=== PATIENT | female | born 1990 | race Caucasian/White ===

== ENCOUNTER 2020-10-30 13:41 | Emergency (ER) | payer OTHER, SELFPAY ==
[2020-10-30 13:57] VITALS: BP 130/84; PULSE 97; RESP 16; TEMP 36.8; O2SAT 100
--- NOTE | 2020-10-30 15:03 | ED.EAR ---
HPI - Ear Problem General Chief complaint: Ear Stated complaint: fb in ear Time Seen by Provider: 10/30/20 15:17 Source: patient Mode of arrival: ambulatory Limitations: no limitations History of Present Illness HPI Narrative: Karina Beasley is a 30 yo feale with a PMH of depression who comes with 4 days of pain in right ear from getting a Q-tip stuck in ear and also has tooth pain and swelling on the left unsure if it is her rear molar are upper left rear tooth pain is a / Related Data Home Medications Medication Instructions Recorded Confirmed bupropion HCl [Wellbutrin SR] 150 mg PO DAILY 10/30/20 10/30/20 fluoxetine [Prozac] 20 mg PO DAILY 10/30/20 10/30/20 Allergies Allergy/AdvReac Type Severity Reaction Status Date / Time Penicillins Allergy Unknown Swelling Verified 10/30/20 14:17 Sulfa (Sulfonamide AdvReac Unknown Nausea and Verified 10/30/20 14:17 Antibiotics) Vomiting preservatives in apple Allergy Severe Swelling Uncoded 02/06/17 12:01 juice/ throat to swell Review of Systems Review of Systems: Narrative: CONSTITUTIONAL: Denies fever, chills, sweats. EYES: Denies visual changes, redness, discharge. ENT: Denies rhinorrhea, congestion, sore throat, right otalgia. Dental pain CARDIOVASCULAR: Denies chest pain, palpitations, edema. RESPIRATORY: Denies dyspnea, wheezing, cough GASTROINTESTINAL: Denies abdominal pain, nausea, vomiting, diarrhea. GENITOURINARY: Denies dysuria, hematuria, abnormal discharge SKIN: Denies rash or itching. NEUROLOGIC: Denies numbness, or focal weakness. PSYCHIATRIC: Denies anxiety or depression. [facility] Past Medical History Medical History Depression Family History Family History Mother Family history of malignant neoplasm of cervix Social History Social History Smoking status: Never smoker Second hand tobacco smoke exposure: Yes Alcohol intake: current Comments At time of signature, I agree with nursing past medical, surgical, social and family history. There is no relevant family history pertinent to the presenting complaint. Exam Narrative: Exam Narrative: GENERAL: This is a well-nourished, well-developed patient, in mild distress. HEAD: normocephalic, atraumatic. EYES: Sclera clear/white. Vision is grossly intact. EARS: External ears normal, auditory canals clear on the left, diffuse white material from Q-tip on ri TMs normal without perforation. Hearing grossly intact. NOSE: External nose normal without nasal discharge, nares without redness, no rhinorrhea. THROAT: Mucous membranes moist, posterior pharynx pink, swelling on right cheek with fractured molar on left lower tooth 18, swelling and cheek is next to left upper teeth NECK: Neck supple, non-tender CARDIOVASCULAR: Regular rate and rhythm without murmurs, gallops, or rubs. RESPIRATORY: Clear to auscultation. Breath sounds equal bilaterally. No wheezes, rales, or rhonchi. GASTROINTESTINAL: Abdomen soft, non-tender, SKIN: warm, intact with no suspicious lesions or rash, good texture and turgor. NEURO: awake, alert, and oriented to person, place and time. There were no obvious focal neurologic abnormalities. Steady gait EXTREMITIES: Normal range of motion. BACK: Nontender without deformity Course Course Emergency Course: Patient here with Q-tip in right ear and tooth pain on left lower jaw with swelling For last year, started on eardrops Started on clindamycin 300 for 10 days 3 times daily for tooth and ear Tylenol 3 for pain Vital Signs Vital signs: Vital Signs Temperature 98.3 F 10/30/20 13:57 Pulse Rate 97 10/30/20 13:57 Respiratory Rate 16 10/30/20 13:57 Blood Pressure 130/84 10/30/20 13:57 Pulse Oximetry 100 10/30/20 13:57 Temperature 98.3 F 10/30/20 13:57 Pulse Rate 97 10/30/20 13:57 Respiratory Rate 16 10/30/20 13:57 Blood Pressure 130/8
== END 2020-10-30 15:44 | disposition home or self-care (01) ==
PROVIDERS: Emergency Provider Nurse Practitioner
DX: T16.1XXA Foreign body in right ear, initial encounter (principal); S02.5XXA Fracture of tooth (traumatic), initial encounter for closed fracture; X58.XXXA Exposure to other specified factors, initial encounter; F32.9 Major depressive disorder, single episode, unspecified
CPT/HCPCS: 99213; G0463

== ENCOUNTER 2023-02-28 19:38 | Inpatient (IN) | payer OTHER, SELFPAY ==
--- NOTE | ~2023-02-28 | MR_ITS ---
EXAMINATION: MR abdomen wo/w con DATE: 03/04/2023 11:35 INDICATION: Ascites. Liver failure. Evaluation of liver and gallbladder lesions. TECHNIQUE: Magnetic resonance imaging (MRI) of the abdomen was performed without and with 14 mL Multi blaze intravenous contrast. Sequences included coronal T2-weighted SS-FSE, coronal and axial FS 2D-F IESTA, axial STIR FSE, axial T2-weighted SS-FSE, axial T2-weighted FS SS-FSE, axial diffusion-weighte d SE, axial dual-echo T1-weighted FSPGR, and axial and coronal T1-weighted LAVA. Postcontrast axial T 1-weighted LAVA images were obtained in a time course. Postcontrast coronal T1-weighted LAVA images w ere obtained. COMPARISON: None. FINDINGS: Arch size is normal. No pericardial or pleural effusion. Moderate-sized sliding-type hiatal hernia. T here is a large amount of ascites throughout the abdomen and pelvis which also extends into the hiata l hernia. Hepatosplenomegaly with the right hepatic lobe measuring up to 26 cm craniocaudal length an d with spleen measuring 13.3 cm in craniocaudal length. Subtle surface nodularity and heterogeneous s ignal to the liver consistent with cirrhosis. There is a tiny T2 hyperintense nonenhancing cyst in th e right hepatic lobe. 3.7 x 2.4 cm region of focal hepatic steatosis along the gallbladder fossa whic h demonstrates increased signal on the fat LAVA Flex images and the in phase images with signal dropo ut on the opposed phase images as well as decreased signal relative to the surrounding renal parenchy ma water LAVA Flex post contrast images. 1.8 cm subtly T2 hyperintense and arterially enhancing lesio n in segment 2 of the liver with no evident capsule or contrast washout on the 5 and 10 minute delaye d images most consistent with a flash filling hemangioma. No intrahepatic biliary ductal dilation. De compressed gallbladder with edematous wall thickening likely related to liver disease. No intralumina l filling defects to suggest cholelithiasis. Pancreas, bilateral adrenal glands and kidneys are zenon l. No bowel obstruction. Small fat and fluid containing umbilical hernia. Extensive mesenteric and claire dy wall edema. No pathologically enlarged abdominal or upper pelvic lymphadenopathy. Bones are unrema rkable with normal marrow signal throughout. IMPRESSION: 1. Cirrhosis mesenteric and body wall edema and large amount of ascites. 2. 3.7 x 2.4 cm region of focal hepatic steatosis along the gallbladder fossa and 1.8 cm LI-RADS 3 ar terially enhancing lesion in segment 2 of liver which remains hyperintense to liver on delayed postco ntrast imaging is likely representing a flash filling hemangioma or focal nodular hyperplasia. Would recommend follow-up imaging in 3-6 months. 3. Mild splenomegaly consistent with secondary portal venous hypertension. Reviewed, dictated and finalized at location A. IMPRESSION: 1. Cirrhosis mesenteric and body wall edema and large amount of ascites. 2. 3.7 x 2.4 cm region of focal hepatic steatosis along the gallbladder fossa a nd 1.8 cm LI-RADS 3 arterially enhancing lesion in segment 2 of liver which rem ains hyperintense to liver on delayed postcontrast imaging is likely representi ng a flash filling hemangioma or focal nodular hyperplasia. Would recommend fol low-up imaging in 3-6 months. 3. Mild splenomegaly consistent with secondary portal venous hypertension.
--- NOTE | ~2023-02-28 | US_ITS ---
EXAMINATION: US paracentesis abd w/image DATE: 03/02/2023 13:55 INDICATION: Ascites. TECHNIQUE: The procedure and its risks and benefits were discussed with the patient. Potential risks discussed included bleeding and infection. The skin was prepped and draped in sterile fashion. 1% lid ocaine was used for local anesthesia. Under ultrasound guidance, a 5 Fr catheter with trochar was adv anced into the ascites in the right lower quadrant. Fluid was aspirated into vacuum bottles. The cath eter was removed, and a dressing was applied. There were no immediate complications. FINDINGS: Ultrasound images demonstrate ascites and the catheter within the fluid. IMPRESSION: 1. Successful ultrasound-guided paracentesis yielding 2600 mL of clear yellow fluid. Reviewed, dictated and finalized at location A. IMPRESSION: 1. Successful ultrasound-guided paracentesis yielding 2600 mL of clear yellow f luid.
--- NOTE | ~2023-02-28 | US_ITS ---
EXAMINATION: US abdomen limited DATE: 03/07/2023 14:27 INDICATION: Ascites TECHNIQUE: Multiple grayscale and Doppler ultrasound images of the abdomen were obtained as a pit clerk f or a planned paracentesis. Findings were discussed with the patient who was given the option to eithe r proceed with the planned paracentesis or defer at this time. Given the relatively small amount of a scites the patient elected to defer the planned paracentesis. COMPARISON: None FINDINGS: Small amount of ascites along the liver in the right upper quadrant along the caudal margin of the li marlen in the right lower quadrant. Minimal ascites in the left abdomen. IMPRESSION: 1. Small amount of right-sided predominant ascites, significantly less than at the time of the most r ecent paracentesis which yielded 2450 mL fluid. Given the small amount of fluid, the patient elected to defer the planned paracentesis at this time. Reviewed, dictated and finalized at location A. IMPRESSION: 1. Small amount of right-sided predominant ascites, significantly less than at the time of the most recent paracentesis which yielded 2450 mL fluid. Given the small amount of fluid, the patient elected to defer the planned paracentesis a t this time.
--- NOTE | ~2023-02-28 | CT_ITS ---
EXAMINATION: CT abdomen pelvis w con INDICATION: Ascites, liver failure, abdominal pain TECHNIQUE: Computed tomographic images of the abdomen and pelvis were obtained after the administrati on of 100 cc of Omnipaque 350 intravenous contrast. The dose-length product (DLP) was 494.75 mGy-cm. Automated exposure control and iterative reconstruction technique were employed. COMPARISON: None available FINDINGS: There is a moderate-sized hiatal hernia containing a portion of the stomach and ascites. Th e heart size is normal. The liver is enlarged and demonstrates heterogeneous enhancement. There is no dularity of the liver surface. There is a 1.4 cm enhancing lesion in liver segment II. There is a 3.7 x 2.3 cm hypoenhancing area of the liver adjacent to the gallbladder fossa. The spleen, pancreas, an d adrenal glands are normal. There is mild wall thickening of the gallbladder, likely related to paperhanger lisa liver disease. Upper abdominal and periesophageal varices are noted. The kidneys are unremarkable . No pathologically enlarged abdominal or pelvic lymph nodes are identified. No free intraperitoneal gas or evidence of bowel obstruction. There is a moderate volume of ascites. The appendix is normal. Mild wall thickening of the ascending and transverse colon may reflect portal colopathy. There is a s mall umbilical hernia containing ascites and fat. IMPRESSION: 1. Cirrhosis with hepatomegaly and portal hypertension. 2. Moderate volume of ascites. 3. Enhancing lesion in the left hepatic lobe and hypoenhancing lesion near the gallbladder fossa whic h are indeterminant but suspicious on a background of cirrhosis. Follow-up MRI without and with contr ast is recommended. Reviewed, dictated and finalized at location F. IMPRESSION: 1. Cirrhosis with hepatomegaly and portal hypertension. 2. Moderate volume of ascites. 3. Enhancing lesion in the left hepatic lobe and hypoenhancing lesion near the gallbladder fossa which are indeterminant but suspicious on a background of cir rhosis. Follow-up MRI without and with contrast is recommended.
--- NOTE | ~2023-02-28 | XR_ITS ---
EXAMINATION: XR chest 2V DATE: 02/28/2023 23:29 INDICATION: Cough TECHNIQUE: Frontal and lateral views of the chest are obtained COMPARISON: None available FINDINGS: The lungs are free of acute opacities. No pleural effusion or pneumothorax. The heart size is normal. There is a moderate-sized sliding hiatal hernia. The visualized bones and soft tissues are unremarkable. IMPRESSION: 1. No acute cardiopulmonary abnormality. Reviewed, dictated and finalized at location F.
--- NOTE | ~2023-02-28 | US_ITS ---
EXAMINATION: US paracentesis abd w/image DATE: 03/05/2023 15:20 INDICATION: Ascites. TECHNIQUE: The procedure and its risks and benefits were discussed with the patient. Potential risks discussed included bleeding and infection. The skin was prepped and draped in sterile fashion. 1% lid ocaine was used for local anesthesia. Under ultrasound guidance, a 5 Fr catheter with trochar was adv anced into the ascites in the right lower quadrant. Fluid was aspirated into vacuum bottles. The cath eter was removed, and a dressing was applied. There were no immediate complications. FINDINGS: Ultrasound images demonstrate ascites and the catheter within the fluid. Also noted is a cirrhotic li marlen with nodular surface. IMPRESSION: 1. Successful ultrasound-guided paracentesis yielding 2450 mL of light crystal-colored fluid. 2. Cirrhosis. Reviewed, dictated and finalized at location A. IMPRESSION: 1. Successful ultrasound-guided paracentesis yielding 2450 mL of light crystal-c olored fluid. 2. Cirrhosis.
[2023-02-28 19:41] VITALS: BP 130/78; PULSE 124; RESP 18; TEMP 37.2; O2SAT 100
--- NOTE | 2023-02-28 23:02 | ECG_ITS ---
Measurements Intervals [place] Rate: 107 P: 47 MT: 159 QRS: -15 QRSD: 97 T: 47 QT: 381 QTc: 509 Interpretive Statements SINUS TACHYCARDIA DELAYED PRECORDIAL R/S TRANSITION BASELINE ARTIFACT- AVR, AVL ABNORMAL ECG NO PREVIOUS ECG AVAILABLE FOR COMPARISON Electronically Signed On 03-01-2023 8:12:25 CDT by Earnest Vitale D.O.
--- NOTE | 2023-02-28 23:05 | ED.ABDPAIN ---
HPI - Abdominal Pain General Chief Complaint: Abdominal Pain <Yolanda Chu PA-C - Last Filed: 03/01/23 04:42> Stated Complaint: abdominal pain <Yolanda Chu PA-C - Last Filed: 03/01/23 04:42> Time Seen by Provider: 02/28/23 22:12 <Yolanda Chu PA-C - Last Filed: 03/01/23 04:42> History of Present Illness HPI narrative: 33-year-old female with a history of what sounds like cirrhosis from alcohol abuse reports for evaluation for abdominal pain and distention, nausea, vomiting, diarrhea and bloating x2 weeks. Reports jaundice for the past few days. She states she was diagnosed in July 2022 at [facility] with liver failure. At that time she was started on spironolactone and Lasix for her liver and heart . When asked about her cardiac history, she states that she has a hole in her heart and her lungs collapsed when she was born. She does not see a limited radiology technician. She states that the past couple days she has had dark and tarry stools but denies hematochezia. She states when she is retching she sees streaks of blood in her vomit but has not vomited a large amount of blood. She denies coffee-ground emesis. She reports intermittent subjective fevers since the onset of symptoms. States the past couple of days she has noticed a small amount of swelling in her lower extremities. Patient states she used to drink 1/5 of day for 2 years, however stopped drinking after she was diagnosed with cirrhosis. She believes she has a hide measuring machine operator at [place], however has not seen them since September and is unsure of the name. She also states she was out of her furosemide and Lasix for 2 weeks, however got the prescriptions again and has been taking for the past 2 weeks. Patient states she has had a cough and congestion for the past month. She denies dysuria, hematuria, IV drug use, history of hepatitis. Abdominal surgeries include a tubal ligation 3 years ago. LMP 3 months ago which she states can be normal for her. She denies chest pain or shortness of breath. She has never required a paracentesis. <Yolanda Chu PA-C - Last Filed: 03/01/23 04:42> Related Data Allergies/Adverse Reactions: Allergies Allergy/AdvReac Type Severity Reaction Status Date / Time apple Allergy Anaphylaxis Verified 03/01/23 00:13 Penicillins Allergy Anaphylaxis Verified 03/01/23 00:12 <Yolanda Cuh PA-C - Last Filed: 03/01/23 04:42> Review of Systems Review of Systems: CONSTITUTIONAL: See HPI EYES: Denies visual changes, redness, or discharge. ENT: See HPI CARDIOVASCULAR: Denies chest pain, palpitations, or edema. RESPIRATORY: See HPI GASTROINTESTINAL: See HPI GENITOURINARY: Denies dysuria or hematuria. SKIN: Denies rash or itching. MUSCULOSKELETAL: Denies back pain, joint pain, or myalgia. NEUROLOGIC: Denies headache, numbness, dizziness, or weakness. PSYCHIATRIC: Denies anxiety or depression. <Yolanda Chu PA-C - Last Filed: 03/01/23 04:42> Exam Narrative: GENERAL: Ill-appearing, in no acute distress. HEAD: Normocephalic EYES: PERRLA. Scleral icterus ENT: Nares clear. Mucous membranes moist. Oropharynx without tonsillar hypertrophy exudate or other lesions. NECK: Supple. CHEST: No respiratory distress. Clear to auscultation, no adventitious breath sounds. HEART: Regular rate and rhythm. Systolic murmur present. Normal peripheral pulses. ABDOMEN: Distended round abdomen. Positive fluid wave. Hepatomegaly. Tenderness in the right upper quadrant and epigastrium with guarding. No rigidity. Rebound tenderness present. Rectal exam without melena or hematochezia. Hemoccult negative EXTREMITIES: Normal range of motion. No edema SKIN: Jaundice NEURO: No focal deficits. Alert and oriented x3. PSYCH: Normal mood and affect. <Yolanda Chu PA-C - Last Filed: 03/01/23 04:42> Course Course Emergency Course: 04:00 - This patient was signed out to me by ADDY Chu, pending CT abdo
[2023-02-28 23:34] LABS: Basophils Absolute Auto 0.1 K/mm3 (0.0-0.1); Basophils Percent Auto 0.7 % (0.2-1.2); Eosinophils Absolute Auto 0.1 K/mm3 (0-0.3); Eosinophils Percent Auto 0.6 % (0-4.4); Hematocrit 24.1 % (37.0-47.0); Hemoglobin 7.6 g/dL (12.0-15.0); Immature Granulocyte Absolute 0.15 K/mm3 (0.00-0.031); Immature Granulocyte Percent A 0.8 % (0-0.5); Lymphocytes Absolute Auto 2.09 K/mm3 (0.9-3.2); Lymphocytes Percent Auto 11.4 % (18.3-44.2); Mean Corpuscular HGB Conc 31.5 g/dl (32-36); Mean Corpuscular Hemoglobin 31.7 pg (26-34); Mean Corpuscular Volume 100.4 fl (80-100); Mean Platelet Volume 9.9 fl (7.4-10.4); Monocytes Absolute Auto 1.3 K/mm3 (0.1-0.6); Monocytes Percent Auto 6.9 % (2.6-8.5); Neutrophils Absolute Auto 14.6 K/mm3 (1.3-6.7); Neutrophils Percent Auto 79.6 % (45.5-73.1); Platelet Count Result 289 k/mm3 (150-375); Red Cell Distribution Width 18.6 % (11.5-14.5); White Blood Count 18.4 K/mm3 (4.5-10.0)
[2023-02-28 23:53] LABS: Alanine Aminotransferase 19 U/L (6-35); Alkaline Phosphatase 350 U/L (38-126); Aspartate Amino Transferase 100 U/L (14-36); Bilirubin,Total 8.2 mg/dL (0.2-1.3); Lactic Acid Reflex 1.9 mmol/L (0.7-2.0); Lipase 20 U/L (23-300); Magnesium 1.3 mg/dL (1.6-2.3); Phosphorus 2.1 mg/dL (2.5-4.5)
[2023-03-01] VITALS (62 sets, daily range): BP systolic 91–124; BP diastolic 55–82; PULSE 100–115; RESP 10–29; TEMP 37.1–37.2; O2SAT 92–100; BMI 28.4
[2023-03-01 00:06] LABS: Anion Gap 9 mmol/L (8-16); Blood Urea Nitrogen 3 mg/dL (7-17); Calcium 7.2 mg/dL (8.4-10.2); Carbon Dioxide 30 mmol/L (22-30); Chloride 92 mmol/L (98-107); Estimated CRCL calculation 115 ml/min; Estimated Glomerular Filt Rate > 60; Glucose 99 mg/dL (65-110); Potassium 2.4 mmol/L (3.4-5.0); Sodium 131 mmol/L (137-145)
[2023-03-01 00:13] LABS: Influenza A QL RT-PCR Negative (Negative); Influenza B QL RT-PCR Negative (Negative); SARS-CoV-2 RNA PCR Negative (Negative)
[2023-03-01] MEDS: ONDANSETRON INJ 4 MG/2 ML VIAL IV PUSH ×3 (00:14→16:05)
[2023-03-01 00:16] LABS: Appearance Urine Cloudy (Clear); Bacteria Urine None Seen /hpf; Bilirubin Urine 3+ (Negative); Blood Urine Negative (Negative); Color Urine Orange (Yellow); Glucose Urine UA Trace mg/dL (Negative); Ketones Urine Trace mg/dL (Negative); Leukocyte Esterase Ur 2+ LEU/UL (Negative); Nitrate Urine Positive (Negative); Non Pathogenic Casts 0-2; Protein Urine 2+ mg/dL (Negative); Squamous Epithelial Cell Urine Many /hpf (Few); WBC Urine 0-5 /hpf
[2023-03-01 00:17] LABS: Need Manual Microscopic Reviewed
[2023-03-01 00:20] LABS: Add Urine Microscopic? YES
[2023-03-01 00:37] LABS: Ammonia 43 umol/L (9-30)
[2023-03-01 00:38] LABS: INR 1.6; Prothrombin Time 19.5 Seconds (11.1-14.7)
[2023-03-01] MEDS: POTASSIUM CHLORIDE 20 MEQ PACKET (FOR LIQUID) 40 MEQ PO (00:42)
[2023-03-01] MEDS: MAGNESIUM SULF 1 GM/D5W 100 ML 1 GM/100 ML BAG IVPB (00:44)
[2023-03-01] MEDS: SODIUM CHLORIDE 0.9% IV 1,000 ML 999 ML IV CONT (01:51)
[2023-03-01] MEDS: POTASSIUM CHLORIDE INJ 40 MEQ in SODIUM CHLORIDE 0.9% IV 500 ML 130 MEQ IVPB (02:56)
--- NOTE | 2023-03-01 07:23 | PC.NURSE ---
Report to ROSANNE Oreilly
--- NOTE | 2023-03-01 08:46 | ADMGEN ---
This patient, Karina Beasley, was admitted to [facility] Surg Room 312-01. Patient/family oriented to hospital policies and general routines including ID bracelet, bed and alarms, visiting hours, pain management, procedures, bathroom and other care routines, personal items, smoking policy, room service/diet, and visiting hours. Information on how to activate the Rapid Response Team has been discussed. Patient/Family are encouraged to report perceived risks to care and to ask questions if they do not understand what they are told or what they should do.
[2023-03-01] MEDS: FUROSEMIDE 20 MG TABLET PO (10:15)
[2023-03-01] MEDS: FLUoxetine HCL 20 MG CAPSULE PO (10:15)
[2023-03-01] MEDS: PANTOPRAZOLE 40 MG TABLET PO (10:15)
[2023-03-01] MEDS: MORPHINE SULFATE (*CRX) 2 MG/ML INJ IV PUSH ×3 (10:16→20:28)
[2023-03-01] MEDS: NICOTINE (*PBKC) 14 MG PATCH 1 PATCH TRANSDERM (10:16)
[2023-03-01] MEDS: SPIRONOLACTONE 50 MG TABLET PO (10:16)
[2023-03-01 10:57] LABS: Albumin Level 3.4 g/dL (3.5-5.1)
--- NOTE | 2023-03-01 11:27 | PC.NURSE ---
ultrasound unable to do paracentesis today. They need the patient npo after 6 am tomorrow and they will do the procedure in the afternoon. Ultrasound states that they will obtain the consent for the procedure and that they will do it tomorrow
--- NOTE | 2023-03-01 15:06 | PM.IMHP ---
H&P: HPI History of Present Illness Date/Time: 03/01/23 15:06 Chief Complaint: abdominal pain Narrative: Patient is a 33-year-old female with past medical history of cirrhosis secondary alcohol abuse, GERD, anxiety who presents to ED with complaints of abdominal pain. Patient states she was diagnosed with alcohol cirrhosis July 2022. Her last drink was 1 week ago. She has never had paracentesis before. She does have some family history of cirrhosis with her mother who at age 47 from brain aneurysm. She has never had SBP before. She denies fever, chills, nausea vomiting. patient was abdominal pain diarrhea. The ED: She was found to have leukocytosis 18.4 K, profound hypokalemia 2.4, mag 1.3, AST 100, ammonia 43. S concern for UTI as well SBP in patient has been started on Rocephin. With decompensated cirrhosis patient admitted for further management. Review of Systems Review of Systems: Constitutional: No Fever, No Chills, No Night Sweats, No Fatigue, No Malaise ENT/Mouth: No Hearing Changes, No Ear Pain, No Nasal Congestion, No Sinus Pain, No Hoarseness, No sore throat, No Rhinorrhea, No Swallowing Difficulty Eyes: No Eye Pain, No Redness, No Vision Changes Cardiovascular: No Chest Pain, No Palpitations, No Dyspnea on Exertion, No Orthopnea, No Claudication, No Edema Respiratory: No Cough, No Sputum, No Wheezing, No Shortness of Breath Gastrointestinal: endorses abdominal pain, diarrhea Genitourinary: No Dysuria, No Urinary Frequency, No Hematuria, No Urinary Incontinence, No Urgency Musculoskeletal: No Arthralgias, No Myalgias, No Joint Swelling, No Joint Stiffness, No Back Pain Skin: No Skin Lesions, No Pruritis, No Hair Changes Neuro: No Weakness, No Numbness, No Paresthesias, No Loss of Consciousness, No Syncope, No Dizziness, No Headache Psych: No Anxiety/Panic, No Depression, No Insomnia Heme: No Bruising, No Bleeding Lymph: No Adenopathy Endocrine: No Polyuria, No Polydipsia, No Temperature Intolerance PMFSH Past Medical History Medical History (Updated 03/01/23 @ 15:13 by Bert Lemon DO) Alcoholic cirrhosis of liver with ascites Depression Family History Family History (Updated 03/01/23 @ 15:10 by Bert Lemon DO) Mother Cirrhosis Brain aneurysm Social History Social History (Updated 03/01/23 @ 15:11 by Bert Lemon DO) Social History: last drink alcohol 12/2022. smokes 5cig/day Smoking status: Current every day smoker Tobacco type: cigarettes Alcohol intake: former Substance use: current Substance use type: marijuana Last use: 02/28/23 Lack of Transportation: No Lack of Food: Never True Current Housing: I Have Housing Concerned About Future Housing: No Difficulty Paying Gas/Electric Bills: No Difficulty Paying for Meds: No Currently Unemployed: No Education: High School Diploma/GED Difficulty w/ Childcare or Family Care: No Spiritual care concerns: No Meds Home Medications and Allergies Home Medications Medication Instructions Recorded Confirmed Type fluoxetine 20 mg capsule 20 mg PO DAILY 03/01/23 03/01/23 History furosemide 20 mg tablet 20 mg PO DAILY 03/01/23 03/01/23 History omeprazole 20 mg capsule,delayed 20 mg PO DAILY 03/01/23 03/01/23 History release spironolactone 50 mg tablet 50 mg PO DAILY 03/01/23 03/01/23 History Allergies Allergy/AdvReac Type Severity Reaction Status Date / Time apple Allergy Anaphylaxis Verified 03/01/23 00:13 Penicillins Allergy Anaphylaxis Verified 03/01/23 00:12 Sulfa (Sulfonamide AdvReac Nausea and Verified 03/01/23 09:06 Antibiotics) Vomiting Vital Signs Vital Signs - 24 hr 02/28/23 19:41 03/01/23 00:11 03/01/23 00:12 Temperature 37.2 C Pulse Rate 124 H 113 H Respiratory Rate 18 10 L Blood Pressure 130/78 109/66 Pulse Oximetry 100 95 95 Oxygen Delivery Room Air 03/01/23 00:15 03/01/23 00:16 03/01/23 00:43 Temperature Pu
[2023-03-01] MEDS: POTASSIUM CHLORIDE 20 MEQ ER TABLET 40 MEQ PO (16:05)
[2023-03-01] MEDS: MAGNESIUM SULF 4 GM/WATER100ML 4 GM/100 ML BAG IVPB (16:05)
[2023-03-01] MEDS: prednisoLONE ORAL SOLN 30 MG/10 ML SOLUTION 40 MG PO (16:42)
[2023-03-02 06:00] VITALS: BP 109/60; PULSE 112; RESP 14; TEMP 36.7; O2SAT 97
[2023-03-02 06:57] LABS: Basophils Absolute Auto 0.1 K/mm3 (0.0-0.1); Basophils Percent Auto 0.4 % (0.2-1.2); Eosinophils Percent Auto 0.2 % (0-4.4); Hematocrit 26.4 % (37.0-47.0); Immature Granulocyte Absolute 0.17 K/mm3 (0.00-0.031); Lymphocytes Absolute Auto 1.26 K/mm3 (0.9-3.2); Lymphocytes Percent Auto 7.3 % (18.3-44.2); Mean Corpuscular HGB Conc 30.3 g/dl (32-36); Mean Corpuscular Hemoglobin 31.3 pg (26-34); Mean Corpuscular Volume 103.1 fl (80-100); Mean Platelet Volume 10.2 fl (7.4-10.4); Monocytes Absolute Auto 0.9 K/mm3 (0.1-0.6); Monocytes Percent Auto 5.3 % (2.6-8.5); Neutrophils Absolute Auto 14.9 K/mm3 (1.3-6.7); Neutrophils Percent Auto 85.8 % (45.5-73.1); Platelet Count Result 299 k/mm3 (150-375); Red Blood Count 2.56 M/mm3 (4.2-5.4); Red Cell Distribution Width 18.4 % (11.5-14.5); White Blood Count 17.3 K/mm3 (4.5-10.0)
[2023-03-02 07:10] LABS: INR 1.6; Prothrombin Time 20.2 Seconds (11.1-14.7)
[2023-03-02 07:15] LABS: Alanine Aminotransferase 19 U/L (6-35); Albumin Level 3.2 g/dL (3.5-5.1); Alkaline Phosphatase 444 U/L (38-126); Anion Gap 6 mmol/L (8-16); Aspartate Amino Transferase 62 U/L (14-36); Bilirubin Direct 1.7 mg/dL (0-0.3); Bilirubin,Total 6.7 mg/dL (0.2-1.3); Blood Urea Nitrogen 2 mg/dL (7-17); Calcium 7.8 mg/dL (8.4-10.2); Carbon Dioxide 29 mmol/L (22-30); Chloride 100 mmol/L (98-107); Estimated CRCL calculation 146 ml/min; Estimated Glomerular Filt Rate > 60; Glucose 128 mg/dL (65-110); Magnesium 2.2 mg/dL (1.6-2.3); Potassium 3.9 mmol/L (3.4-5.0); Sodium 135 mmol/L (137-145)
[2023-03-02 07:45] LABS: Hepatitis B Surface Antigen Negative (Negative)
[2023-03-02 07:50] LABS: HAV RESULT Negative (Negative); Hepatitis B Core IgM Result Negative (Negative)
[2023-03-02 08:00] VITALS: BP 120/87; PULSE 96; RESP 18; TEMP 35.9; O2SAT 98
[2023-03-02 08:02] LABS: Hepatitis C Virus Antibody Negative (Negative)
[2023-03-02] MEDS: POTASSIUM CHLORIDE 20 MEQ ER TABLET 40 MEQ PO (08:21)
[2023-03-02] MEDS: FLUoxetine HCL 20 MG CAPSULE PO (08:21)
[2023-03-02] MEDS: FUROSEMIDE 20 MG TABLET PO (08:21)
[2023-03-02] MEDS: SPIRONOLACTONE 50 MG TABLET PO (08:21)
[2023-03-02] MEDS: PANTOPRAZOLE 40 MG TABLET PO (08:22)
[2023-03-02] MEDS: THIAMINE HCL 100 MG TABLET PO (08:22)
[2023-03-02] MEDS: MULTIVITAMINS THERAPEUTIC TAB (*BKC) 1 TABLET PO (08:22)
[2023-03-02] MEDS: FOLIC ACID 1 MG TABLET PO (08:22)
[2023-03-02] MEDS: MORPHINE SULFATE (*CRX) 2 MG/ML INJ IV PUSH ×3 (08:22→20:43)
[2023-03-02] MEDS: NICOTINE (*PBKC) 14 MG PATCH 1 PATCH TRANSDERM (08:22)
[2023-03-02] MEDS: prednisoLONE ORAL SOLN 30 MG/10 ML SOLUTION 40 MG PO (08:23)
[2023-03-02 10:03] VITALS: O2SAT 94
--- NOTE | 2023-03-02 10:35 | PM.IMPN ---
Progress Note: A&P Assessment and Plan (1) SBP (spontaneous bacterial peritonitis): Code(s): K65.2 - Spontaneous bacterial peritonitis Status: Acute (2) Alcoholic cirrhosis of liver with ascites: Code(s): K70.31 - Alcoholic cirrhosis of liver with ascites Status: Acute (3) Sepsis: Qualifiers: Sepsis acute organ dysfunction status: unspecified Sepsis type: sepsis due to unspecified organism Qualified Code(s): A41.9 - Sepsis, unspecified organism Code(s): A41.9 - Sepsis, unspecified organism Status: Acute Plan # decompensated alcohol cirrhosis # likely SBP # alcohol hepatitis -patient has alcohol cirrhosis diagnosed July 2022, history of alcohol abuse with most recent drink 1 week prior to hospitalization -patient has ascites with no history of paracentesis -diagnostic paracentesis today, labs ordered, will follow cultures -antibiotics: Continue Rocephin -monitor fever curve -trend labs in a.m. for MELD -abdominal CT scan concerning for cirrhosis with portal hypertension -mildly elevated ammonia at 43, no altered mental status, patient has diarrhea hold off lactulose -has been managing with Lasix and Aldactone -antibiotics Zofran -pain control:? Tylenol norco morphine -Bennett discriminant function: 42.7 which is >32, continue glucocorticoids prednisolone 40mg daily 03/01- -MELD score 19: 6% 3 month mortality # electrolyte disturbances -potassium 3.9, repleted -sodium 135 consistent with alcohol cirrhosis -magnesium 2.2, repleted # left hepatic lobe enhancing lesion -patient will need follow-up with liver MRI with and without contrast -plan for paracentesis today, MRI can be ordered after ascitic fluid removed -with concern for possible SBP will have to hold off on biopsy, will need to schedule for outpatient # chronic conditions -GERD:? Omeprazole -depression: Fluoxetine -alcohol use disorder: Last drink a week ago, no signs of withdrawal. giving vitamins thiamine, folic acid, multivitamin Diet:??NPO for paracentesis, regular diet afterwards DVT prophylaxis:??SCDs, holding chemoprophylaxis for procedure Code status: Full code Disposition:?home >2 days Subjective Date/time seen: 03/02/23 10:35 Interval history: Patient seen and examined. She feels better today. Plan for paracentesis today, diagnostic labs were ordered and for culture. Meld score 19. Continue antibiotics for possible SBP. She denies fever, chills, nausea vomiting diarrhea. She still has significantly distended abdomen which is tender. Review of Systems Review of Systems: 10 point ROS complete, negative other than what is specified in HPI. Exam Narrative: - GENERAL:? Thin jaundice woman in no acute distress, cirrhotic appearing - EYES: EOMI. icteric. - HENT: Moist mucous membranes. - LUNGS: Clear to auscultation bilaterally, no wheezing, rhonchi, or rales. - CARDIOVASCULAR: Regular rate and rhythm. No murmur. - ABDOMEN: Soft, distended, tender on palpation, +fluid wave - EXTREMITIES: No edema. Peripheral pulses 2+. Non-tender. - NEUROLOGIC: No focal neurological deficits. CN II-XII grossly intact. - PSYCHIATRIC: Awake, Alert and oriented x 3. Appropriate mood and affect. - SKIN: jaundice Objective Data Vital Signs Vital Signs: Vital Signs - 24 hr 03/01/23 14:00 03/01/23 22:00 03/01/23 20:00 Temperature 37.2 C 37.1 C Pulse Rate 112 H 115 H 115 H Respiratory Rate 16 14 14 Blood Pressure 118/82 124/81 Pulse Oximetry 100 96 96 Oxygen Delivery Room Air 03/02/23 06:00 03/02/23 08:00 03/02/23 10:03 Temperature 36.7 C Pulse Rate 112 H Respiratory Rate 14 Blood Pressure 109/60 Pulse Oximetry 97 94 Oxygen Delivery Room Air Room Air Intake/Output Intake/Output: Intake & Output 02/27/23 02/28/23 03/01/23 03/02/23 23:59 23:59 23:59 23:59 Intake Total 2150 500 Balance 2150 500 Meds/Results Medications: Active Medications Generic Name Do
[2023-03-02 14:39] LABS: Appearance Peritoneal Fluid Hazy (Clear); Source Peritoneal Fluid Peritoneal Fluid
[2023-03-02 14:40] LABS: Color Peritoneal Fluid Yellow (Colorless); Lymphocytes Peritoneal Fluid 9 %; Neutrophils Peritoneal Fluid 6 % (0-25); Nucleated Cells Peritoneal Flu 115 /uL (0-500); RBC Peritoneal Fluid < 2000 /uL (0-100000)
[2023-03-02 14:41] LABS: Macrophages Peritoneal Fluid 65 %; Monocytes Peritoneal Fluid 20 %
[2023-03-02 16:00] VITALS: BP 120/87; PULSE 96; RESP 18; TEMP 35.9; O2SAT 98
[2023-03-02 20:00] VITALS: PULSE 110; RESP 18; O2SAT 97
[2023-03-02 21:09] VITALS: BP 112/74; PULSE 110; RESP 18; TEMP 36.3; O2SAT 97
[2023-03-03 05:21] VITALS: BP 113/70; PULSE 109; RESP 16; TEMP 36.5; O2SAT 96
[2023-03-03 06:55] LABS: Basophils Absolute Auto 0.1 K/mm3 (0.0-0.1); Basophils Percent Auto 0.4 % (0.2-1.2); Eosinophils Absolute Auto 0.1 K/mm3 (0-0.3); Eosinophils Percent Auto 0.5 % (0-4.4); Hematocrit 30.8 % (37.0-47.0); Immature Granulocyte Percent A 1.8 % (0-0.5); Lymphocytes Absolute Auto 2.55 K/mm3 (0.9-3.2); Lymphocytes Percent Auto 11.3 % (18.3-44.2); Mean Corpuscular HGB Conc 29.2 g/dl (32-36); Mean Corpuscular Hemoglobin 31.8 pg (26-34); Mean Corpuscular Volume 108.8 fl (80-100); Mean Platelet Volume 10.3 fl (7.4-10.4); Monocytes Absolute Auto 1.1 K/mm3 (0.1-0.6); Monocytes Percent Auto 4.8 % (2.6-8.5); Neutrophils Absolute Auto 18.4 K/mm3 (1.3-6.7); Neutrophils Percent Auto 81.2 % (45.5-73.1); Nucleated Red Blood Cells Perc 0.1 % (0.0-0.2); Platelet Count Result 354 k/mm3 (150-375); Red Blood Count 2.83 M/mm3 (4.2-5.4); Red Cell Distribution Width 18.7 % (11.5-14.5); White Blood Count 22.6 K/mm3 (4.5-10.0)
[2023-03-03 06:58] LABS: Alanine Aminotransferase 20 U/L (6-35); Albumin Level 3.3 g/dL (3.5-5.1); Alkaline Phosphatase 444 U/L (38-126); Anion Gap 8 mmol/L (8-16); Aspartate Amino Transferase 97 U/L (14-36); Bilirubin,Total 6.6 mg/dL (0.2-1.3); Blood Urea Nitrogen 5 mg/dL (7-17); Calcium 8.4 mg/dL (8.4-10.2); Carbon Dioxide 27 mmol/L (22-30); Chloride 102 mmol/L (98-107); Estimated CRCL calculation 120 ml/min; Estimated Glomerular Filt Rate > 60; Glucose 109 mg/dL (65-110); Magnesium 1.9 mg/dL (1.6-2.3); Potassium 3.9 mmol/L (3.4-5.0); Sodium 137 mmol/L (137-145)
[2023-03-03 07:01] LABS: INR 1.4; Prothrombin Time 17.3 Seconds (11.1-14.7)
[2023-03-03 07:30] LABS: Anisocytosis 1+ (NORMAL); Platelet Estimate Adequate (Adequate)
[2023-03-03 07:31] LABS: Hypochromasia 1+ (NORMAL); Schistocytes None Seen (NORMAL)
[2023-03-03] MEDS: FUROSEMIDE 20 MG TABLET PO (09:14)
[2023-03-03] MEDS: prednisoLONE ORAL SOLN 30 MG/10 ML SOLUTION 40 MG PO (09:14)
[2023-03-03] MEDS: MULTIVITAMINS THERAPEUTIC TAB (*BKC) 1 TABLET PO (09:14)
[2023-03-03] MEDS: THIAMINE HCL 100 MG TABLET PO (09:14)
[2023-03-03] MEDS: FLUoxetine HCL 20 MG CAPSULE PO (09:14)
[2023-03-03] MEDS: PANTOPRAZOLE 40 MG TABLET PO (09:14)
[2023-03-03] MEDS: SPIRONOLACTONE 50 MG TABLET PO (09:14)
[2023-03-03] MEDS: FOLIC ACID 1 MG TABLET PO (09:14)
[2023-03-03] MEDS: NICOTINE (*PBKC) 14 MG PATCH 1 PATCH TRANSDERM (09:20)
[2023-03-03] MEDS: MORPHINE SULFATE (*CRX) 2 MG/ML INJ IV PUSH ×2 (09:20→22:01)
[2023-03-03 14:28] VITALS: BP 110/62; PULSE 106; RESP 16; TEMP 36.6; O2SAT 95
[2023-03-03 20:00] VITALS: PULSE 88; RESP 13; O2SAT 97
--- NOTE | 2023-03-03 21:48 | PM.IMPN ---
Progress Note: A&P Assessment and Plan (1) SBP (spontaneous bacterial peritonitis): Code(s): K65.2 - Spontaneous bacterial peritonitis Status: Acute (2) Alcoholic cirrhosis of liver with ascites: Code(s): K70.31 - Alcoholic cirrhosis of liver with ascites Status: Acute (3) UTI (urinary tract infection): Qualifiers: Hematuria presence: with hematuria Urinary tract infection type: acute cystitis Qualified Code(s): N30.01 - Acute cystitis with hematuria Code(s): N39.0 - Urinary tract infection, site not specified Status: Acute (4) Sepsis: Qualifiers: Sepsis acute organ dysfunction status: unspecified Sepsis type: sepsis due to unspecified organism Qualified Code(s): A41.9 - Sepsis, unspecified organism Code(s): A41.9 - Sepsis, unspecified organism Status: Acute (5) Hypokalemia: Code(s): E87.6 - Hypokalemia Status: Acute Plan Plan # decompensated alcohol cirrhosis # likely SBP # alcohol hepatitis -patient has alcohol cirrhosis diagnosed July 2022, history of alcohol abuse with most recent drink 1 week prior to hospitalization -patient has ascites with no history of paracentesis -diagnostic?paracentesis done, labs pending, gram stain negative -antibiotics: Continue Rocephin -monitor fever curve -trend labs in a.m. for MELD -abdominal CT scan concerning for cirrhosis with portal hypertension -mildly elevated ammonia at 43, no altered mental status, patient has diarrhea hold off lactulose -has been managing with Lasix and Aldactone -antibiotics Zofran -pain control:? Tylenol norco morphine -Bennett discriminant function: 42.7 which is >32, continue glucocorticoids prednisolone 40mg daily 03/01- -MELD score 19: 6% 3 month mortality - will likely need another paracentesis with albumin until more is drained - ct prednisolone 40mg/day for alcoholic hepatitis # electrolyte disturbances -potassium 3.9, repleted -sodium 135 consistent with alcohol cirrhosis -magnesium 2.2, repleted # left hepatic lobe enhancing lesion - had paracentesis - mri w/wo con for liver lesions # chronic conditions -GERD:? Omeprazole -depression: Fluoxetine -alcohol use disorder: Last drink a week ago, no signs of withdrawal. giving vitamins thiamine, folic acid, multivitamin Diet:??regular diet, low sodium preferably DVT prophylaxis:??SCDs, holding chemoprophylaxis for procedure Code status: Full code Disposition:?home >2 days Subjective Date/time seen: 03/03/23 21:48 Interval history: still has abd pain and abd distention after paracentesis Exam Narrative: - GENERAL:? Thin jaundice woman in no acute distress, cirrhotic appearing - EYES: EOMI. icteric. - HENT: Moist mucous membranes. - LUNGS: Clear to auscultation bilaterally, no wheezing, rhonchi, or rales. - CARDIOVASCULAR: Regular rate and rhythm. No murmur. - ABDOMEN: Soft, distended, tender on palpation, +fluid wave - EXTREMITIES: No edema. Peripheral pulses 2+. Non-tender. - NEUROLOGIC: No focal neurological deficits. CN II-XII grossly intact. - PSYCHIATRIC: Awake, Alert and oriented x 3. Appropriate mood and affect. - SKIN: jaundice Objective Data Vital Signs Vital Signs: Vital Signs - 24 hr 03/03/23 05:21 03/03/23 08:00 03/03/23 14:28 Temperature 97.7 F 98 F Pulse Rate 109 H 106 H Respiratory Rate 16 16 Blood Pressure 113/70 110/62 Pulse Oximetry 96 95 Oxygen Delivery Room Air Intake/Output Intake/Output: Intake & Output 02/28/23 03/01/23 03/02/23 03/03/23 23:59 23:59 23:59 23:59 Intake Total 2200 1580 2520 Output Total 2600 Balance 2200 -1020 2520 Meds/Results Medications: Active Medications Generic Name Dose Route Start Last Admin Trade Name Freq PRN Reason Stop Dose Admin Acetaminophen 650 mg 03/01/23 09:46 Acetaminophen 325 Mg Tablet PO Q4H PRN Mild Pain (1-3) or Fever Hydrocodone Bitart/Acetaminophen 1 tab 03/01
[2023-03-03 22:21] VITALS: BP 103/64; PULSE 88; RESP 13; TEMP 36.6; O2SAT 97
[2023-03-04 05:19] VITALS: BP 121/75; PULSE 92; RESP 12; TEMP 37.3; O2SAT 98
[2023-03-04] MEDS: MORPHINE SULFATE (*CRX) 2 MG/ML INJ IV PUSH ×3 (08:43→20:13)
[2023-03-04] MEDS: NICOTINE (*PBKC) 14 MG PATCH 1 PATCH TRANSDERM (08:46)
[2023-03-04] MEDS: prednisoLONE ORAL SOLN 30 MG/10 ML SOLUTION 40 MG PO (08:47)
[2023-03-04] MEDS: SPIRONOLACTONE 50 MG TABLET PO ×2 (08:50→16:31)
[2023-03-04] MEDS: FUROSEMIDE 20 MG TABLET PO ×2 (08:50→16:30)
[2023-03-04] MEDS: PANTOPRAZOLE 40 MG TABLET PO (08:50)
[2023-03-04] MEDS: THIAMINE HCL 100 MG TABLET PO (08:50)
[2023-03-04] MEDS: FOLIC ACID 1 MG TABLET PO (08:50)
[2023-03-04] MEDS: MULTIVITAMINS THERAPEUTIC TAB (*BKC) 1 TABLET PO (08:51)
[2023-03-04] MEDS: FLUoxetine HCL 20 MG CAPSULE PO (08:51)
[2023-03-04 14:00] VITALS: BP 99/59; PULSE 84; RESP 16; TEMP 37.1; O2SAT 92
--- NOTE | 2023-03-04 14:58 | PM.IMPN ---
Progress Note: A&P Assessment and Plan (1) Hypokalemia: Code(s): E87.6 - Hypokalemia Status: Acute (2) Sepsis: Qualifiers: Sepsis acute organ dysfunction status: unspecified Sepsis type: sepsis due to unspecified organism Qualified Code(s): A41.9 - Sepsis, unspecified organism Code(s): A41.9 - Sepsis, unspecified organism Status: Acute (3) UTI (urinary tract infection): Qualifiers: Hematuria presence: with hematuria Urinary tract infection type: acute cystitis Qualified Code(s): N30.01 - Acute cystitis with hematuria Code(s): N39.0 - Urinary tract infection, site not specified Status: Acute (4) Alcoholic cirrhosis of liver with ascites: Code(s): K70.31 - Alcoholic cirrhosis of liver with ascites Status: Acute (5) SBP (spontaneous bacterial peritonitis): Code(s): K65.2 - Spontaneous bacterial peritonitis Status: Acute Plan # decompensated alcohol cirrhosis # likely SBP -patient has alcohol cirrhosis diagnosed July 2022, history of alcohol abuse with most recent drink 1 week prior to hospitalization -patient has ascites with no history of paracentesis -diagnostic?paracentesis done, labs pending, gram stain negative - only 2.6L taken out. pt needs another therapeutic tap. albumin 25g/3L of fluid taken out needs to be done. 2nd gram stain/cx needed as well. ct rocephin until 2nd gram stain. - 2nd therapeutic tap scheduled for tomorrow. pre-procedural morphine 2mg added. give as much sedation as needed for fluid removal. -abdominal CT scan concerning for cirrhosis with portal hypertension -mildly elevated ammonia at 43, no altered mental status, patient has diarrhea hold off lactulose -has been managing with Lasix and Aldactone- need to increase to 100 mg aldactone, 40 mg lasix -antibiotics Zofran -pain control:? Tylenol norco morphine -Bennett discriminant function: 42.7 which is >32, continue glucocorticoids prednisolone 40mg daily 03/01- -MELD score 19: 6% 3 month mortality # alcohol hepatitis - ct prednisolone 40mg/day for alcoholic hepatitis -trend labs in a.m. for MELD - unclear if prednisolone is working. bilirubin is stable. recommend switching to pentoxyfilline and stopping steroid if wbc does not decrease # electrolyte disturbances - repleted - f/u repeat labs # left hepatic lobe enhancing lesion - had paracentesis - mri w/wo con for liver lesions - pending mri result # chronic conditions -GERD:? Omeprazole -depression: Fluoxetine -alcohol use disorder: Last drink a week ago, no signs of withdrawal. giving vitamins thiamine, folic acid, multivitamin - wants to start antabuse after dc. we do not have it here. Diet:??regular diet, low sodium preferably DVT prophylaxis:??SCDs, holding chemoprophylaxis for procedure Code status: Full code Disposition:?home >2 days Time Spent With Patient Time: 45 min. Subjective Date/time seen: 03/04/23 14:58 Interval history: no real changes. still has abd pain. notes minimal decrease in abd swelling. 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 requesting melatonin tonight. discussed preprocedural morphine and postprocedural albumin. discussed increased aldactone/lasix to 100mg/40mg. Review of Systems Review of Systems: see subj. NOS. Exam Narrative: - GENERAL:? Thin jaundice woman in no acute distress, cirrhotic appearing - EYES: EOMI. icteric. - HENT: Moist mucous membranes. - LUNGS: Clear to auscultation bilaterally, no wheezing, rhonchi, or rales. - CARDIOVASCULAR: Regular rate and rhythm. No murmur. - ABDOMEN: Soft, distended, tender on palpation, +fluid wave - EXTREMITIES: No edema. Peripheral pulses 2+. Non-tender. - NEUROLOGIC: No focal neurological deficits. CN II-XII grossly intact. - PSYCHIATRIC: Awake, Alert and oriented x 3. Appropriate mood and affect. - SKIN: jaundice Objective Data Vital Signs Vital Signs: Vital Signs - 24
[2023-03-04] MEDS: cefTRIAXone 2 GM/NS 100 ML 2 GM/100 ML BAG IVPB (16:30)
[2023-03-04] MEDS: MELATONIN 5 MG TABLET 10 MG PO (20:13)
[2023-03-04 21:26] VITALS: BP 98/55; PULSE 77; RESP 18; TEMP 36.6; O2SAT 94
[2023-03-05] MEDS: MORPHINE SULFATE (*CRX) 2 MG/ML INJ IV PUSH ×4 (01:30→13:54)
[2023-03-05 06:00] VITALS: BP 101/61; PULSE 86; RESP 16; TEMP 36.3; O2SAT 95
[2023-03-05 06:14] LABS: Basophils Absolute Auto 0.1 K/mm3 (0.0-0.1); Basophils Percent Auto 0.3 % (0.2-1.2); Eosinophils Absolute Auto 0.1 K/mm3 (0-0.3); Eosinophils Percent Auto 0.3 % (0-4.4); Hematocrit 31.1 % (37.0-47.0); Hemoglobin 8.9 g/dL (12.0-15.0); Immature Granulocyte Absolute 0.64 K/mm3 (0.00-0.031); Immature Granulocyte Percent A 2.3 % (0-0.5); Lymphocytes Absolute Auto 2.96 K/mm3 (0.9-3.2); Lymphocytes Percent Auto 10.8 % (18.3-44.2); Mean Corpuscular HGB Conc 28.6 g/dl (32-36); Mean Corpuscular Hemoglobin 30.9 pg (26-34); Mean Platelet Volume 10.3 fl (7.4-10.4); Monocytes Absolute Auto 1.2 K/mm3 (0.1-0.6); Monocytes Percent Auto 4.3 % (2.6-8.5); Neutrophils Absolute Auto 22.5 K/mm3 (1.3-6.7); Platelet Count Result 379 k/mm3 (150-375); Red Blood Count 2.88 M/mm3 (4.2-5.4); Red Cell Distribution Width 19.3 % (11.5-14.5); White Blood Count 27.5 K/mm3 (4.5-10.0)
[2023-03-05 06:32] LABS: Alanine Aminotransferase 26 U/L (6-35); Albumin Level 3.3 g/dL (3.5-5.1); Alkaline Phosphatase 320 U/L (38-126); Anion Gap 8 mmol/L (8-16); Aspartate Amino Transferase 117 U/L (14-36); Bilirubin,Total 6.2 mg/dL (0.2-1.3); Blood Urea Nitrogen 10 mg/dL (7-17); Calcium 8.6 mg/dL (8.4-10.2); Carbon Dioxide 29 mmol/L (22-30); Chloride 100 mmol/L (98-107); Estimated CRCL calculation 100 ml/min; Estimated Glomerular Filt Rate > 60; Glucose 79 mg/dL (65-110); Potassium 4.3 mmol/L (3.4-5.0); Sodium 137 mmol/L (137-145)
[2023-03-05 06:36] LABS: Hypochromasia 1+ (NORMAL); Poikilocytosis 1+ (NORMAL)
[2023-03-05 06:37] LABS: Anisocytosis 1+ (NORMAL); Schistocytes Rare (NORMAL)
[2023-03-05] MEDS: cefTRIAXone 2 GM/NS 100 ML 2 GM/100 ML BAG IVPB (09:07)
[2023-03-05] MEDS: NICOTINE (*PBKC) 14 MG PATCH 1 PATCH TRANSDERM (09:07)
[2023-03-05] MEDS: MULTIVITAMINS THERAPEUTIC TAB (*BKC) 1 TABLET PO (09:08)
[2023-03-05] MEDS: FOLIC ACID 1 MG TABLET PO (09:08)
[2023-03-05] MEDS: FLUoxetine HCL 20 MG CAPSULE PO (09:08)
[2023-03-05] MEDS: SPIRONOLACTONE 50 MG TABLET 100 MG PO (09:08)
[2023-03-05] MEDS: THIAMINE HCL 100 MG TABLET PO (09:08)
[2023-03-05] MEDS: PANTOPRAZOLE 40 MG TABLET PO (09:08)
[2023-03-05] MEDS: FUROSEMIDE 40 MG TABLET PO (09:08)
[2023-03-05] MEDS: prednisoLONE ORAL SOLN 30 MG/10 ML SOLUTION 40 MG PO (09:09)
[2023-03-05 10:56] LABS: Toxigenic C. Diff POSITIVE (NEGATIVE)
--- NOTE | 2023-03-05 11:48 | PM.IMPN ---
Progress Note: A&P Assessment and Plan (1) Hypokalemia: Code(s): E87.6 - Hypokalemia Status: Acute (2) Sepsis: Qualifiers: Sepsis acute organ dysfunction status: unspecified Sepsis type: sepsis due to unspecified organism Qualified Code(s): A41.9 - Sepsis, unspecified organism Code(s): A41.9 - Sepsis, unspecified organism Status: Acute (3) UTI (urinary tract infection): Qualifiers: Hematuria presence: with hematuria Urinary tract infection type: acute cystitis Qualified Code(s): N30.01 - Acute cystitis with hematuria Code(s): N39.0 - Urinary tract infection, site not specified Status: Acute (4) Alcoholic cirrhosis of liver with ascites: Code(s): K70.31 - Alcoholic cirrhosis of liver with ascites Status: Acute (5) SBP (spontaneous bacterial peritonitis): Code(s): K65.2 - Spontaneous bacterial peritonitis Status: Acute Plan # decompensated alcohol cirrhosis # likely SBP -patient has alcohol cirrhosis diagnosed July 2022, history of alcohol abuse with most recent drink 1 week prior to hospitalization -patient has ascites with no history of paracentesis -diagnostic?paracentesis done, labs pending, gram stain negative - only 2.6L taken out. pt needs another therapeutic tap. albumin 25g/3L of fluid taken out needs to be done. 2nd gram stain/cx needed as well. ct rocephin until 2nd gram stain. - 2nd therapeutic tap scheduled for tomorrow. pre-procedural morphine 2mg added. give as much sedation as needed for fluid removal. -abdominal CT scan concerning for cirrhosis with portal hypertension -mildly elevated ammonia at 43, no altered mental status, patient has diarrhea hold off lactulose -has been managing with Lasix and Aldactone- need to increase to 100 mg aldactone, 40 mg lasix -antibiotics Zofran -pain control:? Tylenol norco morphine -Bennett discriminant function: 42.7 which is >32, continue glucocorticoids prednisolone 40mg daily 03/01- -MELD score 19: 6% 3 month mortality # alcohol hepatitis - ct prednisolone 40mg/day for alcoholic hepatitis -trend labs in a.m. for MELD - unclear if prednisolone is working. bilirubin is stable. recommend switching to pentoxyfilline and stopping steroid if wbc does not decrease # electrolyte disturbances - repleted - f/u repeat labs # left hepatic lobe enhancing lesion - had paracentesis - mri w/wo con for liver lesions - pending mri result # chronic conditions -GERD:? Omeprazole -depression: Fluoxetine -alcohol use disorder: Last drink a week ago, no signs of withdrawal. giving vitamins thiamine, folic acid, multivitamin - wants to start antabuse after dc. we do not have it here. Diet:??regular diet, low sodium preferably DVT prophylaxis:??SCDs, holding chemoprophylaxis for procedure Code status: Full code Disposition:?home >2 days Subjective Date/time seen: 03/05/23 11:48 Interval history: no complaints Exam Narrative: - GENERAL:? Thin jaundice woman in no acute distress, cirrhotic appearing - EYES: EOMI. icteric. - HENT: Moist mucous membranes. - LUNGS: Clear to auscultation bilaterally, no wheezing, rhonchi, or rales. - CARDIOVASCULAR: Regular rate and rhythm. No murmur. - ABDOMEN: Soft, distended, tender on palpation, +fluid wave - EXTREMITIES: No edema. Peripheral pulses 2+. Non-tender. - NEUROLOGIC: No focal neurological deficits. CN II-XII grossly intact. - PSYCHIATRIC: Awake, Alert and oriented x 3. Appropriate mood and affect. - SKIN: jaundice Objective Data Vital Signs Vital Signs: Vital Signs - 24 hr 03/04/23 14:00 03/04/23 21:26 03/04/23 20:00 Temperature 98.8 F 97.8 F Pulse Rate 84 77 Respiratory Rate 16 18 Blood Pressure 99/59 L 98/55 L Pulse Oximetry 92 94 Oxygen Delivery Room Air 03/05/23 06:00 03/05/23 09:00 Temperature 97.4 F L Pulse Rate 86 Respiratory Rate 16 Blood Pressure 101/61 Pulse Oximetry 95 Oxygen Delivery Suzanna
[2023-03-05] MEDS: HYDROcodone/acetaminophen (*CRX) 5-325 MG TABLET 1 TAB PO (17:21)
[2023-03-05] MEDS: ALBUMIN HUMAN 25% 12.5 GM/50ML 100 ML IVPB (17:22)
[2023-03-05] MEDS: VANCOMYCIN ORAL 125 MG/2.5 ML SYRUP PO (17:22)
--- NOTE | 2023-03-05 19:36 | PC.NURSE ---
Allie Contreras LPN provided care for this patient on 03/05/23. I have reviewed her assessments and agree with her charting.
[2023-03-05] MEDS: MELATONIN 5 MG TABLET 10 MG PO (20:21)
[2023-03-05 20:38] LABS: LDH Peritoneal Fluid 53 U/L (<63); Total Protein Peritoneal Fluid <3.0 g/dL
[2023-03-05 21:13] VITALS: BP 102/61; PULSE 85; RESP 18; TEMP 36.5; O2SAT 94
[2023-03-06] MEDS: VANCOMYCIN ORAL 125 MG/2.5 ML SYRUP PO ×4 (00:06→17:29)
[2023-03-06] MEDS: MORPHINE SULFATE (*CRX) 2 MG/ML INJ IV PUSH (00:10)
--- NOTE | 2023-03-06 00:16 | PC.NURSE ---
syringes of PO vanc found outside of refrigerator for unknown amount of time. called pharmacy who confirmed vancomycin is stable for 24 hours without refrigeration, and it is okay to give dose as scheduled since this medication was sent by pharmacy earlier in the same day (03/05/23)
[2023-03-06 05:14] VITALS: BP 101/65; PULSE 96; RESP 15; TEMP 36.6; O2SAT 94
[2023-03-06] MEDS: HYDROcodone/acetaminophen (*CRX) 5-325 MG TABLET 1 TAB PO ×3 (05:21→21:34)
[2023-03-06 06:30] LABS: Basophils Absolute Auto 0.1 K/mm3 (0.0-0.1); Basophils Percent Auto 0.3 % (0.2-1.2); Eosinophils Absolute Auto 0.1 K/mm3 (0-0.3); Eosinophils Percent Auto 0.5 % (0-4.4); Hematocrit 28.2 % (37.0-47.0); Hemoglobin 8.4 g/dL (12.0-15.0); Immature Granulocyte Absolute 0.34 K/mm3 (0.00-0.031); Immature Granulocyte Percent A 1.6 % (0-0.5); Lymphocytes Percent Auto 9.2 % (18.3-44.2); Mean Corpuscular HGB Conc 29.8 g/dl (32-36); Mean Corpuscular Hemoglobin 31.5 pg (26-34); Mean Corpuscular Volume 105.6 fl (80-100); Mean Platelet Volume 10.1 fl (7.4-10.4); Monocytes Absolute Auto 0.8 K/mm3 (0.1-0.6); Monocytes Percent Auto 3.7 % (2.6-8.5); Neutrophils Absolute Auto 18.4 K/mm3 (1.3-6.7); Neutrophils Percent Auto 84.7 % (45.5-73.1); Platelet Count Result 350 k/mm3 (150-375); Red Blood Count 2.67 M/mm3 (4.2-5.4); Red Cell Distribution Width 19.1 % (11.5-14.5); White Blood Count 21.7 K/mm3 (4.5-10.0)
[2023-03-06 06:41] LABS: Alanine Aminotransferase 27 U/L (6-35); Albumin Level 3.3 g/dL (3.5-5.1); Alkaline Phosphatase 285 U/L (38-126); Anion Gap 10 mmol/L (8-16); Aspartate Amino Transferase 96 U/L (14-36); Bilirubin,Total 5.6 mg/dL (0.2-1.3); Blood Urea Nitrogen 11 mg/dL (7-17); Calcium 8.7 mg/dL (8.4-10.2); Carbon Dioxide 29 mmol/L (22-30); Chloride 99 mmol/L (98-107); Estimated CRCL calculation 98 ml/min; Estimated Glomerular Filt Rate > 60; Glucose 129 mg/dL (65-110); Potassium 3.9 mmol/L (3.4-5.0); Sodium 138 mmol/L (137-145)
[2023-03-06 07:31] LABS: Anisocytosis 1+ (NORMAL); Hypochromasia 1+ (NORMAL); Microcytosis 1+ (NORMAL); Platelet Estimate Adequate (Adequate)
[2023-03-06 07:32] LABS: Schistocytes None Seen (NORMAL)
[2023-03-06] MEDS: prednisoLONE ORAL SOLN 30 MG/10 ML SOLUTION 40 MG PO (09:28)
[2023-03-06] MEDS: FUROSEMIDE 40 MG TABLET PO (09:29)
[2023-03-06] MEDS: FLUoxetine HCL 20 MG CAPSULE PO (09:29)
[2023-03-06] MEDS: SPIRONOLACTONE 50 MG TABLET 100 MG PO (09:29)
[2023-03-06] MEDS: THIAMINE HCL 100 MG TABLET PO (09:29)
[2023-03-06] MEDS: MULTIVITAMINS THERAPEUTIC TAB (*BKC) 1 TABLET PO (09:30)
[2023-03-06] MEDS: FOLIC ACID 1 MG TABLET PO (09:30)
[2023-03-06] MEDS: cefTRIAXone 2 GM/NS 100 ML 2 GM/100 ML BAG IVPB (09:30)
[2023-03-06] MEDS: PANTOPRAZOLE 40 MG TABLET PO (09:30)
[2023-03-06 09:39] LABS: Albumin Peritoneal Fluid 0.6 g/dL
[2023-03-06] MEDS: NICOTINE (*PBKC) 14 MG PATCH 1 PATCH TRANSDERM (10:14)
--- NOTE | 2023-03-06 10:45 | PM.IMPN ---
Progress Note: A&P Assessment and Plan (1) Hypokalemia: Code(s): E87.6 - Hypokalemia Status: Acute (2) Sepsis: Qualifiers: Sepsis acute organ dysfunction status: unspecified Sepsis type: sepsis due to unspecified organism Qualified Code(s): A41.9 - Sepsis, unspecified organism Code(s): A41.9 - Sepsis, unspecified organism Status: Acute (3) UTI (urinary tract infection): Qualifiers: Hematuria presence: with hematuria Urinary tract infection type: acute cystitis Qualified Code(s): N30.01 - Acute cystitis with hematuria Code(s): N39.0 - Urinary tract infection, site not specified Status: Acute (4) Alcoholic cirrhosis of liver with ascites: Code(s): K70.31 - Alcoholic cirrhosis of liver with ascites Status: Acute (5) SBP (spontaneous bacterial peritonitis): Code(s): K65.2 - Spontaneous bacterial peritonitis Status: Acute Plan # decompensated alcohol cirrhosis # likely SBP -patient has alcohol cirrhosis diagnosed July 2022, history of alcohol abuse with most recent drink 1 week prior to hospitalization -patient has ascites with no history of paracentesis -diagnostic?paracentesis done, labs pending, gram stain negative - only 2.6L taken out. pt needs another therapeutic tap. albumin 25g/3L of fluid taken out needs to be done. 2nd gram stain/cx needed as well. ct rocephin until 2nd gram stain. - 2nd therapeutic tap scheduled for tomorrow. pre-procedural morphine 2mg added. give as much sedation as needed for fluid removal. -abdominal CT scan concerning for cirrhosis with portal hypertension -mildly elevated ammonia at 43, no altered mental status, patient has diarrhea hold off lactulose -has been managing with Lasix and Aldactone- need to increase to 100 mg aldactone, 40 mg lasix -antibiotics Zofran -pain control:? Tylenol norco morphine -Bennett discriminant function: 42.7 which is >32, continue glucocorticoids prednisolone 40mg daily 03/01- -MELD score 19: 6% 3 month mortality # alcohol hepatitis - ct prednisolone 40mg/day for alcoholic hepatitis -trend labs in a.m. for MELD - unclear if prednisolone is working. bilirubin is stable. recommend switching to pentoxyfilline and stopping steroid if wbc does not decrease, wbc now improving # electrolyte disturbances - repleted - f/u repeat labs # left hepatic lobe enhancing lesion - had paracentesis - mri w/wo con for liver lesions - pending mri result # chronic conditions -GERD:? Omeprazole -depression: Fluoxetine -alcohol use disorder: Last drink a week ago, no signs of withdrawal. giving vitamins thiamine, folic acid, multivitamin - wants to start antabuse after dc. we do not have it here. C diff - oral vanc Diet:??regular diet, low sodium preferably DVT prophylaxis:??SCDs, holding chemoprophylaxis for procedure Code status: Full code Disposition:?home >2 days Subjective Date/time seen: 03/06/23 10:45 Interval history: no complaints Exam Narrative: - GENERAL:? Thin jaundice woman in no acute distress, cirrhotic appearing - EYES: EOMI. icteric. - HENT: Moist mucous membranes. - LUNGS: Clear to auscultation bilaterally, no wheezing, rhonchi, or rales. - CARDIOVASCULAR: Regular rate and rhythm. No murmur. - ABDOMEN: Soft, distended, tender on palpation, +fluid wave - EXTREMITIES: No edema. Peripheral pulses 2+. Non-tender. - NEUROLOGIC: No focal neurological deficits. CN II-XII grossly intact. - PSYCHIATRIC: Awake, Alert and oriented x 3. Appropriate mood and affect. - SKIN: jaundice Objective Data Vital Signs Vital Signs: Vital Signs - 24 hr 03/05/23 21:13 03/05/23 20:00 03/06/23 05:14 Temperature 97.7 F 97.8 F Pulse Rate 85 96 Respiratory Rate 18 15 Blood Pressure 102/61 101/65 Pulse Oximetry 94 94 Oxygen Delivery Room Air Intake/Output Intake/Output: Intake & Output 03/03/23 03/04/23 03/05/23 03/06/23 23:59 23:59 23:59 23:59 Int
[2023-03-06 13:54] VITALS: BP 92/59; PULSE 84; RESP 18; TEMP 36.1; O2SAT 98
[2023-03-06] MEDS: MELATONIN 5 MG TABLET 10 MG PO (20:49)
[2023-03-06 22:00] VITALS: BP 114/76; PULSE 92; RESP 14; TEMP 36.3; O2SAT 100
[2023-03-07] MEDS: VANCOMYCIN ORAL 125 MG/2.5 ML SYRUP PO ×4 (00:46→17:18)
[2023-03-07] MEDS: HYDROcodone/acetaminophen (*CRX) 5-325 MG TABLET 1 TAB PO ×3 (04:56→21:53)
[2023-03-07 06:00] VITALS: BP 122/77; PULSE 92; RESP 14; TEMP 36.2; O2SAT 100
[2023-03-07 06:43] LABS: Basophils Absolute Auto 0.1 K/mm3 (0.0-0.1); Basophils Percent Auto 0.3 % (0.2-1.2); Eosinophils Absolute Auto 0.1 K/mm3 (0-0.3); Eosinophils Percent Auto 0.7 % (0-4.4); Hematocrit 25.3 % (37.0-47.0); Hemoglobin 7.5 g/dL (12.0-15.0); Immature Granulocyte Absolute 0.26 K/mm3 (0.00-0.031); Immature Granulocyte Percent A 1.3 % (0-0.5); Lymphocytes Absolute Auto 1.82 K/mm3 (0.9-3.2); Lymphocytes Percent Auto 9.4 % (18.3-44.2); Mean Corpuscular HGB Conc 29.6 g/dl (32-36); Mean Corpuscular Hemoglobin 32.1 pg (26-34); Mean Corpuscular Volume 108.1 fl (80-100); Mean Platelet Volume 10.4 fl (7.4-10.4); Monocytes Absolute Auto 1.1 K/mm3 (0.1-0.6); Monocytes Percent Auto 5.5 % (2.6-8.5); Neutrophils Percent Auto 82.8 % (45.5-73.1); Platelet Count Result 330 k/mm3 (150-375); Red Blood Count 2.34 M/mm3 (4.2-5.4); White Blood Count 19.3 K/mm3 (4.5-10.0)
[2023-03-07 06:57] LABS: Alanine Aminotransferase 28 U/L (6-35); Albumin Level 2.9 g/dL (3.5-5.1); Alkaline Phosphatase 296 U/L (38-126); Anion Gap 7 mmol/L (8-16); Aspartate Amino Transferase 101 U/L (14-36); Bilirubin,Total 4.6 mg/dL (0.2-1.3); Blood Urea Nitrogen 13 mg/dL (7-17); Calcium 8.4 mg/dL (8.4-10.2); Carbon Dioxide 29 mmol/L (22-30); Chloride 101 mmol/L (98-107); Estimated CRCL calculation 100 ml/min; Estimated Glomerular Filt Rate > 60; Glucose 117 mg/dL (65-110); Potassium 3.6 mmol/L (3.4-5.0); Sodium 137 mmol/L (137-145)
[2023-03-07 07:13] LABS: Anisocytosis 2+ (NORMAL); Hypochromasia 2+ (NORMAL)
[2023-03-07 07:14] LABS: Platelet Estimate Adequate (Adequate); Schistocytes None Seen (NORMAL)
[2023-03-07] MEDS: MULTIVITAMINS THERAPEUTIC TAB (*BKC) 1 TABLET PO (10:04)
[2023-03-07] MEDS: FLUoxetine HCL 20 MG CAPSULE PO (10:04)
[2023-03-07] MEDS: FUROSEMIDE 40 MG TABLET PO (10:04)
[2023-03-07] MEDS: SPIRONOLACTONE 50 MG TABLET 100 MG PO (10:04)
[2023-03-07] MEDS: THIAMINE HCL 100 MG TABLET PO (10:05)
[2023-03-07] MEDS: PANTOPRAZOLE 40 MG TABLET PO (10:05)
[2023-03-07] MEDS: FOLIC ACID 1 MG TABLET PO (10:05)
[2023-03-07] MEDS: prednisoLONE ORAL SOLN 30 MG/10 ML SOLUTION 40 MG PO (10:05)
[2023-03-07] MEDS: cefTRIAXone 2 GM/NS 100 ML 2 GM/100 ML BAG IVPB (10:07)
[2023-03-07] MEDS: NICOTINE (*PBKC) 14 MG PATCH 1 PATCH TRANSDERM (10:22)
--- NOTE | 2023-03-07 11:29 | PM.IMPN ---
Progress Note: A&P Assessment and Plan (1) Hypokalemia: Code(s): E87.6 - Hypokalemia Status: Acute (2) Sepsis: Qualifiers: Sepsis acute organ dysfunction status: unspecified Sepsis type: sepsis due to unspecified organism Qualified Code(s): A41.9 - Sepsis, unspecified organism Code(s): A41.9 - Sepsis, unspecified organism Status: Acute (3) UTI (urinary tract infection): Qualifiers: Hematuria presence: with hematuria Urinary tract infection type: acute cystitis Qualified Code(s): N30.01 - Acute cystitis with hematuria Code(s): N39.0 - Urinary tract infection, site not specified Status: Acute (4) Alcoholic cirrhosis of liver with ascites: Code(s): K70.31 - Alcoholic cirrhosis of liver with ascites Status: Acute (5) SBP (spontaneous bacterial peritonitis): Code(s): K65.2 - Spontaneous bacterial peritonitis Status: Acute Plan # decompensated alcohol cirrhosis # likely SBP -patient has alcohol cirrhosis diagnosed July 2022, history of alcohol abuse with most recent drink 1 week prior to hospitalization -patient has ascites with no history of paracentesis -diagnostic?paracentesis done, labs pending, gram stain negative - only 2.6L taken out. pt needs another therapeutic tap. albumin 25g/3L of fluid taken out needs to be done. 2nd gram stain/cx needed as well. ct rocephin until 2nd gram stain. - 2nd therapeutic tap scheduled for tomorrow. pre-procedural morphine 2mg added. give as much sedation as needed for fluid removal. -abdominal CT scan concerning for cirrhosis with portal hypertension -mildly elevated ammonia at 43, no altered mental status, patient has diarrhea hold off lactulose -has been managing with Lasix and Aldactone- need to increase to 100 mg aldactone, 40 mg lasix -antibiotics Zofran -pain control:? Tylenol norco morphine -Bennett discriminant function: 42.7 which is >32, continue glucocorticoids prednisolone 40mg daily 03/01- -MELD score 19: 6% 3 month mortality # alcohol hepatitis - ct prednisolone 40mg/day for alcoholic hepatitis -trend labs in a.m. for MELD - unclear if prednisolone is working. bilirubin is stable. recommend switching to pentoxyfilline and stopping steroid if wbc does not decrease, wbc now improving # electrolyte disturbances - repleted - f/u repeat labs # left hepatic lobe enhancing lesion - had paracentesis - mri w/wo con for liver lesions - pending mri result # chronic conditions -GERD:? Omeprazole -depression: Fluoxetine -alcohol use disorder: Last drink a week ago, no signs of withdrawal. giving vitamins thiamine, folic acid, multivitamin - wants to start antabuse after dc. we do not have it here. C diff - oral vanc Diet:??regular diet, low sodium preferably DVT prophylaxis:??SCDs, holding chemoprophylaxis for procedure Code status: Full code Disposition:?home >2 days Subjective Date/time seen: 03/07/23 11:29 Interval history: no new complaints Exam Narrative: - GENERAL:? Thin jaundice woman in no acute distress, cirrhotic appearing - EYES: EOMI. icteric. - HENT: Moist mucous membranes. - LUNGS: Clear to auscultation bilaterally, no wheezing, rhonchi, or rales. - CARDIOVASCULAR: Regular rate and rhythm. No murmur. - ABDOMEN: Soft, distended, tender on palpation, +fluid wave - EXTREMITIES: No edema. Peripheral pulses 2+. Non-tender. - NEUROLOGIC: No focal neurological deficits. CN II-XII grossly intact. - PSYCHIATRIC: Awake, Alert and oriented x 3. Appropriate mood and affect. - SKIN: jaundice Objective Data Vital Signs Vital Signs: Vital Signs - 24 hr 03/06/23 13:54 03/06/23 19:50 03/06/23 22:00 Temperature 97.0 F L 97.3 F L Pulse Rate 84 92 Respiratory Rate 18 14 Blood Pressure 92/59 L 114/76 Pulse Oximetry 98 100 Oxygen Delivery Room Air 03/07/23 06:00 Temperature 97.1 F L Pulse Rate 92 Respiratory Rate 14 Blood Pressure 122/77 Pulse Oxime
[2023-03-07 14:00] VITALS: BP 118/61; PULSE 88; RESP 16; TEMP 36; O2SAT 99
[2023-03-07] MEDS: MORPHINE SULFATE (*CRX) 2 MG/ML INJ IV PUSH (14:08)
[2023-03-07 19:55] VITALS: O2SAT 100
[2023-03-07 21:32] VITALS: BP 122/73; PULSE 85; RESP 13; TEMP 36.4; O2SAT 100
[2023-03-07] MEDS: MELATONIN 5 MG TABLET 10 MG PO (21:53)
[2023-03-08 00:17] VITALS: O2SAT 99
[2023-03-08] MEDS: VANCOMYCIN ORAL 125 MG/2.5 ML SYRUP PO ×3 (00:25→13:55)
[2023-03-08 05:36] VITALS: BP 107/54; PULSE 89; RESP 14; TEMP 36.2; O2SAT 99
[2023-03-08 07:24] LABS: Basophils Absolute Auto 0.1 K/mm3 (0.0-0.1); Basophils Percent Auto 0.4 % (0.2-1.2); Eosinophils Absolute Auto 0.2 K/mm3 (0-0.3); Eosinophils Percent Auto 0.8 % (0-4.4); Hematocrit 26.2 % (37.0-47.0); Hemoglobin 7.9 g/dL (12.0-15.0); Immature Granulocyte Percent A 1.5 % (0-0.5); Lymphocytes Absolute Auto 2.26 K/mm3 (0.9-3.2); Lymphocytes Percent Auto 11.4 % (18.3-44.2); Mean Corpuscular HGB Conc 30.2 g/dl (32-36); Mean Corpuscular Hemoglobin 31.9 pg (26-34); Mean Corpuscular Volume 105.6 fl (80-100); Mean Platelet Volume 10.5 fl (7.4-10.4); Monocytes Percent Auto 4.9 % (2.6-8.5); Neutrophils Absolute Auto 16.2 K/mm3 (1.3-6.7); Platelet Count Result 341 k/mm3 (150-375); Red Blood Count 2.48 M/mm3 (4.2-5.4); Red Cell Distribution Width 18.6 % (11.5-14.5); White Blood Count 19.9 K/mm3 (4.5-10.0)
[2023-03-08 07:41] LABS: Alanine Aminotransferase 34 U/L (6-35); Albumin Level 2.9 g/dL (3.5-5.1); Alkaline Phosphatase 252 U/L (38-126); Anion Gap 5 mmol/L (8-16); Aspartate Amino Transferase 118 U/L (14-36); Bilirubin,Total 4.5 mg/dL (0.2-1.3); Blood Urea Nitrogen 14 mg/dL (7-17); Calcium 8.4 mg/dL (8.4-10.2); Carbon Dioxide 31 mmol/L (22-30); Chloride 99 mmol/L (98-107); Estimated CRCL calculation 117 ml/min; Estimated Glomerular Filt Rate > 60; Glucose 80 mg/dL (65-110); Potassium 4.3 mmol/L (3.4-5.0); Sodium 135 mmol/L (137-145)
[2023-03-08 07:57] LABS: Platelet Estimate Adequate (Adequate)
[2023-03-08 07:58] LABS: Anisocytosis 1+ (NORMAL); Hypochromasia 2+ (NORMAL); Microcytosis 1+ (NORMAL); Schistocytes Rare (NORMAL)
[2023-03-08] MEDS: prednisoLONE ORAL SOLN 30 MG/10 ML SOLUTION 40 MG PO (08:22)
[2023-03-08] MEDS: SPIRONOLACTONE 50 MG TABLET 100 MG PO (08:23)
[2023-03-08] MEDS: HYDROcodone/acetaminophen (*CRX) 5-325 MG TABLET 1 TAB PO ×2 (08:23→13:55)
[2023-03-08] MEDS: THIAMINE HCL 100 MG TABLET PO (08:23)
[2023-03-08] MEDS: FLUoxetine HCL 20 MG CAPSULE PO (08:23)
[2023-03-08] MEDS: FOLIC ACID 1 MG TABLET PO (08:23)
[2023-03-08] MEDS: MULTIVITAMINS THERAPEUTIC TAB (*BKC) 1 TABLET PO (08:23)
[2023-03-08] MEDS: PANTOPRAZOLE 40 MG TABLET PO (08:23)
[2023-03-08] MEDS: FUROSEMIDE 40 MG TABLET PO (08:23)
[2023-03-08] MEDS: NICOTINE (*PBKC) 14 MG PATCH 1 PATCH TRANSDERM (08:25)
--- NOTE | 2023-03-08 12:08 | PM.DS ---
DS: Admitting Diagnosis Discharge Date March 08, 2023 Admitting Diagnosis UTI, acute liver injury, alcohol abuse DS: Discharge Diagnosis Discharge Diagnosis (1) Hypokalemia: Code(s): E87.6 - Hypokalemia Status: Acute (2) Sepsis: Qualifiers: Sepsis acute organ dysfunction status: unspecified Sepsis type: sepsis due to unspecified organism Qualified Code(s): A41.9 - Sepsis, unspecified organism Code(s): A41.9 - Sepsis, unspecified organism Status: Acute (3) UTI (urinary tract infection): Qualifiers: Hematuria presence: with hematuria Urinary tract infection type: acute cystitis Qualified Code(s): N30.01 - Acute cystitis with hematuria Code(s): N39.0 - Urinary tract infection, site not specified Status: Acute (4) Alcoholic cirrhosis of liver with ascites: Code(s): K70.31 - Alcoholic cirrhosis of liver with ascites Status: Acute (5) SBP (spontaneous bacterial peritonitis): Code(s): K65.2 - Spontaneous bacterial peritonitis Status: Acute Plan # decompensated alcohol cirrhosis # likely SBP -patient has alcohol cirrhosis diagnosed July 2022, history of alcohol abuse with most recent drink 1 week prior to hospitalization -patient has ascites with no history of paracentesis -diagnostic?paracentesis done, labs pending, gram stain negative - only 2.6L taken out. pt needs another therapeutic tap. albumin 25g/3L of fluid taken out needs to be done. 2nd gram stain/cx needed as well. ct rocephin until 2nd gram stain. - 2nd therapeutic tap scheduled for tomorrow. pre-procedural morphine 2mg added. give as much sedation as needed for fluid removal. -abdominal CT scan concerning for cirrhosis with portal hypertension -mildly elevated ammonia at 43, no altered mental status, patient has diarrhea hold off lactulose -has been managing with Lasix and Aldactone- need to increase to 100 mg aldactone, 40 mg lasix -antibiotics Zofran -pain control:? Tylenol norco morphine -Bennett discriminant function: 42.7 which is >32, continue glucocorticoids prednisolone 40mg daily 03/01- -MELD score 19: 6% 3 month mortality # alcohol hepatitis - ct prednisolone 40mg/day for alcoholic hepatitis -trend labs in a.m. for MELD - unclear if prednisolone is working. bilirubin is stable. recommend switching to pentoxyfilline and stopping steroid if wbc does not decrease, wbc now improving # electrolyte disturbances - repleted - f/u repeat labs # left hepatic lobe enhancing lesion - had paracentesis - mri w/wo con for liver lesions - pending mri result # chronic conditions -GERD:? Omeprazole -depression: Fluoxetine -alcohol use disorder: Last drink a week ago, no signs of withdrawal. giving vitamins thiamine, folic acid, multivitamin - wants to start antabuse after dc. we do not have it here. C diff - oral vanc Diet:??regular diet, low sodium preferably DVT prophylaxis:??SCDs, holding chemoprophylaxis for procedure Code status: Full code Disposition:?home >2 days DS: Summary Hospital Course Hospital Course: Patient was admitted with acute liver history secondary to alcohol abuse. She was also found have a history of cirrhosis. She had ascites on admission had paracentesis which did heal questionable SBP. Patient was treated with antibiotics. She was also treated with antibiotics for UTI. Antibiotics were discontinued has she completed course. However she was also noted to have C diff infection and will be discharged on oral vancomycin. Diarrhea has resolved, tolerating diet. Liver functions are improving. She will need to follow up primary care physician on discharge. Time Spent with Patient Time attestation: Total time spent providing and/or coordinating discharge services: Exam Narrative: - GENERAL:? Thin jaundice woman in no acute distress, cirrhotic appearing - EYES: EOMI. icteric. - HENT: Moist mucous membranes. - LUNGS: Clear to auscultat
== END 2023-03-08 14:30 | disposition home or self-care (01) | DRG 248 ==
LOC: ANHED 03-01 07:30 → ANH3MEDSUR 03-01 08:26
PROVIDERS: Internal Medicine; Physician Assistant; Admitting Provider Student in an Organized Health Care Education/Training Program; Emergency Provider Preventive Medicine Aerospace Medicine; PCP Internal Medicine Gastroenterology; Visit Provider Chiropractor
DX: K65.2 Spontaneous bacterial peritonitis (principal); K70.40 Alcoholic hepatic failure without coma; A04.72 Enterocolitis due to Clostridium difficile, not specified as recurrent; K70.31 Alcoholic cirrhosis of liver with ascites; K70.11 Alcoholic hepatitis with ascites; N39.0 Urinary tract infection, site not specified; E87.6 Hypokalemia; K21.9 Gastro-esophageal reflux disease without esophagitis; F41.9 Anxiety disorder, unspecified; F32.A Depression, unspecified; F17.210 Nicotine dependence, cigarettes, uncomplicated; Z20.822 Contact with and (suspected) exposure to COVID-19
CPT/HCPCS: 36415; 49083; 71046; 74177; 74183; 76705; 80048; 80053; 80074; 80076; 81001; 81025; 82040; 82042; 82140; 83605; 83615; 83690; 83735; 84100; 84157; 85025; 85610; 85730; 87040; 87070; 87075; 87205; 87493; 87636; 89051; 93005; 96361; 96365; 96366; 96367; 96375; 96376; 99285; A9270; A9577; C1729; G0378; G0379; J0696; J2270; J2405; J3475; J3480; J7030; J7040; P9047; Q9967

== ENCOUNTER 2023-04-23 08:50 | Inpatient (IN) | payer OTHER, SELFPAY ==
[2023-04-23] VITALS (18 sets, daily range): BP systolic 90–137; BP diastolic 49–84; PULSE 98–133; RESP 12–23; TEMP 36.2–37.7; O2SAT 86–100; BMI 25.8
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
--- NOTE | ~2023-04-23 | US_ITS ---
EXAMINATION: US paracentesis abd w/image DATE: 04/25/2023 13:57 INDICATION: Ascites. TECHNIQUE: The procedure and its risks and benefits were discussed with the patient. Potential risks discussed included bleeding and infection. The skin was prepped and draped in sterile fashion. 1% lid ocaine was used for local anesthesia. Under ultrasound guidance, a 5 Fr catheter with trochar was adv anced into the ascites in the right lower quadrant. Fluid was aspirated into vacuum bottles. The cath eter was removed, and a dressing was applied. There were no immediate complications. FINDINGS: Ultrasound images demonstrate ascites and the catheter within the fluid. IMPRESSION: 1. Successful ultrasound-guided paracentesis yielding 4000 mL of yellow fluid. Reviewed, dictated and finalized at location A. DER OPERATOR
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
--- NOTE | ~2023-04-23 | US_ITS ---
EXAMINATION: US renal BI DATE: 04/29/2023 16:22 INDICATION: Anuria. TECHNIQUE: Multiple ultrasound grayscale images of the kidneys were obtained. COMPARISON: CT abdomen and pelvis 03/01/2023 FINDINGS: The right kidney measures 12.2 x 3.9 x 4.8 cm. The left kidney measures 9.7 x 5.0 x 5.7 cm. The kidne ys demonstrate normal parenchymal echogenicity. There is no hydronephrosis. The bladder is decompress ed by a Hensley catheter. There is a moderate volume of ascites. IMPRESSION: 1. Normal kidneys. No hydronephrosis. 2. Moderate volume of ascites. Reviewed, dictated and finalized at location A. LE BUFFER
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
--- NOTE | ~2023-04-23 | XR_ITS ---
EXAMINATION: XR chest 2V 04/23/2023 10:34 INDICATION: Chest wall pain PROCEDURE: 2 view chest COMPARISON: 02/28/2023 FINDINGS: The lungs are clear. The cardiomediastinal silhouette is within normal limits. There are no pleural effusions. There is no pneumothorax suspected. IMPRESSION: 1: NO ACUTE CARDIOPULMONARY DISEASE. Reviewed, dictated and finalized at location B. HAND PLATE MILL
--- NOTE | 2023-04-23 09:32 | ECG_ITS ---
Measurements Intervals [place] Rate: 126 P: 83 UT: 153 QRS: 20 QRSD: 92 T: 75 QT: 355 QTc: 514 Interpretive Statements SINUS TACHYCARDIA DELAYED PRECORDIAL R/S TRANSITION BORDERLINE T WAVE ABNORMALITY- HIGH LATERAL LEADS BASELINE ARTIFACT- I, III, AVL ABNORMAL ECG NO PREVIOUS ECG AVAILABLE FOR COMPARISON Electronically Signed On 04-23-2023 19:55:42 [employer] by Earnest Vitale D.O.
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
[2023-04-23 09:39] LABS: Basophils Absolute Auto 0.1 K/mm3 (0.0-0.1); Basophils Percent Auto 0.8 % (0.2-1.2); Eosinophils Absolute Auto 0.2 K/mm3 (0-0.3); Eosinophils Percent Auto 1.2 % (0-4.4); Hematocrit 26.2 % (37.0-47.0); Hemoglobin 7.8 g/dL (12.0-15.0); Immature Granulocyte Absolute 0.06 K/mm3 (0.00-0.031); Immature Granulocyte Percent A 0.4 % (0-0.5); Lymphocytes Absolute Auto 1.72 K/mm3 (0.9-3.2); Lymphocytes Percent Auto 12.7 % (18.3-44.2); Mean Corpuscular HGB Conc 29.8 g/dl (32-36); Mean Corpuscular Hemoglobin 28.3 pg (26-34); Mean Corpuscular Volume 94.9 fl (80-100); Mean Platelet Volume 10.1 fl (7.4-10.4); Monocytes Absolute Auto 1.4 K/mm3 (0.1-0.6); Monocytes Percent Auto 9.9 % (2.6-8.5); Neutrophils Absolute Auto 10.2 K/mm3 (1.3-6.7); Platelet Count Result 246 k/mm3 (150-375); Red Blood Count 2.76 M/mm3 (4.2-5.4); Red Cell Distribution Width 19.6 % (11.5-14.5); White Blood Count 13.6 K/mm3 (4.5-10.0)
[2023-04-23 09:59] LABS: Platelet Estimate Adequate (Adequate); Poikilocytosis 2+ (NORMAL)
[2023-04-23] MEDS: SODIUM CHLORIDE 0.9% IV 1,000 ML 999 ML IV CONT ×2 (09:59→10:00)
[2023-04-23] MEDS: LORazepam INJ (*CRX) 2 MG/ML VIAL IV PUSH (09:59)
[2023-04-23 10:00] LABS: Hypochromasia 1+ (NORMAL); Schistocytes Rare (NORMAL); Tear Drop Cells 1+ (NORMAL)
[2023-04-23 10:03] LABS: Alanine Aminotransferase 29 U/L (6-35); Alkaline Phosphatase 398 U/L (38-126); Anion Gap 12 mmol/L (8-16); Aspartate Amino Transferase 153 U/L (14-36); Bilirubin,Total 6.6 mg/dL (0.2-1.3); Blood Urea Nitrogen 12 mg/dL (7-17); Calcium 9.3 mg/dL (8.4-10.2); Carbon Dioxide 37 mmol/L (22-30); Chloride 90 mmol/L (98-107); Estimated Glomerular Filt Rate > 60; Glucose 133 mg/dL (65-110); Lipase 14 U/L (23-300); Potassium 2.3 mmol/L (3.4-5.0); Sodium 139 mmol/L (137-145)
[2023-04-23 10:11] LABS: Lactic Acid Reflex 1.8 mmol/L (0.7-2.0)
[2023-04-23] MEDS: KCL 20 MEQ/SW 100 ML 100 ML 50 MEQ IVPB ×2 (10:56→22:26)
[2023-04-23] MEDS: POTASSIUM CHLORIDE 20 MEQ PACKET (FOR LIQUID) 40 MEQ PO (10:56)
[2023-04-23] MEDS: ONDANSETRON INJ 4 MG/2 ML VIAL IV PUSH (11:17)
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
[2023-04-23] MEDS: PANTOPRAZOLE SODIUM IV 40 MG VIAL 80 MG IV PUSH (14:21)
[2023-04-23 14:53] LABS: Ethanol < 10 mg/dL (<10); INR 1.5; Partial Thromboplastin Time 45.5 SECONDS (22.3-36.8); Prothrombin Time 19.1 Seconds (11.1-14.7)
[2023-04-23 14:57] LABS: Anion Gap 7 mmol/L (8-16); Blood Urea Nitrogen 9 mg/dL (7-17); Calcium 8.2 mg/dL (8.4-10.2); Carbon Dioxide 36 mmol/L (22-30); Chloride 94 mmol/L (98-107); Estimated Glomerular Filt Rate > 60; Glucose 107 mg/dL (65-110); Magnesium 1.4 mg/dL (1.6-2.3); Potassium 2.6 mmol/L (3.4-5.0); Sodium 137 mmol/L (137-145)
[2023-04-23] MEDS: SODIUM CHLORIDE 0.9% IV 1,000 ML 125 ML IV CONT (17:10)
[2023-04-23] MEDS: POTASSIUM CHLORIDE INJ 40 MEQ in SODIUM CHLORIDE 0.9% IV 500 ML 130 MEQ IVPB (17:11)
[2023-04-23] MEDS: chlordiazePOXIDE (*CRX) 25 MG CAPSULE 50 MG PO ×2 (17:19→23:12)
[2023-04-23] MEDS: CALCIUM GLUC 1,000 MG/NS 50 ML 1,000 MG/50 ML BAG 100 MG IVPB (17:49)
--- NOTE | 2023-04-23 17:52 | ADMGEN ---
This patient, Karina Beasley, was admitted to IMU Room 205-01. Patient/family oriented to hospital policies and general routines including ID bracelet, bed and alarms, visiting hours, pain management, procedures, bathroom and other care routines, personal items, smoking policy, room service/diet, and visiting hours. Information on how to activate the Rapid Response Team has been discussed. Patient/Family are encouraged to report perceived risks to care and to ask questions if they do not understand what they are told or what they should do.
[2023-04-23 18:16] LABS: Glucose Point of Care 83 mg/dl (65-105)
--- NOTE | 2023-04-23 19:55 | PC.NURSE ---
Patient stated she attempted suicide 11 years ago and sought help. Patient no longer has suicide ideations.
[2023-04-23 20:07] LABS: Mean Corpuscular HGB Conc 29.4 g/dl (32-36); Mean Corpuscular Volume 95.3 fl (80-100); Mean Platelet Volume 10.1 fl (7.4-10.4); Platelet Count Result 143 k/mm3 (150-375); Red Blood Count 2.11 M/mm3 (4.2-5.4); White Blood Count 7.9 K/mm3 (4.5-10.0)
[2023-04-23 20:09] LABS: Hematocrit 20.1 % (37.0-47.0); Hemoglobin 5.9 g/dL (12.0-15.0)
[2023-04-23 20:20] LABS: Ammonia 37 umol/L (9-30)
[2023-04-23 20:40] LABS: Alanine Aminotransferase 22 U/L (6-35); Alkaline Phosphatase 285 U/L (38-126); Anion Gap 10 mmol/L (8-16); Aspartate Amino Transferase 110 U/L (14-36); Bilirubin,Total 5.2 mg/dL (0.2-1.3); Blood Urea Nitrogen 10 mg/dL (7-17); Calcium 8.3 mg/dL (8.4-10.2); Carbon Dioxide 31 mmol/L (22-30); Chloride 95 mmol/L (98-107); Creatine Kinase 119 U/L (30-135); Estimated CRCL calculation 133 ml/min; Estimated Glomerular Filt Rate > 60; Glucose 86 mg/dL (65-110); Potassium 2.7 mmol/L (3.4-5.0); Sodium 136 mmol/L (137-145)
[2023-04-23 20:52] LABS: Iron 72 ug/dL (37-170)
[2023-04-23 21:01] LABS: Percent Iron Saturation 39 % (20-50)
[2023-04-23 21:02] LABS: Bacteria Urine None Seen /hpf; Need Manual Microscopic Reviewed; Non Pathogenic Casts 0-2; RBC Urine 0-2 /hpf (0-2); Squamous Epithelial Cell Urine None seen /hpf (Few); WBC Urine 0-5 /hpf
[2023-04-23] MEDS: MORPHINE SULFATE (*CRX) 2 MG/ML INJ IV PUSH (21:02)
[2023-04-23 21:03] LABS: Appearance Urine Clear (Clear); Color Urine Dark Amber (Yellow); pH Urine 8.5 (5.0-9.0)
[2023-04-23] MEDS: MAGNESIUM SULF 1 GM/D5W 100 ML 1 GM/100 ML BAG IVPB (21:03)
[2023-04-23 21:04] LABS: Add Urine Microscopic? YES; Bilirubin Urine 2+ (Negative); Blood Urine Negative (Negative); Glucose Urine UA Negative (Negative); Ketones Urine 1+ mg/dL (Negative); Leukocyte Esterase Ur Trace LEU/UL (Negative); Nitrate Urine Negative (Negative); Protein Urine 1+ mg/dL (Negative); Specific Grav Ur 1.082 (1.001-1.035)
[2023-04-23 22:01] LABS: Folic Acid 12.4 ng/mL (2.76->20)
[2023-04-23] MEDS: SODIUM CHLORIDE 0.9% IV 250 ML 30 ML IV CONT (22:56)
[2023-04-23 23:32] LABS: Glucose Point of Care 83 mg/dl (65-105)
[2023-04-24] VITALS (27 sets, daily range): BP systolic 99–122; BP diastolic 58–80; PULSE 94–111; RESP 16–22; TEMP 36.1–37; O2SAT 92–100
[2023-04-24] MEDS: MORPHINE SULFATE (*CRX) 2 MG/ML INJ IV PUSH ×4 (02:07→21:49)
[2023-04-24 05:33] LABS: Basophils Absolute Auto 0.1 K/mm3 (0.0-0.1); Basophils Percent Auto 0.9 % (0.2-1.2); Eosinophils Absolute Auto 0.1 K/mm3 (0-0.3); Eosinophils Percent Auto 1.5 % (0-4.4); Hematocrit 28.9 % (37.0-47.0); Hemoglobin 8.7 g/dL (12.0-15.0); Immature Granulocyte Absolute 0.04 K/mm3 (0.00-0.031); Immature Granulocyte Percent A 0.5 % (0-0.5); Lymphocytes Percent Auto 22.7 % (18.3-44.2); Mean Corpuscular HGB Conc 30.1 g/dl (32-36); Mean Corpuscular Hemoglobin 28.2 pg (26-34); Mean Corpuscular Volume 93.5 fl (80-100); Mean Platelet Volume 10.4 fl (7.4-10.4); Monocytes Absolute Auto 0.6 K/mm3 (0.1-0.6); Monocytes Percent Auto 7.2 % (2.6-8.5); Neutrophils Absolute Auto 5.9 K/mm3 (1.3-6.7); Neutrophils Percent Auto 67.2 % (45.5-73.1); Platelet Count Result 136 k/mm3 (150-375); Red Blood Count 3.09 M/mm3 (4.2-5.4); Red Cell Distribution Width 19.3 % (11.5-14.5); White Blood Count 8.8 K/mm3 (4.5-10.0)
[2023-04-24 05:43] LABS: Alanine Aminotransferase 21 U/L (6-35); Alkaline Phosphatase 294 U/L (38-126); Anion Gap 7 mmol/L (8-16); Aspartate Amino Transferase 104 U/L (14-36); Bilirubin,Total 5.8 mg/dL (0.2-1.3); Blood Urea Nitrogen 6 mg/dL (7-17); Calcium 8.1 mg/dL (8.4-10.2); Carbon Dioxide 31 mmol/L (22-30); Chloride 98 mmol/L (98-107); Estimated CRCL calculation 109 ml/min; Estimated Glomerular Filt Rate > 60; Glucose 63 mg/dL (65-110); Magnesium 1.8 mg/dL (1.6-2.3); Phosphorus 3.2 mg/dL (2.5-4.5); Potassium 3.1 mmol/L (3.4-5.0); Sodium 136 mmol/L (137-145)
[2023-04-24] MEDS: chlordiazePOXIDE (*CRX) 25 MG CAPSULE 50 MG PO ×2 (06:45→12:17)
[2023-04-24] MEDS: LACTATED RINGERS 1,000 ML 150 ML IV CONT (07:50)
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
[2023-04-24 09:00] LABS: Hematocrit 28.4 % (37.0-47.0); Hemoglobin 8.7 g/dL (12.0-15.0)
[2023-04-24] MEDS: PANTOPRAZOLE SODIUM IV 40 MG VIAL IV PUSH ×2 (09:42→21:35)
[2023-04-24] MEDS: FOLIC ACID 1 MG/0.2 ML INJ IV PUSH (09:42)
[2023-04-24] MEDS: levoFLOXacin 500 MG/D5W 100 ML 500 MG/100 ML BAG 100 MG IVPB (09:42)
[2023-04-24] MEDS: THIAMINE HCL 200 MG/2 ML VIAL 100 MG IV PUSH (09:43)
[2023-04-24 12:04] LABS: Glucose Point of Care 59 mg/dl (65-105)
[2023-04-24] MEDS: SUCRALFATE SUSP 100 MG/ML 10 ML UDC 1000 MG PO ×3 (12:17→21:35)
[2023-04-24] MEDS: ONDANSETRON INJ 4 MG/2 ML VIAL IV PUSH (12:21)
[2023-04-24 12:42] LABS: Glucose Point of Care 75 mg/dl (65-105)
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
[2023-04-24] MEDS: POTASSIUM CHLORIDE 20 MEQ ER TABLET 80 MEQ PO (17:04)
[2023-04-24] MEDS: chlordiazePOXIDE (*CRX) 25 MG CAPSULE 75 MG PO (17:05)
[2023-04-24] MEDS: DEXTROSE 5%/0.45% SOD CHL 1,000 ML 75 ML IV CONT (17:07)
[2023-04-24 17:14] LABS: Hematocrit 28.2 % (37.0-47.0); Hemoglobin 8.6 g/dL (12.0-15.0)
[2023-04-24 18:28] LABS: Glucose Point of Care 170 mg/dl (65-105)
[2023-04-25] VITALS (17 sets, daily range): BP systolic 110–121; BP diastolic 58–81; PULSE 101–125; RESP 16–20; TEMP 36.1–37.2; O2SAT 95–100; BMI 28.4
[2023-04-25] MEDS: chlordiazePOXIDE (*CRX) 25 MG CAPSULE 75 MG PO ×5 (00:06→23:37)
[2023-04-25 00:08] LABS: Glucose Point of Care 137 mg/dl (65-105)
[2023-04-25] MEDS: MORPHINE SULFATE (*CRX) 2 MG/ML INJ IV PUSH ×5 (04:23→23:37)
[2023-04-25] MEDS: DEXTROSE 5%/0.45% SOD CHL 1,000 ML 75 ML IV CONT (04:59)
[2023-04-25] MEDS: SUCRALFATE SUSP 100 MG/ML 10 ML UDC 1000 MG PO ×4 (04:59→20:29)
[2023-04-25 05:04] LABS: Basophils Absolute Auto 0.1 K/mm3 (0.0-0.1); Basophils Percent Auto 0.8 % (0.2-1.2); Eosinophils Absolute Auto 0.2 K/mm3 (0-0.3); Eosinophils Percent Auto 2.2 % (0-4.4); Hematocrit 29.8 % (37.0-47.0); Hemoglobin 8.8 g/dL (12.0-15.0); Immature Granulocyte Absolute 0.05 K/mm3 (0.00-0.031); Immature Granulocyte Percent A 0.5 % (0-0.5); Lymphocytes Absolute Auto 1.59 K/mm3 (0.9-3.2); Lymphocytes Percent Auto 16.8 % (18.3-44.2); Mean Corpuscular HGB Conc 29.5 g/dl (32-36); Mean Corpuscular Hemoglobin 27.9 pg (26-34); Mean Corpuscular Volume 94.6 fl (80-100); Mean Platelet Volume 10.4 fl (7.4-10.4); Monocytes Absolute Auto 0.7 K/mm3 (0.1-0.6); Monocytes Percent Auto 7.2 % (2.6-8.5); Neutrophils Absolute Auto 6.8 K/mm3 (1.3-6.7); Neutrophils Percent Auto 72.5 % (45.5-73.1); Platelet Count Result 136 k/mm3 (150-375); Red Blood Count 3.15 M/mm3 (4.2-5.4); Red Cell Distribution Width 19.5 % (11.5-14.5); White Blood Count 9.4 K/mm3 (4.5-10.0)
[2023-04-25 05:14] LABS: Anion Gap 8 mmol/L (8-16); Blood Urea Nitrogen 3 mg/dL (7-17); Calcium 7.9 mg/dL (8.4-10.2); Carbon Dioxide 28 mmol/L (22-30); Chloride 99 mmol/L (98-107); Estimated CRCL calculation 114 ml/min; Estimated Glomerular Filt Rate > 60; Glucose 121 mg/dL (65-110); Magnesium 1.8 mg/dL (1.6-2.3); Potassium 3.7 mmol/L (3.4-5.0); Sodium 135 mmol/L (137-145)
[2023-04-25 05:26] LABS: Anisocytosis 1+ (NORMAL); Hypochromasia 1+ (NORMAL); Platelet Estimate Adequate (Adequate); Poikilocytosis 1+ (NORMAL)
[2023-04-25 05:27] LABS: Schistocytes Rare (NORMAL); Tear Drop Cells 1+ (NORMAL)
--- NOTE | 2023-04-25 08:01 | WPDGIPROGNO ---
Progress Note: A&P Assessment and Plan (1) Erosive esophagitis: Code(s): K22.10 - Ulcer of esophagus without bleeding Status: Acute Assessment and Plan: continue with protonix bid and carafate diet as tolerated egd in 6 months to assess healing (2) Coffee ground emesis: Code(s): K92.0 - Hematemesis Status: Acute Assessment and Plan: resolved, from findings of esophagitis with ulcers (3) Acute blood loss anemia: Code(s): D62 - Acute posthemorrhagic anemia Status: Acute Assessment and Plan: stable now (4) Ascites: Code(s): R18.8 - Other ascites Status: Acute Assessment and Plan: will need paracentesis to assess if sbp in the meantime on abx given presentation with GIB and cirrhosis (5) Cirrhosis, alcoholic: Code(s): K70.30 - Alcoholic cirrhosis of liver without ascites Status: Acute Assessment and Plan: needs to stop drinking thiamine, encourage to eat Subjective Date/time seen: 04/25/23 08:01 Interval history: poor appetite, resting, no more coffee ground emesis egd showed severe esophagitis, no varices Review of Systems Review of Systems: All systems reviewed & are unremarkable except as noted in HPI and below Exam Const: General: no acute distress and uncomfortable Other: chronically ill appearing HENMT: Face/Nose/Sinus: Normal nares present Mouth: Yes dry mucous membranes Eyes: General: appearance normal, both eyes and all related structures Sclera: scleral abnormality Pupils: Equal, round and reactive pupils present EOM: EOMs intact bilaterally Other: sclera with mild jaundice. Neck: Neck: supple Resp: Effort & Inspection: normal respiratory effort Auscultation: clear to auscultation bilaterally Cardio: Rate: tachycardic Rhythm: regular rhythm Other: +murmur GI: Inspection: distended GI Palp: Yes Soft to palpation and No Guarding due to palpation present (GI) Auscultation: normal bowel sounds Other: + fluid wave, + small umbilical hernia, reducible Skin: Other: + jaundice, spider angioma in chest Neuro: Speech: normal speech Motor exam (neuro): 5/5 motor strength present throughout Other: A/Ox4 Extrem: General: normal to inspection Psych: Affect: Sad affect present and Anxious affect present Other: Good insight and judgment. Objective Data Vital Signs Vital Signs: Vital Signs - 24 hr 04/24/23 08:11 04/24/23 08:21 04/24/23 08:31 Temperature Pulse Rate 103 H 94 96 Pulse Rate [Monitor] Respiratory Rate 21 H 22 H 18 Blood Pressure 104/66 107/72 111/77 Pulse Oximetry 100 97 95 Oxygen Delivery Nasal Cannula Room Air Room Air Oxygen Flow Rate 4 04/24/23 08:30 04/24/23 11:46 04/24/23 10:00 Temperature 98.1 F Pulse Rate 109 H 103 H Pulse Rate [Monitor] Respiratory Rate 18 Blood Pressure 111/75 Pulse Oximetry 98 Oxygen Delivery Room Air Oxygen Flow Rate 04/24/23 12:00 04/24/23 14:00 04/24/23 12:00 Temperature Pulse Rate 111 H 103 H Pulse Rate [Monitor] Respiratory Rate Blood Pressure Pulse Oximetry Oxygen Delivery Room Air Oxygen Flow Rate 04/24/23 15:54 04/24/23 16:00 04/24/23 16:00 Temperature 98.5 F Pulse Rate 101 H 100 Pulse Rate [Monitor] Respiratory Rate 17 Blood Pressure 110/75 Pulse Oximetry 94 Oxygen Delivery Room Air Oxygen Flow Rate 04/24/23 18:00 04/24/23 19:49 04/24/23 20:00 Temperature 97.6 F Pulse Rate 103 H 101 H Pulse Rate [Monitor] Respiratory Rate 18 Blood Pressure 111/75 Pulse Oximetry 92 Oxygen Delivery Room Air Oxygen Flow Rate 04/24/23 20:00 04/24/23 23:07 04/25/23 00:00 Temperature 98.2 F Pulse Rate 102 H Pulse Rate [Monitor] 101 H Respiratory Rate 18 Blood Pressure 111/75 111/70 Pulse Oximetry 95 Oxygen Delivery Room Air Oxygen Flow Rate 04/24/23 20:00 04/24/23
[2023-04-25] MEDS: FOLIC ACID 1 MG/0.2 ML INJ IV PUSH (09:07)
[2023-04-25] MEDS: levoFLOXacin 500 MG/D5W 100 ML 500 MG/100 ML BAG 100 MG IVPB (09:07)
[2023-04-25] MEDS: PANTOPRAZOLE SODIUM IV 40 MG VIAL IV PUSH ×2 (09:08→20:29)
[2023-04-25] MEDS: THIAMINE HCL 200 MG/2 ML VIAL 100 MG IV PUSH (09:08)
[2023-04-25 09:46] LABS: Mean Platelet Volume 10.3 fl (7.4-10.4); Platelet Count Result 141 k/mm3 (150-375)
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
[2023-04-25 09:57] LABS: INR 1.5; Prothrombin Time 19.1 Seconds (11.1-14.7)
[2023-04-25 09:58] LABS: Partial Thromboplastin Time 44.5 SECONDS (22.3-36.8)
[2023-04-25 11:58] LABS: Glucose Point of Care 113 mg/dl (65-105)
[2023-04-25] MEDS: CALCIUM GLUC 2,000 MG/NS 100ML 2,000 MG/100 ML BAG 100 MG IVPB (14:03)
[2023-04-25] MEDS: POTASSIUM CHLORIDE 20 MEQ ER TABLET 40 MEQ PO (14:04)
[2023-04-25 15:11] LABS: Appearance Peritoneal Fluid Clear (Clear); Color Peritoneal Fluid Yellow (Colorless); Lymphocytes Peritoneal Fluid 16 %; Monocytes Peritoneal Fluid 4 %; Neutrophils Peritoneal Fluid 6 % (0-25); Source Peritoneal Fluid Peritoneal Fluid
[2023-04-25 15:12] LABS: Macrophages Peritoneal Fluid 6 %; Mesothelial Cells Peritoneal Fluid 68 %
[2023-04-25 15:15] LABS: Nucleated Cells Peritoneal Flu 48 /uL (0-500); RBC Peritoneal Fluid < 2000 /uL (0-100000)
[2023-04-25 17:42] LABS: Glucose Point of Care 80 mg/dl (65-105)
[2023-04-26] VITALS (10 sets, daily range): BP systolic 96–110; BP diastolic 50–66; PULSE 106–138; RESP 16; TEMP 36.1–37.2; O2SAT 97–99
[2023-04-26 00:18] LABS: Glucose Point of Care 98 mg/dl (65-105)
[2023-04-26] MEDS: SUCRALFATE SUSP 100 MG/ML 10 ML UDC 1000 MG PO ×4 (05:37→21:42)
[2023-04-26] MEDS: chlordiazePOXIDE (*CRX) 25 MG CAPSULE 75 MG PO ×3 (05:37→21:42)
[2023-04-26] MEDS: MORPHINE SULFATE (*CRX) 2 MG/ML INJ IV PUSH (05:38)
[2023-04-26 06:04] LABS: Glucose Point of Care 70 mg/dl (65-105)
[2023-04-26 06:53] LABS: Basophils Absolute Auto 0.1 K/mm3 (0.0-0.1); Basophils Percent Auto 0.5 % (0.2-1.2); Eosinophils Absolute Auto 0.1 K/mm3 (0-0.3); Eosinophils Percent Auto 0.9 % (0-4.4); Hemoglobin 10.6 g/dL (12.0-15.0); Immature Granulocyte Absolute 0.05 K/mm3 (0.00-0.031); Immature Granulocyte Percent A 0.5 % (0-0.5); Lymphocytes Absolute Auto 1.55 K/mm3 (0.9-3.2); Mean Corpuscular HGB Conc 27.9 g/dl (32-36); Mean Corpuscular Hemoglobin 28.9 pg (26-34); Mean Corpuscular Volume 103.5 fl (80-100); Mean Platelet Volume 10.8 fl (7.4-10.4); Monocytes Absolute Auto 0.7 K/mm3 (0.1-0.6); Monocytes Percent Auto 6.7 % (2.6-8.5); Neutrophils Absolute Auto 7.9 K/mm3 (1.3-6.7); Neutrophils Percent Auto 76.4 % (45.5-73.1); Platelet Count Result 121 k/mm3 (150-375); Red Blood Count 3.67 M/mm3 (4.2-5.4); Red Cell Distribution Width 19.9 % (11.5-14.5); White Blood Count 10.3 K/mm3 (4.5-10.0)
[2023-04-26 07:01] LABS: Anion Gap 12 mmol/L (8-16); Calcium 9.1 mg/dL (8.4-10.2); Carbon Dioxide 19 mmol/L (22-30); Chloride 105 mmol/L (98-107); Estimated CRCL calculation 97 ml/min; Estimated Glomerular Filt Rate > 60; Glucose 97 mg/dL (65-110); Magnesium 1.9 mg/dL (1.6-2.3); Potassium 4.3 mmol/L (3.4-5.0); Sodium 136 mmol/L (137-145)
[2023-04-26 07:09] LABS: Blood Urea Nitrogen < 2 mg/dL (7-17)
[2023-04-26 07:43] LABS: Anisocytosis 1+ (NORMAL); Hypochromasia 1+ (NORMAL); Schistocytes None Seen (NORMAL)
[2023-04-26] MEDS: levoFLOXacin 500 MG/D5W 100 ML 500 MG/100 ML BAG 100 MG IVPB (10:22)
[2023-04-26] MEDS: THIAMINE HCL 200 MG/2 ML VIAL 100 MG IV PUSH (10:25)
[2023-04-26] MEDS: PANTOPRAZOLE SODIUM IV 40 MG VIAL IV PUSH (10:25)
[2023-04-26] MEDS: FOLIC ACID 1 MG/0.2 ML INJ IV PUSH (10:25)
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
[2023-04-26] MEDS: ALBUMIN HUMAN 25% 25 GM/100 ML 100 ML IVPB (12:22)
[2023-04-26] MEDS: SODIUM CHLORIDE 0.9% IV 500 ML IV CONT (12:57)
[2023-04-26 13:01] LABS: Beta-Hydroxybutyrate/Acetoacetate 0.34 mmol/L (0.02-0.27)
[2023-04-26 13:11] LABS: Lactic Acid Reflex 2.6 mmol/L (0.7-2.0)
[2023-04-26] MEDS: traMADol HCL (*CRX) 50 MG TABLET 100 MG PO ×2 (13:24→21:41)
[2023-04-26 15:30] LABS: Glucose Point of Care 111 mg/dl (65-105)
[2023-04-26 15:59] LABS: Reflex Lactic Acid Yes or No Add Lactic
[2023-04-26 16:47] LABS: Lactic Acid 2.1 mmol/L (0.7-2.0)
[2023-04-26 18:21] LABS: Glucose Point of Care 111 mg/dl (65-105)
[2023-04-26] MEDS: PANTOPRAZOLE 40 MG TABLET PO (21:42)
[2023-04-26 23:52] LABS: Glucose Point of Care 106 mg/dl (65-105)
[2023-04-27] VITALS (11 sets, daily range): BP systolic 99–117; BP diastolic 52–68; PULSE 97–128; RESP 14–20; TEMP 36.4–37.3; O2SAT 94–100
[2023-04-27 05:58] LABS: Basophils Absolute Auto 0.1 K/mm3 (0.0-0.1); Basophils Percent Auto 0.7 % (0.2-1.2); Eosinophils Absolute Auto 0.2 K/mm3 (0-0.3); Eosinophils Percent Auto 1.4 % (0-4.4); Hematocrit 27.9 % (37.0-47.0); Hemoglobin 8.2 g/dL (12.0-15.0); Immature Granulocyte Absolute 0.03 K/mm3 (0.00-0.031); Immature Granulocyte Percent A 0.3 % (0-0.5); Lymphocytes Absolute Auto 1.46 K/mm3 (0.9-3.2); Lymphocytes Percent Auto 13.6 % (18.3-44.2); Mean Corpuscular HGB Conc 29.4 g/dl (32-36); Mean Corpuscular Hemoglobin 28.6 pg (26-34); Mean Corpuscular Volume 97.2 fl (80-100); Mean Platelet Volume 10.7 fl (7.4-10.4); Monocytes Percent Auto 9.3 % (2.6-8.5); Neutrophils Percent Auto 74.7 % (45.5-73.1); Platelet Count Result 138 k/mm3 (150-375); Red Blood Count 2.87 M/mm3 (4.2-5.4); Red Cell Distribution Width 20.2 % (11.5-14.5); White Blood Count 10.8 K/mm3 (4.5-10.0)
[2023-04-27 06:06] LABS: Lactic Acid Reflex 1.2 mmol/L (0.7-2.0)
[2023-04-27] MEDS: SUCRALFATE SUSP 100 MG/ML 10 ML UDC 1000 MG PO ×4 (06:10→21:28)
[2023-04-27] MEDS: chlordiazePOXIDE (*CRX) 25 MG CAPSULE 75 MG PO ×3 (06:10→21:28)
[2023-04-27 06:12] LABS: Beta-Hydroxybutyrate/Acetoacetate 0.08 mmol/L (0.02-0.27)
[2023-04-27] MEDS: traMADol HCL (*CRX) 50 MG TABLET 100 MG PO ×2 (06:12→17:17)
[2023-04-27 06:24] LABS: Anisocytosis 1+ (NORMAL); Hypochromasia 1+ (NORMAL); Ovalocytes 1+ (NORMAL); Tear Drop Cells 1+ (NORMAL)
[2023-04-27 06:26] LABS: Schistocytes Rare (NORMAL)
[2023-04-27 06:33] LABS: Alanine Aminotransferase 16 U/L (6-35); Alkaline Phosphatase 234 U/L (38-126); Anion Gap 9 mmol/L (8-16); Aspartate Amino Transferase 69 U/L (14-36); Bilirubin,Total 5.2 mg/dL (0.2-1.3); Blood Urea Nitrogen 2 mg/dL (7-17); Calcium 8.7 mg/dL (8.4-10.2); Carbon Dioxide 24 mmol/L (22-30); Chloride 103 mmol/L (98-107); Estimated CRCL calculation 93 ml/min; Estimated Glomerular Filt Rate > 60; Glucose 99 mg/dL (65-110); Magnesium 1.6 mg/dL (1.6-2.3); Sodium 136 mmol/L (137-145)
[2023-04-27 06:46] LABS: Glucose Point of Care 121 mg/dl (65-105)
[2023-04-27] MEDS: FOLIC ACID 1 MG TABLET PO (09:31)
[2023-04-27] MEDS: PANTOPRAZOLE 40 MG TABLET PO ×2 (09:31→21:28)
[2023-04-27] MEDS: THIAMINE HCL 100 MG TABLET PO (09:31)
[2023-04-27] MEDS: ACETAMINOPHEN 325 MG TABLET 650 MG PO (11:31)
[2023-04-27 11:46] LABS: Glucose Point of Care 129 mg/dl (65-105)
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
[2023-04-27] MEDS: FUROSEMIDE 20 MG TABLET PO (17:17)
[2023-04-27] MEDS: GABAPENTIN 300 MG CAPSULE PO (17:17)
[2023-04-27] MEDS: SPIRONOLACTONE 50 MG TABLET PO (17:17)
[2023-04-27 17:28] LABS: Glucose Point of Care 142 mg/dl (65-105)
[2023-04-27 23:56] LABS: Glucose Point of Care 116 mg/dl (65-105)
[2023-04-28] VITALS (39 sets, daily range): BP systolic 90–108; BP diastolic 46–74; PULSE 87–214; RESP 18–20; TEMP 36.4–37.7; O2SAT 93–100
[2023-04-28] MEDS: chlordiazePOXIDE (*CRX) 25 MG CAPSULE 75 MG PO ×2 (05:55→23:24)
[2023-04-28] MEDS: SUCRALFATE SUSP 100 MG/ML 10 ML UDC 1000 MG PO ×3 (05:55→20:32)
[2023-04-28 06:03] LABS: Basophils Absolute Auto 0.1 K/mm3 (0.0-0.1); Basophils Percent Auto 0.6 % (0.2-1.2); Eosinophils Absolute Auto 0.1 K/mm3 (0-0.3); Eosinophils Percent Auto 0.6 % (0-4.4); Hematocrit 29.1 % (37.0-47.0); Hemoglobin 8.6 g/dL (12.0-15.0); Immature Granulocyte Absolute 0.08 K/mm3 (0.00-0.031); Immature Granulocyte Percent A 0.7 % (0-0.5); Lymphocytes Absolute Auto 1.01 K/mm3 (0.9-3.2); Lymphocytes Percent Auto 8.7 % (18.3-44.2); Mean Corpuscular HGB Conc 29.6 g/dl (32-36); Mean Corpuscular Hemoglobin 28.6 pg (26-34); Mean Corpuscular Volume 96.7 fl (80-100); Mean Platelet Volume 10.6 fl (7.4-10.4); Monocytes Absolute Auto 0.8 K/mm3 (0.1-0.6); Monocytes Percent Auto 7.1 % (2.6-8.5); Neutrophils Absolute Auto 9.6 K/mm3 (1.3-6.7); Neutrophils Percent Auto 82.3 % (45.5-73.1); Platelet Count Result 156 k/mm3 (150-375); Red Blood Count 3.01 M/mm3 (4.2-5.4); Red Cell Distribution Width 20.5 % (11.5-14.5); White Blood Count 11.7 K/mm3 (4.5-10.0)
[2023-04-28 06:17] LABS: Alanine Aminotransferase 16 U/L (6-35); Albumin Level 3.2 g/dL (3.5-5.1); Alkaline Phosphatase 244 U/L (38-126); Anion Gap 8 mmol/L (8-16); Aspartate Amino Transferase 77 U/L (14-36); Bilirubin,Total 6.2 mg/dL (0.2-1.3); Blood Urea Nitrogen 5 mg/dL (7-17); Calcium 8.6 mg/dL (8.4-10.2); Carbon Dioxide 25 mmol/L (22-30); Chloride 100 mmol/L (98-107); Estimated CRCL calculation 110 ml/min; Estimated Glomerular Filt Rate > 60; Glucose 102 mg/dL (65-110); Magnesium 1.5 mg/dL (1.6-2.3); Sodium 133 mmol/L (137-145)
[2023-04-28 06:28] LABS: Glucose Point of Care 106 mg/dl (65-105)
[2023-04-28 07:03] LABS: Platelet Estimate Adequate (Adequate)
[2023-04-28 07:04] LABS: Anisocytosis 1+ (NORMAL); Hypochromasia 1+ (NORMAL); Ovalocytes 1+ (NORMAL); Poikilocytosis 1+ (NORMAL); Schistocytes None Seen (NORMAL); Tear Drop Cells 1+ (NORMAL)
--- NOTE | 2023-04-28 07:10 | ECG_ITS ---
Measurements Intervals [place] Rate: 198 P: ID: 0 QRS: -5 QRSD: 103 T: 9 QT: 229 QTc: 416 Interpretive Statements SUPRAVENTRICULAR TACHYCARDIA DELAYED PRECORDIAL R/S TRANSITION CONSIDER INFERIOR INFARCT, AGE INDETERMINATE BORDERLINE ST-T WAVE ABNORMALITY- HIGH LATERAL LEADS ABNORMAL ECG COMPARED TO ECG 04/23/2023 11:31:59 SUPRAVENTRICULAR TACHYCARDIA NOW PRESENT Electronically Signed On 04-28-2023 9:37:15 [employer] OPERATOR HELPER by Earnest Vitale D.O.
[2023-04-28] MEDS: METOPROLOL TARTRATE 25 MG TABLET PO (07:34)
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
[2023-04-28] MEDS: ADENOSINE IV SOLN 6 MG/2 ML VIAL IV PUSH (08:34)
[2023-04-28] MEDS: ADENOSINE IV SOLN 6 MG/2 ML VIAL 12 MG IV PUSH (08:37)
--- NOTE | 2023-04-28 08:45 | ECG_ITS ---
Measurements Intervals [place] Rate: 177 P: VT: 0 QRS: 4 QRSD: 117 T: 34 QT: 257 QTc: 442 Interpretive Statements SUPRAVENTRICULAR TACHYCARDIA DELAYED PRECORDIAL R/S TRANSITION MINIMAL Q WAVES- INFERIOR LEADS ABNORMAL ECG COMPARED TO ECG 04/28/2023 07:19:30 NO SIGNIFICANT CHANGES Electronically Signed On 04-28-2023 12:08:16 CORPORATE TUTOR by Earnest Vitale D.O.
[2023-04-28] MEDS: MAGNESIUM SULF 2 GM/WATER 50ML 2 GM/50 ML BAG IVPB (08:47)
[2023-04-28] MEDS: METOPROLOL TARTRATE INJ 5 MG/5 ML VIAL IV PUSH ×3 (08:48→09:06)
[2023-04-28] MEDS: SODIUM CHLORIDE 0.9% IV 250 ML 999 ML IV CONT (08:59)
[2023-04-28] MEDS: AMIODARONE 150 MG/D5W 100 ML 150 MG/100 ML BAG 600 MG IV CONT (09:21)
[2023-04-28] MEDS: AMIODARONE 360 MG/D5W 200 ML 360 MG/200 ML BAG 33.33 MG IV CONT (09:33)
--- NOTE | 2023-04-28 09:57 | PC.NURSE ---
Addendum entered by Karon Chan RN 04/28/23 10:07: 0745: Upon transfer, pt's belongings checked and secured in safe. Original Note: 0745: Pt received from [facility] after [facility] was called. 0830: This RN, horticultural specialty grower field and ICU Director at bedside. Attempted to medically cardiovert pt. See MAR for medication administration and times.
--- NOTE | 2023-04-28 11:00 | PC.NURSE ---
Dr. Franz at bedside to re-assess pt. updated on current BP and HR. New orders for another 500ml IVPB bolus, continue Amiodarone gtt.
[2023-04-28] MEDS: SODIUM CHLORIDE 0.9% IV 500 ML IV CONT ×2 (11:07→12:20)
[2023-04-28 11:56] LABS: Glucose Point of Care 107 mg/dl (65-105)
[2023-04-28] MEDS: PANTOPRAZOLE 40 MG TABLET PO ×2 (12:22→20:32)
[2023-04-28] MEDS: DEXTROSE 5%/0.45% SOD CHL 1,000 ML 75 ML IV CONT ×2 (12:53→23:27)
--- NOTE | 2023-04-28 13:58 | PCNFU ---
Nutrition Follow-Up Complete: Inadequate oral intake related to social environmental factor, loss of appetite as evidenced by report of poor intake and weight loss. Goal:Improve PO intake when diet is advanced Pt just advancing to a diet today. Continue with same goal. Pt current nutrition is Regular, Ensure compact BID. Nutrition recommendation: continue with current plan of care Last recorded weight is 63.5 kg. Bowel Motility: +BM 04/26 Labs Reviewed: Hgb:8.6, HCT:29.1, Alb:3.2, NA:133, BUN:5, Cr:0.5 Meds Noted: lasix, zofran, protonix Skin: no skin issues noted Additional Notes: Pt diet is just now being advanced, pt was unresponsive before. Diet is regular, ensure compact BID in place as well. Will monitor intake. Monitor diet advancement, itnakes, weights, labs, plan of care Follow up in 3 days
[2023-04-28] MEDS: AMIODARONE 360 MG/D5W 200 ML 360 MG/200 ML BAG 16.67 MG IV CONT (14:52)
--- NOTE | 2023-04-28 16:18 | WPDGIPROGNO ---
Progress Note: A&P Assessment and Plan (1) Erosive esophagitis: Code(s): K22.10 - Ulcer of esophagus without bleeding Status: Acute Assessment and Plan: on protonix and carafate egd in 5-6 months (2) Cirrhosis, alcoholic: Code(s): K70.30 - Alcoholic cirrhosis of liver without ascites Status: Acute Assessment and Plan: decompensated with ascites- no SBP diuretics on hold given poor oral intake and electrolyte abnormality- renal function is ok resume soon and monitor lytes will need to establish care with electric appliance installer as outpatient (will send referral) and stop drinking altogether (3) Alcoholic hepatitis: Code(s): K70.10 - Alcoholic hepatitis without ascites Status: Acute (4) Ascites: Code(s): R18.8 - Other ascites Status: Acute Assessment and Plan: no sbp 2g na diet (5) Acute blood loss anemia: Code(s): D62 - Acute posthemorrhagic anemia Status: Acute Assessment and Plan: stable (6) Alcoholism: Code(s): F10.20 - Alcohol dependence, uncomplicated Status: Acute Assessment and Plan: on withdrawal precaution thiamine, librium, etc Subjective Date/time seen: 04/28/23 16:18 Interval history: poor appetite, anxious on librium Review of Systems Review of Systems: All systems reviewed & are unremarkable except as noted in HPI and below Exam Const: General: uncomfortable Other: chronically ill appearing HENMT: Face/Nose/Sinus: Normal nares present Mouth: Yes dry mucous membranes Eyes: General: appearance normal, both eyes and all related structures Sclera: scleral abnormality Other: sclera with mild jaundice. Neck: Neck: supple Resp: Effort & Inspection: normal respiratory effort Auscultation: clear to auscultation bilaterally Cardio: Rate: tachycardic Rhythm: regular rhythm Other: +murmur GI: Inspection: distended GI Palp: Yes Soft to palpation and No Guarding due to palpation present (GI) Auscultation: normal bowel sounds Other: + fluid wave, + small umbilical hernia, reducible Skin: Other: + jaundice, spider angioma in chest Neuro: Speech: normal speech Motor exam (neuro): 5/5 motor strength present throughout Other: A/Ox4 Extrem: General: normal to inspection Psych: Affect: Anxious affect present Other: Good insight and judgment. Objective Data Vital Signs Vital Signs: Vital Signs - 24 hr 11/26/23 17:15 04/27/23 20:12 04/27/23 20:00 Temperature 98.4 F Pulse Rate 108 H 99 Pulse Rate [Monitor] 106 H Respiratory Rate 20 17 Blood Pressure 111/66 99/60 L Pulse Oximetry 100 95 Oxygen Delivery 04/27/23 20:00 04/27/23 20:00 04/28/23 04:00 Temperature Pulse Rate 114 H 100 Pulse Rate [Monitor] Respiratory Rate Blood Pressure Pulse Oximetry Oxygen Delivery Room Air 04/28/23 00:00 04/28/23 00:00 04/28/23 04:00 Temperature Pulse Rate 107 H Pulse Rate [Monitor] 104 H 116 H Respiratory Rate Blood Pressure Pulse Oximetry Oxygen Delivery 04/28/23 06:00 04/28/23 07:34 04/28/23 07:52 Temperature 99.1 F 99.9 F H Pulse Rate 110 H 199 H 205 H Pulse Rate [Monitor] Respiratory Rate 20 20 Blood Pressure 93/63 L 98/58 L Pulse Oximetry 97 98 Oxygen Delivery 04/28/23 08:48 04/28/23 08:36 04/28/23 08:38 Temperature Pulse Rate 175 H 200 H 178 H Pulse Rate [Monitor] Respiratory Rate Blood Pressure 98/55 L 98/59 L Pulse Oximetry Oxygen Delivery 04/28/23 08:40 04/28/23 08:43 04/28/23 08:49 Temperature Pulse Rate 176 H 180 H 175 H Pulse Rate [Monitor] Respiratory Rate Blood Pressure 97/59 L 91/56 L 93/60 L Pulse Oximetry Oxygen Delivery 04/28/23 08:53 04/28/23 08:56 04/28/23 08:55 Temperature Pulse Rate 172 H 169 H 165 H Pulse Rate [Monitor] Respiratory Rate Blood Pressure 93/60 L 95/54 L 95/54 L Pulse
[2023-04-28] MEDS: GABAPENTIN 300 MG CAPSULE PO (17:30)
--- NOTE | 2023-04-28 17:53 | PC.NURSE ---
174: Call placed to Dr. Franz with an update on pt. RN unable to reach MD as phone call went to voicemail, which is full. 1744: RN called covering provider, S[facility] DALY, with an update on pt. Pt was bladder scanned at 1700, which revealed >335ml in bladder. Pt voided 300ml. RN re-bladder scanned pt, with result of >278. Unsure how accurate the bladder scan is though related to ascites and previous paracentesis. Pt HR remains in 140's throughout the day. RN asked if pt felt like she has emptied her bladder, pt states I don't know what an empty bladder feels like. ADDY Campo to be up to assess pt.
[2023-04-28 18:05] LABS: Glucose Point of Care 116 mg/dl (65-105)
[2023-04-28 18:58] LABS: Barbiturate Screen Urine Negative (Negative); Benzodiazepines Screen Urine Positive (Negative)
[2023-04-28 19:01] LABS: Amphetamine Screen Urine Negative (Negative); Cannabinoid Screen Urine Positive (Negative); Cocaine Screen Urine Negative (Negative); Methadone Screen Urine Negative (Negative); Opiate Screen Urine Negative (Negative); Phencyclidine Screen Urine Negative (Negative)
[2023-04-28] MEDS: SODIUM CHLORIDE 0.9% IV 1,000 ML 999 ML IV CONT (19:34)
[2023-04-28] MEDS: ALBUMIN HUMAN 25% 12.5 GM/50ML 50 ML IVPB (20:17)
[2023-04-29] VITALS (18 sets, daily range): BP systolic 92–99; BP diastolic 46–60; PULSE 93–102; RESP 18–96; TEMP 36.6–37.1; O2SAT 94–100
[2023-04-29 00:25] LABS: Glucose Point of Care 119 mg/dl (65-105)
[2023-04-29] MEDS: AMIODARONE 360 MG/D5W 200 ML 360 MG/200 ML BAG 16.67 MG IV CONT ×2 (02:47→16:36)
[2023-04-29 05:27] LABS: Basophils Absolute Auto 0.1 K/mm3 (0.0-0.1); Basophils Percent Auto 1.2 % (0.2-1.2); Eosinophils Absolute Auto 0.2 K/mm3 (0-0.3); Eosinophils Percent Auto 1.6 % (0-4.4); Hematocrit 29.1 % (37.0-47.0); Hemoglobin 8.6 g/dL (12.0-15.0); Immature Granulocyte Absolute 0.13 K/mm3 (0.00-0.031); Immature Granulocyte Percent A 1.3 % (0-0.5); Lymphocytes Absolute Auto 1.44 K/mm3 (0.9-3.2); Lymphocytes Percent Auto 14.5 % (18.3-44.2); Mean Corpuscular HGB Conc 29.6 g/dl (32-36); Mean Corpuscular Hemoglobin 28.9 pg (26-34); Mean Corpuscular Volume 97.7 fl (80-100); Mean Platelet Volume 10.9 fl (7.4-10.4); Monocytes Absolute Auto 0.8 K/mm3 (0.1-0.6); Monocytes Percent Auto 8.3 % (2.6-8.5); Neutrophils Absolute Auto 7.3 K/mm3 (1.3-6.7); Neutrophils Percent Auto 73.1 % (45.5-73.1); Platelet Count Result 219 k/mm3 (150-375); Red Blood Count 2.98 M/mm3 (4.2-5.4); White Blood Count 9.9 K/mm3 (4.5-10.0)
[2023-04-29 05:44] LABS: Alanine Aminotransferase 16 U/L (6-35); Albumin Level 3.2 g/dL (3.5-5.1); Alkaline Phosphatase 193 U/L (38-126); Anion Gap 10 mmol/L (8-16); Aspartate Amino Transferase 71 U/L (14-36); Bilirubin,Total 4.7 mg/dL (0.2-1.3); Blood Urea Nitrogen 8 mg/dL (7-17); Calcium 7.8 mg/dL (8.4-10.2); Carbon Dioxide 23 mmol/L (22-30); Chloride 100 mmol/L (98-107); Estimated CRCL calculation 98 ml/min; Estimated Glomerular Filt Rate > 60; Glucose 109 mg/dL (65-110); Magnesium 1.9 mg/dL (1.6-2.3); Potassium 3.1 mmol/L (3.4-5.0); Sodium 133 mmol/L (137-145)
[2023-04-29] MEDS: SUCRALFATE SUSP 100 MG/ML 10 ML UDC 1000 MG PO ×4 (06:23→20:16)
[2023-04-29] MEDS: chlordiazePOXIDE (*CRX) 25 MG CAPSULE 75 MG PO ×3 (06:23→17:40)
[2023-04-29] MEDS: PANTOPRAZOLE 40 MG TABLET PO ×2 (09:08→20:16)
[2023-04-29] MEDS: THIAMINE HCL 100 MG TABLET PO (09:08)
[2023-04-29] MEDS: FOLIC ACID 1 MG TABLET PO (09:08)
[2023-04-29] MEDS: GABAPENTIN 300 MG CAPSULE PO ×2 (09:08→17:40)
[2023-04-29] MEDS: DEXTROSE 5%/0.45% SOD CHL 1,000 ML 75 ML IV CONT ×2 (09:14→23:39)
[2023-04-29] MEDS: traMADol HCL (*CRX) 50 MG TABLET 100 MG PO (12:18)
--- NOTE | 2023-04-29 15:39 | WPDGIPROGNO ---
Progress Note: A&P Assessment and Plan (1) Erosive esophagitis: Code(s): K22.10 - Ulcer of esophagus without bleeding Status: Acute Assessment and Plan: on protonix and carafate egd in 5-6 months (2) Cirrhosis, alcoholic: Code(s): K70.30 - Alcoholic cirrhosis of liver without ascites Status: Acute Assessment and Plan: decompensated with ascites- no SBP diuretics on hold given poor oral intake and electrolyte abnormality (had low Mg yesterday and run of SVT)- renal function is ok resume soon and monitor lytes encourage to eat/nutrition support will need to establish care with gathering machine feeder as outpatient (will send referral) and stop drinking altogether also alcoholic hepatitis, prognosis is guarded specially if keeps drinking (3) Alcoholic hepatitis: Code(s): K70.10 - Alcoholic hepatitis without ascites Status: Acute Assessment and Plan: bili improved today renal function is normal inr 1.5 (4) Ascites: Code(s): R18.8 - Other ascites Status: Acute Assessment and Plan: no sbp 2g na diet (5) Acute blood loss anemia: Code(s): D62 - Acute posthemorrhagic anemia Status: Acute Assessment and Plan: stable (6) Alcoholism: Code(s): F10.20 - Alcohol dependence, uncomplicated Status: Acute Assessment and Plan: on withdrawal precaution thiamine, librium, etc avoid oversedation (7) Alcohol withdrawal: Code(s): F10.939 - Alcohol use, unspecified with withdrawal, unspecified Status: Acute Subjective Date/time seen: 04/29/23 15:39 Interval history: she is sitting on portable toilet, she is talking but slow to reach. poor appetite. Review of Systems Review of Systems: All systems reviewed & are unremarkable except as noted in HPI and below Exam Const: Other: chronically ill appearing, slow to respond HENMT: Face/Nose/Sinus: Normal nares present Eyes: General: appearance normal, both eyes and all related structures Sclera: scleral abnormality Other: sclera with mild jaundice. Neck: Neck: supple Resp: Effort & Inspection: normal respiratory effort Auscultation: clear to auscultation bilaterally Cardio: Rate: tachycardic Rhythm: regular rhythm Other: +murmur GI: Inspection: distended GI Palp: Yes Soft to palpation and No Guarding due to palpation present (GI) Auscultation: normal bowel sounds Other: + fluid wave, + small umbilical hernia, reducible Skin: Other: + jaundice, spider angioma in chest Neuro: Speech: normal speech Motor exam (neuro): 5/5 motor strength present throughout Other: slow to talk Extrem: General: normal to inspection Psych: Affect: Anxious affect present Other: Good insight and judgment. Objective Data Vital Signs Vital Signs: Vital Signs - 24 hr 04/28/23 15:49 04/28/23 15:57 04/28/23 16:00 Temperature 98.9 F Pulse Rate 134 H 145 H Pulse Rate [Monitor] 134 H Respiratory Rate 18 Blood Pressure 92/58 L 92/58 L Pulse Oximetry 94 Oxygen Delivery 04/28/23 18:00 04/28/23 20:12 04/28/23 20:00 Temperature 97.8 F Pulse Rate 145 H 141 H Pulse Rate [Monitor] 140 H Respiratory Rate 18 Blood Pressure 92/58 L Pulse Oximetry 96 Oxygen Delivery 04/28/23 20:00 04/28/23 23:52 04/29/23 00:00 Temperature 97.6 F Pulse Rate 141 H 94 Pulse Rate [Monitor] 95 Respiratory Rate 18 18 Blood Pressure 92/46 L Pulse Oximetry 96 100 Oxygen Delivery Room Air 04/29/23 00:00 04/28/23 20:00 04/28/23 22:00 Temperature Pulse Rate 94 141 H 87 Pulse Rate [Monitor] Respiratory Rate 18 Blood Pressure Pulse Oximetry 100 Oxygen Delivery Room Air 04/29/23 00:00 04/29/23 02:12 04/29/23 02:47 Temperature Pulse Rate 96 93 94 Pulse Rate [Monitor] Respiratory Rate Blood Pressure 92/46 L Pulse Oximetry Oxygen Delivery 04/29/23 04:51
[2023-04-29 18:19] LABS: Glucose Point of Care 182 mg/dl (65-105)
[2023-04-29 18:19] LABS: Glucose Point of Care 126 mg/dl (65-105)
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
[2023-04-29] MEDS: SODIUM CHLORIDE 0.9% IV 500 ML IV CONT (20:15)
[2023-04-29] MEDS: KCL 20 MEQ/SW 100 ML 100 ML 50 MEQ IVPB ×2 (20:15→23:40)
[2023-04-29] MEDS: chlordiazePOXIDE (*CRX) 25 MG CAPSULE 50 MG PO (22:50)
[2023-04-30] VITALS (17 sets, daily range): BP systolic 92–110; BP diastolic 53–70; PULSE 97–109; RESP 18–22; TEMP 36.2–37.5; O2SAT 94–100
[2023-04-30 02:14] LABS: Basophils Absolute Auto 0.1 K/mm3 (0.0-0.1); Basophils Percent Auto 1.1 % (0.2-1.2); Eosinophils Absolute Auto 0.1 K/mm3 (0-0.3); Eosinophils Percent Auto 1.7 % (0-4.4); Hematocrit 23.9 % (37.0-47.0); Hemoglobin 7.2 g/dL (12.0-15.0); Immature Granulocyte Absolute 0.03 K/mm3 (0.00-0.031); Immature Granulocyte Percent A 0.4 % (0-0.5); Lymphocytes Absolute Auto 1.19 K/mm3 (0.9-3.2); Lymphocytes Percent Auto 16.8 % (18.3-44.2); Mean Corpuscular HGB Conc 30.1 g/dl (32-36); Mean Corpuscular Hemoglobin 28.7 pg (26-34); Mean Corpuscular Volume 95.2 fl (80-100); Mean Platelet Volume 10.8 fl (7.4-10.4); Monocytes Percent Auto 14.4 % (2.6-8.5); Neutrophils Absolute Auto 4.6 K/mm3 (1.3-6.7); Neutrophils Percent Auto 65.6 % (45.5-73.1); Platelet Count Result 190 k/mm3 (150-375); Red Blood Count 2.51 M/mm3 (4.2-5.4); Red Cell Distribution Width 20.7 % (11.5-14.5); White Blood Count 7.1 K/mm3 (4.5-10.0)
[2023-04-30 02:27] LABS: Alanine Aminotransferase 14 U/L (6-35); Albumin Level 1.6 g/dL (3.5-5.1); Alkaline Phosphatase 171 U/L (38-126); Anion Gap 8 mmol/L (8-16); Aspartate Amino Transferase 60 U/L (14-36); Bilirubin,Total 4.3 mg/dL (0.2-1.3); Blood Urea Nitrogen 3 mg/dL (7-17); Calcium 7.7 mg/dL (8.4-10.2); Carbon Dioxide 22 mmol/L (22-30); Chloride 102 mmol/L (98-107); Estimated CRCL calculation 140 ml/min; Estimated Glomerular Filt Rate > 60; Glucose 99 mg/dL (65-110); Magnesium 1.8 mg/dL (1.6-2.3); Potassium 3.9 mmol/L (3.4-5.0); Sodium 132 mmol/L (137-145)
[2023-04-30] MEDS: SUCRALFATE SUSP 100 MG/ML 10 ML UDC 1000 MG PO ×4 (05:32→22:01)
[2023-04-30] MEDS: chlordiazePOXIDE (*CRX) 25 MG CAPSULE 50 MG PO ×2 (05:32→14:15)
[2023-04-30] MEDS: PANTOPRAZOLE 40 MG TABLET PO ×2 (08:30→21:13)
[2023-04-30] MEDS: FOLIC ACID 1 MG TABLET PO (08:30)
[2023-04-30] MEDS: THIAMINE HCL 100 MG TABLET PO (08:30)
[2023-04-30] MEDS: GABAPENTIN 300 MG CAPSULE PO ×2 (08:30→17:10)
[2023-04-30] MEDS: DEXTROSE 5%/0.45% SOD CHL 1,000 ML 100 ML IV CONT ×2 (08:32→17:14)
[2023-04-30 13:35] LABS: Glucose Point of Care 101 mg/dl (65-105)
--- NOTE | 2023-04-30 15:36 | WPDGIPROGNO ---
Progress Note: A&P Assessment and Plan (1) Erosive esophagitis: Code(s): K22.10 - Ulcer of esophagus without bleeding Status: Acute Assessment and Plan: on protonix and carafate egd in 5-6 months (2) Cirrhosis, alcoholic: Code(s): K70.30 - Alcoholic cirrhosis of liver without ascites Status: Acute Assessment and Plan: decompensated with ascites- no SBP will resume diuretics at low dose, monitor lytes encourage to eat/nutrition support will need follow-up with plastic tubing insulation supervisor as outpatient and stop drinking altogether alcoholic hepatitis, prognosis is guarded specially if keeps drinking (3) Alcoholic hepatitis: Code(s): K70.10 - Alcoholic hepatitis without ascites Status: Acute Assessment and Plan: bili downtrending 4.3 renal function is normal (4) Ascites: Code(s): R18.8 - Other ascites Status: Acute Assessment and Plan: no sbp 2g na diet and low dose diuretics (5) Acute blood loss anemia: Code(s): D62 - Acute posthemorrhagic anemia Status: Acute Assessment and Plan: multifactorial had erosive esophagitis on admission ppi (6) Alcoholism: Code(s): F10.20 - Alcohol dependence, uncomplicated Status: Acute Assessment and Plan: on withdrawal precaution thiamine, librium, etc avoid oversedation (7) Alcohol withdrawal: Code(s): F10.939 - Alcohol use, unspecified with withdrawal, unspecified Status: Acute Subjective Date/time seen: 04/30/23 15:36 Interval history: no changes, poor interaction, flat affect, not eating much ( food here sucks ) Review of Systems Review of Systems: All systems reviewed & are unremarkable except as noted in HPI and below Exam Const: General: comfortable and no acute distress Other: drowsy HENMT: Face/Nose/Sinus: Normal nares present Eyes: Pupils: Equal, round and reactive pupils present Neck: Neck: supple Resp: Effort & Inspection: normal respiratory effort Auscultation: clear to auscultation bilaterally Cardio: Rate: regular rate Rhythm: regular rhythm Heart sounds: no gallops, no murmurs and no rubs GI: Inspection: distended GI Palp: Yes Soft to palpation and No Tenderness to palpation present (GI) Auscultation: normal bowel sounds Skin: Other: spider angioma chest Neuro: Speech: normal speech Other: awake and alert but slow to respond Extrem: General: no edema Psych: Other: flat affect Objective Data Vital Signs Vital Signs: Vital Signs - 24 hr 04/29/23 16:36 04/29/23 16:00 04/29/23 16:00 Temperature 98.6 F Pulse Rate 97 100 102 H Pulse Rate [Monitor] Respiratory Rate 22 H Blood Pressure 97/52 L Pulse Oximetry 98 Oxygen Delivery 04/29/23 18:00 04/29/23 20:13 04/29/23 20:00 Temperature 98.0 F Pulse Rate 96 100 98 Pulse Rate [Monitor] Respiratory Rate 22 H Blood Pressure 98/47 L Pulse Oximetry 96 Oxygen Delivery 04/29/23 20:00 04/29/23 20:00 04/29/23 22:00 Temperature Pulse Rate 97 Pulse Rate [Monitor] 98 Respiratory Rate Blood Pressure Pulse Oximetry 95 Oxygen Delivery Room Air 04/29/23 23:25 04/30/23 00:00 04/30/23 00:00 Temperature 98.2 F Pulse Rate 95 104 H Pulse Rate [Monitor] 104 H Respiratory Rate 22 H Blood Pressure 98/60 L Pulse Oximetry 97 Oxygen Delivery 04/30/23 00:00 04/30/23 02:00 04/30/23 03:53 Temperature 97.9 F Pulse Rate 103 H 100 Pulse Rate [Monitor] Respiratory Rate 22 H Blood Pressure 110/63 Pulse Oximetry 100 Oxygen Delivery Room Air 04/30/23 03:58 04/30/23 03:58 04/30/23 03:59 Temperature Pulse Rate 100 Pulse Rate [Monitor] 100 Respiratory Rate Blood Pressure Pulse Oximetry Oxygen Delivery Room Air 04/30/23 06:00 04/30/23 08:00 04/30/23 08:00 Temperature 98.4 F Pulse Rate 100 104 H Pulse Rate [Monitor] Respiratory Rate
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
[2023-04-30 18:29] LABS: Glucose Point of Care 117 mg/dl (65-105)
[2023-04-30] MEDS: MORPHINE SULFATE (*CRX) 2 MG/ML INJ 1 MG IV PUSH (21:13)
[2023-04-30] MEDS: TUBING, BLOOD PLUM PUMP TUBING 1 EACH XX (22:01)
[2023-04-30] MEDS: SODIUM CHLORIDE 0.9% IV 250 ML 30 ML IV CONT (22:01)
[2023-05-01] VITALS (17 sets, daily range): BP systolic 99–116; BP diastolic 55–65; PULSE 94–112; RESP 16–32; TEMP 36.3–37.4; O2SAT 92–100
[2023-05-01 00:14] LABS: Glucose Point of Care 101 mg/dl (65-105)
[2023-05-01 05:01] LABS: Basophils Absolute Auto 0.1 K/mm3 (0.0-0.1); Basophils Percent Auto 1.4 % (0.2-1.2); Eosinophils Absolute Auto 0.1 K/mm3 (0-0.3); Eosinophils Percent Auto 1.4 % (0-4.4); Hematocrit 29.4 % (37.0-47.0); Immature Granulocyte Absolute 0.03 K/mm3 (0.00-0.031); Immature Granulocyte Percent A 0.5 % (0-0.5); Lymphocytes Absolute Auto 1.06 K/mm3 (0.9-3.2); Lymphocytes Percent Auto 16.2 % (18.3-44.2); Mean Corpuscular HGB Conc 30.6 g/dl (32-36); Mean Corpuscular Hemoglobin 28.6 pg (26-34); Mean Corpuscular Volume 93.3 fl (80-100); Mean Platelet Volume 10.3 fl (7.4-10.4); Monocytes Absolute Auto 0.8 K/mm3 (0.1-0.6); Monocytes Percent Auto 12.7 % (2.6-8.5); Neutrophils Absolute Auto 4.5 K/mm3 (1.3-6.7); Neutrophils Percent Auto 67.8 % (45.5-73.1); Platelet Count Result 247 k/mm3 (150-375); Red Blood Count 3.15 M/mm3 (4.2-5.4); Red Cell Distribution Width 20.9 % (11.5-14.5); White Blood Count 6.6 K/mm3 (4.5-10.0)
[2023-05-01 05:14] LABS: Alanine Aminotransferase 15 U/L (6-35); Albumin Level 2.8 g/dL (3.5-5.1); Alkaline Phosphatase 173 U/L (38-126); Anion Gap 9 mmol/L (8-16); Aspartate Amino Transferase 59 U/L (14-36); Bilirubin,Total 4.7 mg/dL (0.2-1.3); Blood Urea Nitrogen 2 mg/dL (7-17); Calcium 8.1 mg/dL (8.4-10.2); Carbon Dioxide 22 mmol/L (22-30); Chloride 104 mmol/L (98-107); Estimated CRCL calculation 139 ml/min; Estimated Glomerular Filt Rate > 60; Glucose 117 mg/dL (65-110); Magnesium 1.8 mg/dL (1.6-2.3); Phosphorus 1.8 mg/dL (2.5-4.5); Potassium 3.4 mmol/L (3.4-5.0); Sodium 135 mmol/L (137-145)
[2023-05-01] MEDS: SUCRALFATE SUSP 100 MG/ML 10 ML UDC 1000 MG PO ×4 (06:11→22:00)
[2023-05-01] MEDS: chlordiazePOXIDE (*CRX) 25 MG CAPSULE PO (06:11)
[2023-05-01] MEDS: SPIRONOLACTONE 50 MG TABLET PO (10:31)
[2023-05-01] MEDS: FOLIC ACID 1 MG TABLET PO (10:31)
[2023-05-01] MEDS: FUROSEMIDE 20 MG TABLET PO (10:31)
[2023-05-01] MEDS: THIAMINE HCL 100 MG TABLET PO (10:31)
[2023-05-01] MEDS: PANTOPRAZOLE 40 MG TABLET PO ×2 (10:31→21:01)
[2023-05-01] MEDS: MORPHINE SULFATE (*CRX) 2 MG/ML INJ 1 MG IV PUSH (10:37)
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
[2023-05-01 11:30] LABS: Glucose Point of Care 92 mg/dl (65-105)
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
[2023-05-01 16:23] LABS: Glucose Point of Care 97 mg/dl (65-105)
[2023-05-01 18:28] LABS: Glucose Point of Care 136 mg/dl (65-105)
[2023-05-01] MEDS: traMADol HCL (*CRX) 50 MG TABLET 100 MG PO (21:01)
[2023-05-02] VITALS (9 sets, daily range): BP systolic 96–103; BP diastolic 57–60; PULSE 84–103; RESP 16–20; TEMP 36.3–37.1; O2SAT 94–98
[2023-05-02 00:08] LABS: Glucose Point of Care 91 mg/dl (65-105)
[2023-05-02 05:23] LABS: Basophils Absolute Auto 0.1 K/mm3 (0.0-0.1); Basophils Percent Auto 1.4 % (0.2-1.2); Eosinophils Absolute Auto 0.1 K/mm3 (0-0.3); Eosinophils Percent Auto 1.3 % (0-4.4); Hematocrit 27.9 % (37.0-47.0); Hemoglobin 8.5 g/dL (12.0-15.0); Immature Granulocyte Absolute 0.03 K/mm3 (0.00-0.031); Immature Granulocyte Percent A 0.4 % (0-0.5); Lymphocytes Absolute Auto 1.17 K/mm3 (0.9-3.2); Lymphocytes Percent Auto 16.7 % (18.3-44.2); Mean Corpuscular HGB Conc 30.5 g/dl (32-36); Mean Corpuscular Hemoglobin 28.1 pg (26-34); Mean Corpuscular Volume 92.4 fl (80-100); Mean Platelet Volume 10.2 fl (7.4-10.4); Monocytes Absolute Auto 0.9 K/mm3 (0.1-0.6); Monocytes Percent Auto 12.4 % (2.6-8.5); Neutrophils Absolute Auto 4.8 K/mm3 (1.3-6.7); Neutrophils Percent Auto 67.8 % (45.5-73.1); Platelet Count Result 285 k/mm3 (150-375); Red Blood Count 3.02 M/mm3 (4.2-5.4)
[2023-05-02 05:40] LABS: Alanine Aminotransferase 13 U/L (6-35); Albumin Level 2.6 g/dL (3.5-5.1); Alkaline Phosphatase 164 U/L (38-126); Anion Gap 7 mmol/L (8-16); Aspartate Amino Transferase 64 U/L (14-36); Bilirubin,Total 4.5 mg/dL (0.2-1.3); Blood Urea Nitrogen 3 mg/dL (7-17); Calcium 8.2 mg/dL (8.4-10.2); Carbon Dioxide 23 mmol/L (22-30); Chloride 104 mmol/L (98-107); Estimated CRCL calculation 139 ml/min; Estimated Glomerular Filt Rate > 60; Glucose 82 mg/dL (65-110); Magnesium 1.6 mg/dL (1.6-2.3); Phosphorus 2.1 mg/dL (2.5-4.5); Potassium 3.5 mmol/L (3.4-5.0); Sodium 134 mmol/L (137-145)
[2023-05-02] MEDS: SUCRALFATE SUSP 100 MG/ML 10 ML UDC 1000 MG PO ×2 (06:30→11:01)
[2023-05-02] MEDS: MORPHINE SULFATE (*CRX) 2 MG/ML INJ 1 MG IV PUSH (06:30)
--- NOTE | 2023-05-02 08:14 | PCPTNOTE ---
attempted PT eval 815- pt sitting in chair and eating, refused PT at this time.
[2023-05-02] MEDS: PANTOPRAZOLE 40 MG TABLET PO (09:14)
[2023-05-02] MEDS: FOLIC ACID 1 MG TABLET PO (09:14)
[2023-05-02] MEDS: THIAMINE HCL 100 MG TABLET PO (09:14)
[2023-05-02] MEDS: FUROSEMIDE 20 MG TABLET PO (09:14)
[2023-05-02] MEDS: SPIRONOLACTONE 50 MG TABLET PO (09:14)
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
[2023-05-02 11:34] LABS: Glucose Point of Care 95 mg/dl (65-105)
--- NOTE | 2023-05-02 13:10 | PCNFU ---
Nutrition Follow-Up Complete: Inadequate oral intake related to social environmental factor, loss of appetite as evidenced by report of poor intake and weight loss. Improve PO intake when diet is advanced - Progressing overall Goal: Pt current nutrition is Regular diet, 2 g Na. Intakes 75-100%. Ensure Compact BID for additional 220 kcal and 9 g protein each. Nutrition recommendation: Continue with current nutrition care plan and orders. Agree with orders Last recorded weight is 70.2 kg. Bowel Motility: +1 BM 05/03/23 Labs Reviewed: Hgb 8.5, Hct 27.9, Alb 2.6, Na 134, BUN 3, Cre 0.4 Meds Noted: Thiamine, folic acid, Lasix, Zofran, protonix Skin: WNL Additional Notes: Refused lunch today. Was sleepy and wanting to go home. Monitor diet advancement, itnakes, weights, labs, plan of care Follow up in 3 days
--- NOTE | 2023-05-02 13:20 | PC.NURSE ---
1313: Pt tearful, taking telemetry monitors off. Pt states There's nothing you can do here that I can't do at home. Pt reports she wants to leave AMA. States I just need my meds. Skidder explained that if there is no further interventions planned at this time, Dr. Thomson can be made aware and discharge may be considered. Pt reports that she called a ride to pick her up. Reports she is agreeable to wait and see if a discharge today is appropriate. Pt refuses to put telemetry back on at this time. 1315: Informed Dr. Thomson of patients intent to leave AMA but willingness to wait for discharge. Advised to follow up with GI to see if discharge is appropriate from their standpoint. 1317: Detailed message left with Dr. Leo.
--- NOTE | 2023-05-02 13:45 | PC.NURSE ---
[place], Account Support Rep, reports patient is unstable with walking to bathroom with walker. When sitting from standing position she falls backwards. Unable to dress self. Reported to Dr. Thomson. Dr. Thomson reports patient may be downgraded to medical status but is unable to discharge at this time due to weakness and inability to ambulate safely without assistance. Pt made aware. Pt requesting AMA paperwork. Reports she has caregivers at home and she does not want to stay.
--- NOTE | 2023-05-02 13:50 | PC.NURSE ---
Pt cleared by Dr. Contreras to discharge. Dr. Thomson made aware.
--- NOTE | 2023-05-02 14:45 | WPDGIPROGNO ---
Progress Note: A&P Assessment and Plan (1) Cirrhosis, alcoholic: Code(s): K70.30 - Alcoholic cirrhosis of liver without ascites Status: Acute Assessment and Plan: decompensated with ascites- no SBP alcoholic hepatitis, prognosis is guarded specially if keeps drinking she lost muscle mass. She says that is going home but wonder about health condition and generalized weakness, risk for falls and probably will drink again. She signed AMA (2) Alcoholic hepatitis: Code(s): K70.10 - Alcoholic hepatitis without ascites Status: Acute Assessment and Plan: bili stable mid 4's ideally will need rehab and then follow-up with hepatology in [facility] since she presented with decompensated cirrhosis (3) Ascites: Code(s): R18.8 - Other ascites Status: Acute Assessment and Plan: no sbp 2g na diet and low dose diuretics (4) Acute blood loss anemia: Code(s): D62 - Acute posthemorrhagic anemia Status: Acute Assessment and Plan: multifactorial had erosive esophagitis on admission ppi (5) Alcoholism: Code(s): F10.20 - Alcohol dependence, uncomplicated Status: Acute Assessment and Plan: on withdrawal precaution (6) Alcohol withdrawal: Code(s): F10.939 - Alcohol use, unspecified with withdrawal, unspecified Status: Acute Subjective Date/time seen: 05/02/23 14:45 Interval history: patient is saying that she is leaving the hospital Review of Systems Review of Systems: All systems reviewed & are unremarkable except as noted in HPI and below Exam Const: General: no acute distress Other: chronically ill appearing HENMT: Face/Nose/Sinus: Normal nares present Eyes: Pupils: Equal, round and reactive pupils present Neck: Neck: supple Resp: Effort & Inspection: normal respiratory effort Auscultation: clear to auscultation bilaterally Cardio: Rate: regular rate Rhythm: regular rhythm GI: Inspection: distended GI Palp: Yes Soft to palpation and No Tenderness to palpation present (GI) Auscultation: normal bowel sounds Other: + fluid wave Skin: Other: spider angioma chest Neuro: Speech: normal speech Other: awake and more alert today Extrem: General: no edema Other: decrease muscular tone Psych: Affect: Anxious affect present Other: flat affect Objective Data Vital Signs Vital Signs: Vital Signs - 24 hr 05/01/23 16:00 05/01/23 16:00 05/01/23 16:00 Temperature 99.1 F Pulse Rate 98 100 Pulse Rate [Monitor] Respiratory Rate 24 H Blood Pressure 104/55 L Pulse Oximetry 92 97 Oxygen Delivery Room Air 05/01/23 18:00 05/01/23 19:56 05/01/23 20:00 Temperature 97.7 F Pulse Rate 101 H 94 94 Pulse Rate [Monitor] Respiratory Rate 18 18 Blood Pressure 102/58 L Pulse Oximetry 93 93 Oxygen Delivery Room Air 05/01/23 23:50 05/02/23 04:00 05/02/23 00:00 Temperature 97.3 F L 97.3 F L Pulse Rate 104 H 90 Pulse Rate [Monitor] 100 Respiratory Rate 16 18 Blood Pressure 100/55 L 102/59 L 102/59 L Pulse Oximetry 97 98 Oxygen Delivery 05/02/23 00:00 05/02/23 04:00 05/02/23 04:00 Temperature Pulse Rate 90 90 Pulse Rate [Monitor] 100 Respiratory Rate 18 18 Blood Pressure 102/59 L Pulse Oximetry 98 98 Oxygen Delivery Room Air Room Air 05/01/23 20:00 05/01/23 22:00 05/02/23 00:00 Temperature Pulse Rate 97 102 H 99 Pulse Rate [Monitor] Respiratory Rate Blood Pressure Pulse Oximetry Oxygen Delivery 05/02/23 02:00 05/02/23 04:00 05/02/23 06:00 Temperature Pulse Rate 93 90 84 Pulse Rate [Monitor] Respiratory Rate Blood Pressure Pulse Oximetry Oxygen Delivery 05/02/23 07:45 05/02/23 11:24 05/02/23 08:00 Temperature 98.1 F 98.7 F Pulse Rate 94 96 97 Pulse Rate [Monitor] Respiratory Rate 20 16 Blood Pressure 103/57 L 96/60 L Pulse Oximetry 98 94 Oxygen Delivery
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
== END 2023-05-02 15:15 | disposition left against medical advice (07) | DRG 280 ==
LOC: ANHED 10:47 → ANHIMU 13:47 → ANH3MED 04-26 17:47 → ANHIMU 04-26 18:14 → ANH3MED 04-26 18:15 → ANHIMU 04-28 07:53
PROVIDERS: Internal Medicine; Internal Medicine Gastroenterology; Physician Assistant; Student in an Organized Health Care Education/Training Program; Admitting Provider Hospitalist; Emergency Provider Emergency Medicine; PCP Internal Medicine Gastroenterology; Visit Provider Hospitalist
PROC: 0DJ08ZZ Inspection of Upper Intestinal Tract, Via Natural or Artificial Opening Endoscopic (ICD-10-PCS; CPT 43235; principal; 2023-04-24 08:00)
DX: K70.31 Alcoholic cirrhosis of liver with ascites (principal); K22.11 Ulcer of esophagus with bleeding; F10.239 Alcohol dependence with withdrawal, unspecified; F10.229 Alcohol dependence with intoxication, unspecified; K70.11 Alcoholic hepatitis with ascites; G25.2 Other specified forms of tremor; D62 Acute posthemorrhagic anemia; E88.89 Other specified metabolic disorders; K76.6 Portal hypertension; K29.70 Gastritis, unspecified, without bleeding; I47.10 Supraventricular tachycardia, unspecified; F41.9 Anxiety disorder, unspecified; F32.A Depression, unspecified; E87.6 Hypokalemia; K21.00 Gastro-esophageal reflux disease with esophagitis, without bleeding; E16.2 Hypoglycemia, unspecified; F17.210 Nicotine dependence, cigarettes, uncomplicated; E86.0 Dehydration; S49.81XA Other specified injuries of right shoulder and upper arm, initial encounter; V87.7XXA Person injured in collision between other specified motor vehicles (traffic), initial encounter
CPT/HCPCS: 36415; 36430; 49083; 70450; 71046; 71260; 72125; 73030; 73502; 74177; 76775; 80048; 80053; 80307; 81001; 82010; 82042; 82140; 82550; 82607; 82728; 82746; 82948; 83540; 83550; 83605; 83690; 83735; 84100; 84425; 84443; 85014; 85018; 85025; 85027; 85049; 85610; 85730; 86850; 86900; 86901; 86920; 86923; 87070; 87075; 87205; 89051; 93005; 96361; 96365; 96366; 96367; 96368; 96375; 97165; 97530; 97535; 99285; A9270; C9113; G0378; G0379; J0153; J0282; J0612; J0613; J1956; J2060; J2270; J2354; J2405; J3411; J3475; J3480; J7030; J7040; J7050; J7120; L0140; P9016; P9047; Q9967

== ENCOUNTER 2023-05-04 13:39 | Inpatient (IN) | payer OTHER, SELFPAY ==
[2023-05-04] VITALS (15 sets, daily range): BP systolic 94–115; BP diastolic 55–77; PULSE 88–109; RESP 17–30; TEMP 36.6; O2SAT 90–100
--- NOTE | ~2023-05-04 | US_ITS ---
EXAMINATION: US paracentesis abd w/image DATE: 05/05/2023 13:51 INDICATION: Ascites. TECHNIQUE: The procedure and its risks and benefits were discussed with the patient. Potential risks discussed included bleeding and infection. The skin was prepped and draped in sterile fashion. 1% lid ocaine was used for local anesthesia. Under ultrasound guidance, a 5 Fr catheter with trochar was adv anced into the ascites in the left lower quadrant. Fluid was aspirated into vacuum bottles. The jennyfer ter was removed, and a dressing was applied. There were no immediate complications. FINDINGS: Ultrasound images demonstrate ascites and the catheter within the fluid. IMPRESSION: 1. Successful ultrasound-guided paracentesis yielding 4250 mL of clear yellow fluid. Reviewed, dictated and finalized at location A. SELLER
--- NOTE | ~2023-05-04 | CT_ITS ---
EXAMINATION: CT brain wo con DATE: 05/10/2023 17:23 INDICATION: change in mental status . TECHNIQUE: Computed tomography (CT) of the head was performed without intravenous contrast. The mA wa s adjusted according to patient size. Iterative reconstruction technique was employed. The dose-lengt h product was 605.33 mGy-cm. COMPARISON: 05/05/2023. FINDINGS: No acute intracranial hemorrhage or extra-axial fluid collection. No hydrocephalus, mass, or herniation. No acute ischemic infarct. Unremarkable dural venous sinus attenuation. No acute osseous abnormality. The aerated spaces are clear. IMPRESSION: No acute intracranial process. Reviewed, dictated and finalized at location K. SUPERVISOR
--- NOTE | ~2023-05-04 | CT_ITS ---
CT of the Abdomen and Pelvis: Indication: Abdominal distention Technique: 2.5 mm axial scans were obtained through the abdomen and pelvis following intravenous adm inistration of 100 cc of Omnipaque 350. Dose reduction technique was used on this scan by utilizing a utomated exposure control and iterative reconstruction technique. The dose-length product (DLP) was 1 019.64 mGy-cm. COMPARISON: 04/23/2023 Findings: Scans through the lung bases are unremarkable. Moderate hiatal hernia present. There is hepatosplenomegaly. Splenorenal varices are present. There is moderate to large amount of ab dominopelvic ascites. Gallbladder wall thickening is likely due to the presence of ascites. The pancr eas, adrenals and kidneys are within normal limits. No evidence of aortic aneurysm. No lymphadenopa thy. No bowel obstruction or bowel wall thickening. There is no evidence to suggest acute appendicitis. Images through the pelvis were performed. Urinary bladder unremarkable. No significant adnexal mass s een. Impression: Probable early cirrhotic change of the liver with associated splenomegaly, splenorenal varices, and m oderate to large amount of abdominopelvic ascites. Hepatosplenomegaly. Moderate hiatal hernia. Gallbladder wall thickening is probably related to the presence of ascites. Reviewed, dictated and finalized at location M. CONDITIONER HELPER Impression: Probable early cirrhotic change of the liver with associated splenomegaly, sple norenal varices, and moderate to large amount of abdominopelvic ascites. Hepatosplenomegaly. Moderate hiatal hernia. Gallbladder wall thickening is probably related to the presence of ascites.
--- NOTE | ~2023-05-04 | XR_ITS ---
Right Shoulder Technique: AP and axillary views were obtained. Clinical History: Pain Findings: No fracture or dislocation is seen. Osseous alignment is anatomic. The glenohumeral and acr omioclavicular joint spaces are preserved. Soft tissues are unremarkable. Impression: Unremarkable right shoulder radiographs. Reviewed, dictated and finalized at [facility]. CARGO GROUND CREW SUPERVISOR Impression: Unremarkable right shoulder radiographs.
--- NOTE | ~2023-05-04 | US_ITS ---
EXAMINATION: US paracentesis abd w/image DATE: 05/09/2023 14:03 INDICATION: Hepatic ascites TECHNIQUE: The procedure and its risks and benefits were discussed with the patient. Potential risks discussed included bleeding and infection. The skin was prepped and draped in sterile fashion. 1% lid ocaine was used for local anesthesia. Under ultrasound guidance, a 5 Fr catheter with trochar was adv anced into the ascites in the right lower quadrant. Fluid was aspirated into vacuum bottles. The cath eter was removed, and a dressing was applied. There were no immediate complications. FINDINGS: Ultrasound images demonstrate ascites and the catheter within the fluid. IMPRESSION: 1. Successful ultrasound-guided paracentesis yielding 2500 mL of dark yellowish fluid. Reviewed, dictated and finalized at location A. K STENOGRAPHER IMPRESSION: 1. Successful ultrasound-guided paracentesis yielding 2500 mL of dark yellowis h fluid.
--- NOTE | ~2023-05-04 | CT_ITS ---
CT Facial Bones Clinical Indication: Left periorbital pain, status post fall Technique: Contiguous axial scans were obtained through the facial bones followed by coronal and sagi ttal reconstructions. Dose reduction technique was used on this scan by utilizing automated exposure control and iterative reconstruction technique. The dose-length product (DLP) was 367.67 mGy-cm. Findings: No fractures are identified. The visualized paranasal sinuses are clear. Intraorbital soft tissues appear normal. Impression: No fracture identified. Reviewed, dictated and finalized at location M. RSING MILL ROLLER Impression: No fracture identified.
--- NOTE | ~2023-05-04 | XR_ITS ---
Portable chest x-ray Comparison: 04/23/2023 Clinical History: Fluid overload Findings: There is minimal bibasilar interstitial prominence. No pleural effusion. Cardiomediastina l silhouette is stable. Bones and soft tissues are unremarkable. Impression: Possible minimal bibasilar interstitial edema versus other interstitial prominence. Reviewed, dictated and finalized at location . LY CHAIN PROGRAM MANAGER Impression: Possible minimal bibasilar interstitial edema versus other interstitial promine nce.
--- NOTE | ~2023-05-04 | CT_ITS ---
Non-contrast Head CT History: Status post fall COMPARISON: 04/23/2023 Technique: Axial non-contrast imaging of the brain was performed. Dose reduction technique was used on this scan by utilizing automated exposure control and iterative reconstruction technique. The dose -length product (DLP) was 605.33 mGy-cm. Findings: There is no evidence of intracranial hemorrhage, mass lesion, or acute infarct. Brain par enchyma appears normal. The ventricles and subarachnoid spaces are normal in size. The calvarium ap pears normal. The visualized paranasal sinuses and mastoid air cells are clear. Impression: No significant abnormality seen. Reviewed, dictated and finalized at location . ER MACHINIST Impression: No significant abnormality seen.
--- NOTE | ~2023-05-04 | XR_ITS ---
EXAMINATION: XR humerus RT DATE: 05/08/2023 12:28 INDICATION: Right shoulder pain post fall TECHNIQUE: Internally and externally rotated views of the right humerus were obtained. COMPARISON: None. FINDINGS: Bone alignment is normal. No fracture. Mild osteoarthritis at the right acromioclavicular joint. Mora ining joint spaces are unremarkable. Peripheral IV at the proximal right forearm. Soft tissues are ot herwise unremarkable. Visualized portion of the right lung is clear. IMPRESSION: 1. Mild right acromioclavicular osteoarthritis. Reviewed, dictated and finalized at location A. [facility] RN
--- NOTE | 2023-05-04 21:54 | PC.NURSE ---
upon bringing this pt back to a room, pt stated I cannot get up, my legs are not moving:. This RN along with another RN assisted pt to wheelchair from waiting room area where pt was seen sleeping. Pt was able to stand and use legs to sit in the wheelchair. Pt was then wheeled into pt room. Pt then stated I was here yesterday and left AMA and shouldn't have . This RN instructed pt to stand and get into the bed. Pt stood and was on the edge of the bed. This RN attempted to help pt scoot into the bed to prevent a fall. Pt then raised voice and stated I am trying, my legs are moving . This RN then helped into the bed, and asked pt to remove sweatsshirt and put gown on to be evaluated.
--- NOTE | 2023-05-04 21:54 | ED.GENADULT ---
HPI - General Adult General Chief complaint: Fall Stated complaint: fall Time Seen by Provider: 05/04/23 21:46 Source: patient Mode of arrival: ambulatory Limitations: no limitations History of Present Illness HPI narrative: This is a 33-year-old female with PMH of cirrhosis who presents to the ED with chief complaint of a fall. Reports she felt very weak, lightheaded today and she fell down to the ground, hitting her head and shoulder. Reports she was just seen in this hospital this week and left AMA. She was here for decompensated alcoholic cirrhosis of the liver with ascites. Patient denies any EtOH or drug use today. Denies fevers, chills, vomiting. Related Data Home Medications Medication Instructions Recorded Confirmed furosemide 20 mg tablet 20 mg PO DAILY 03/01/23 03/01/23 omeprazole 20 mg capsule,delayed 20 mg PO DAILY 03/01/23 03/01/23 release spironolactone 50 mg tablet 50 mg PO DAILY 03/01/23 03/01/23 Allergies Allergy/AdvReac Type Severity Reaction Status Date / Time apple Allergy Anaphylaxis Verified 05/04/23 14:08 Penicillins Allergy Anaphylaxis Verified 05/04/23 14:08 Sulfa (Sulfonamide AdvReac Nausea and Verified 05/04/23 14:08 Antibiotics) Vomiting Review of Systems Review of Systems: All systems as dictated in [facility] Past Medical History Medical History (Updated 05/05/23 @ 03:19 by Benedicto Beebe PA-C) Alcoholic cirrhosis of liver with ascites Alcoholic hepatitis Depression Family History Family History (Updated 03/01/23 @ 15:10 by Bert Lemon DO) Mother Cirrhosis Brain aneurysm Social History Social History (Updated 03/01/23 @ 15:11 by Bert Lemon DO) Social History: last drink alcohol 12/2022. smokes 5cig/day Smoking status: Current every day smoker Tobacco type: cigarettes Alcohol intake: former Substance use: current Substance use type: marijuana Last use: 02/28/23 Lack of Transportation: No Lack of Food: Never True Current Housing: I Have Housing Concerned About Future Housing: No Difficulty Paying Gas/Electric Bills: No Difficulty Paying for Meds: No Currently Unemployed: No Education: High School Diploma/GED Difficulty w/ Childcare or Family Care: No Spiritual care concerns: No Exam Narrative: GENERAL: Well-appearing, well-nourished, and in no acute distress. HEAD: Normocephalic, atraumatic. EYES: PERRLA and EOMI. ENT: Nares clear, no rhinorrhea or epistaxis. Mucous membranes moist. Oropharynx without tonsillar hypertrophy exudate or other lesions. NECK: Supple. No adenopathy or masses. CHEST: No respiratory distress. Clear to auscultation. No wheezes rales or rhonchi. HEART: Regular rate and rhythm. No murmur heard. Normal peripheral pulses. ABDOMEN: Abdominal distention present. soft, nontender, nondistended, normal active bowel sounds. No rigidity or guarding. MSK: Normal range of motion. No edema. SKIN: Jaundice. No rash. NEURO: Alert and oriented x3. No focal deficits. PSYCH: Normal mood and affect. Course Vital Signs Vital signs: Vital Signs Temperature 97.8 F 05/04/23 14:03 Pulse Rate 109 H 05/04/23 14:03 Respiratory Rate 20 05/04/23 14:03 Blood Pressure 111/64 05/04/23 14:03 Pulse Oximetry 99 05/04/23 14:03 Oxygen Delivery Room Air 05/04/23 14:03 Temperature 97.8 F 05/04/23 14:03 Pulse Rate 88 05/05/23 02:01 Respiratory Rate 21 H 05/05/23 02:01 Blood Pressure 115/74 05/05/23 02:01 Pulse Oximetry 100 05/05/23 02:01 Oxygen Delivery Nasal Cannula 05/04/23 22:11 Oxygen Flow Rate 1 05/04/23 22:11 Medical Decision Making [facility] Narrative Medical decision making narrative: This is a 33-year-old female who presents to the ED with chief complaint of generalized weakness and frequent falls. She left AMA this week from the hospital after being admitted for decompensated liver cirrhosis and GI bleed. Vitals today are
[2023-05-04 22:46] LABS: Basophils Absolute Auto 0.2 K/mm3 (0.0-0.1); Basophils Percent Auto 1.3 % (0.2-1.2); Eosinophils Absolute Auto 0.1 K/mm3 (0-0.3); Hematocrit 32.7 % (37.0-47.0); Hemoglobin 9.9 g/dL (12.0-15.0); Immature Granulocyte Absolute 0.07 K/mm3 (0.00-0.031); Immature Granulocyte Percent A 0.5 % (0-0.5); Lymphocytes Absolute Auto 2.28 K/mm3 (0.9-3.2); Lymphocytes Percent Auto 16.2 % (18.3-44.2); Mean Corpuscular HGB Conc 30.3 g/dl (32-36); Mean Corpuscular Volume 92.4 fl (80-100); Mean Platelet Volume 9.7 fl (7.4-10.4); Monocytes Absolute Auto 0.8 K/mm3 (0.1-0.6); Monocytes Percent Auto 5.5 % (2.6-8.5); Neutrophils Absolute Auto 10.6 K/mm3 (1.3-6.7); Neutrophils Percent Auto 75.5 % (45.5-73.1); Platelet Count Result 461 k/mm3 (150-375); Red Blood Count 3.54 M/mm3 (4.2-5.4); White Blood Count 14.1 K/mm3 (4.5-10.0)
[2023-05-04 23:01] LABS: INR 1.4; Prothrombin Time 17.5 Seconds (11.1-14.7)
[2023-05-04 23:02] LABS: Partial Thromboplastin Time 44.8 SECONDS (22.3-36.8)
[2023-05-04 23:03] LABS: Alanine Aminotransferase 16 U/L (6-35); Albumin Level 3.5 g/dL (3.5-5.1); Alkaline Phosphatase 230 U/L (38-126); Anion Gap 10 mmol/L (8-16); Aspartate Amino Transferase 86 U/L (14-36); Bilirubin,Total 3.7 mg/dL (0.2-1.3); Blood Urea Nitrogen 6 mg/dL (7-17); CRP 2.3 mg/dL (<1.0); Calcium 8.7 mg/dL (8.4-10.2); Carbon Dioxide 25 mmol/L (22-30); Chloride 104 mmol/L (98-107); Estimated CRCL calculation 98 ml/min; Estimated Glomerular Filt Rate > 60; Glucose 92 mg/dL (65-110); Potassium 3.7 mmol/L (3.4-5.0); Sodium 139 mmol/L (137-145)
[2023-05-04 23:08] LABS: NT Pro B Type Natriuretic Pept 133 pg/mL (19.9-100)
[2023-05-05] VITALS (29 sets, daily range): BP systolic 89–125; BP diastolic 51–107; PULSE 80–102; RESP 14–28; TEMP 36–36.7; O2SAT 92–100; BMI 30.4
[2023-05-05 00:40] LABS: Beta HCG Quantitative < 2.39 mIU/ML
--- NOTE | 2023-05-05 01:08 | ECG_ITS ---
Measurements Intervals [place] Rate: 86 P: 53 MT: 172 QRS: 3 QRSD: 94 T: 40 QT: 419 QTc: 502 Interpretive Statements SINUS RHYTHM LOW-VOLTAGE BORDERLINE ECG COMPARED TO ECG 03/01/2023 01:14:23 NO SIGNIFICANT CHANGE Electronically Signed On 05-05-2023 15:06:59 TECHNOLOGY RESOURCE TEACHER by Mata Rodríguez M.D.
[2023-05-05 01:15] LABS: Appearance Urine Cloudy (Clear); Bacteria Urine 1+ /hpf; Bilirubin Urine 2+ (Negative); Blood Urine Negative (Negative); Color Urine Dark Yellow (Yellow); Glucose Urine UA Negative (Negative); Ketones Urine Trace mg/dL (Negative); Leukocyte Esterase Ur Trace LEU/UL (Negative); Nitrate Urine Negative (Negative); Non Pathogenic Casts 0-2; Protein Urine Negative (Negative); RBC Urine 0-2 /hpf (0-2); Specific Grav Ur 1.021 (1.001-1.035); Squamous Epithelial Cell Urine Moderate /hpf (Few); WBC Urine 0-5 /hpf
[2023-05-05 01:20] LABS: Add Urine Microscopic? YES
[2023-05-05] MEDS: THIAMINE 500 MG/NS 100 ML 500 MG/100 ML BAG 200 MG IVPB ×2 (03:19→12:13)
--- NOTE | 2023-05-05 04:15 | ADMGEN ---
This patient, Karina Beasley, was admitted to [facility] Surg Room 333-01. Patient/family oriented to hospital policies and general routines including ID bracelet, bed and alarms, visiting hours, pain management, procedures, bathroom and other care routines, personal items, smoking policy, room service/diet, and visiting hours. Information on how to activate the Rapid Response Team has been discussed. Patient/Family are encouraged to report perceived risks to care and to ask questions if they do not understand what they are told or what they should do.
[2023-05-05 04:33] LABS: Ethanol < 10 mg/dL (<10)
[2023-05-05 05:38] LABS: Folic Acid 15.8 ng/mL (2.76->20)
[2023-05-05] MEDS: chlordiazePOXIDE (*CRX) 25 MG CAPSULE 50 MG PO ×4 (06:25→23:41)
[2023-05-05] MEDS: ALBUMIN HUMAN 25% 25 GM/100 ML 100 ML IVPB (08:28)
[2023-05-05] MEDS: LORazepam INJ (*CRX) 2 MG/ML VIAL IV PUSH (08:35)
[2023-05-05 08:53] LABS: Hematocrit 31.9 % (37.0-47.0); Hemoglobin 9.5 g/dL (12.0-15.0); Mean Corpuscular HGB Conc 29.8 g/dl (32-36); Mean Corpuscular Hemoglobin 28.1 pg (26-34); Mean Corpuscular Volume 94.4 fl (80-100); Mean Platelet Volume 10.3 fl (7.4-10.4); Platelet Count Result 413 k/mm3 (150-375); Red Blood Count 3.38 M/mm3 (4.2-5.4); Red Cell Distribution Width 21.2 % (11.5-14.5); White Blood Count 12.7 K/mm3 (4.5-10.0)
[2023-05-05 10:34] LABS: Anion Gap 10 mmol/L (8-16); Blood Urea Nitrogen 5 mg/dL (7-17); Calcium 8.8 mg/dL (8.4-10.2); Carbon Dioxide 22 mmol/L (22-30); Chloride 107 mmol/L (98-107); Estimated CRCL calculation 105 ml/min; Estimated Glomerular Filt Rate > 60; Glucose 74 mg/dL (65-110); Potassium 3.7 mmol/L (3.4-5.0); Sodium 139 mmol/L (137-145)
--- NOTE | 2023-05-05 10:50 | PM.IMHP ---
H&P: HPI History of Present Illness Date/Time: 05/05/23 10:50 Chief Complaint: fall Narrative: Patient is a 33 yo female with PMH of cirrhosis admitted from the ED with chief complaint of a fall. Reports she was here in this hospital earlier and left AMA using a walker. She was here for decompensated alcoholic cirrhosis of the liver with ascites. She returned home where she felt very weak, lightheaded and she fell down to the ground, hitting her head and shoulder. Patient denies any EtOH or drug use on admission, reporting her last alcohol consumption was one week ago. Denies fevers, chills, vomiting. She denies LOC or WASSERMAN. CIWA was 14 this morning, she has PRN and Librium scheduled. She is tearful at the bedside this morning, reporting non-specific pain and aches all throughout her body. Some mild, non-guarding tenderness on palpation of abdomen, especially on her RUQ. She reports she was been swollen all over, especially ankles and legs. She previously had a UTI that she reports was untreated by her PCP and spread to sepsis. UA culture pending, but will treat empirically as bacteria was present given her history. Second thiamine bag will infuse today, continue CIWA monitoring. She is A&O x3 this morning. Care coordination following for discharge planning. Will consider paracentesis for comfort and diagnostics as she is tender and appears uncomfortable. Review of Systems Review of Systems: All systems reviewed & are unremarkable except as noted in HPI and below PMFSH Past Medical History Medical History (Updated 05/05/23 @ 11:02 by Liliana Perera APRN) Alcoholic cirrhosis of liver with ascites Alcoholic hepatitis Depression Family History Family History Mother Cirrhosis Brain aneurysm Social History Social History (Updated 03/01/23 @ 15:11 by Bert Lemon DO) Social History: last drink alcohol 12/2022. smokes 5cig/day Smoking packs per day: 0.25 Smoking cigarettes per day: 5.0 Years smoked: 20 Smoking pack-years: 5.00 Smoking status: Current every day smoker Tobacco type: cigarettes Alcohol intake: former Substance use: current Substance use type: marijuana Last use: 05/04/23 Lack of Transportation: No Lack of Food: Often True Current Housing: I Have Housing Concerned About Future Housing: YES Difficulty Paying Gas/Electric Bills: No Difficulty Paying for Meds: No Currently Unemployed: No Education: High School Diploma/GED Difficulty w/ Childcare or Family Care: No Spiritual care concerns: No Meds Home Medications and Allergies Home Medications Medication Instructions Recorded Confirmed Type furosemide 20 mg tablet 20 mg PO DAILY 03/01/23 05/05/23 History omeprazole 20 mg capsule,delayed 20 mg PO DAILY 03/01/23 05/05/23 History release spironolactone 50 mg tablet 50 mg PO DAILY 03/01/23 05/05/23 History fluoxetine 20 mg capsule 20 mg PO DAILY #30 caps 03/08/23 05/05/23 Rx Allergies Allergy/AdvReac Type Severity Reaction Status Date / Time apple Allergy Anaphylaxis Verified 05/04/23 14:08 Penicillins Allergy Anaphylaxis Verified 05/04/23 14:08 Sulfa (Sulfonamide AdvReac Nausea and Verified 05/04/23 14:08 Antibiotics) Vomiting Vital Signs Vital Signs - 24 hr 05/04/23 14:03 05/04/23 22:04 05/04/23 22:11 Temperature 97.8 F Pulse Rate 109 H 105 H Pulse Rate [Apical] Respiratory Rate 20 30 H Blood Pressure 111/64 100/67 Pulse Oximetry 99 90 99 Oxygen Delivery Room Air Nasal Cannula Oxygen Flow Rate 1 05/04/23 22:00 05/04/23 22:01 05/04/23 22:20 Temperature Pulse Rate 88 88 93 Pulse Rate [Apical] Respiratory Rate 28 H 26 H 17 Blood Pressure 100/67 Pulse Oximetry 99 Oxygen Delivery Oxygen Flow Rate 05/04/23 22:30 05/04/23 22:31 05/04/23 22:48 Temperature Pulse Rate 95 96 93 Pulse Rate [Apical] Respiratory Rate 25 H 22 H
[2023-05-05 11:33] LABS: Alanine Aminotransferase 15 U/L (6-35); Albumin Level 3.2 g/dL (3.5-5.1); Alkaline Phosphatase 210 U/L (38-126); Aspartate Amino Transferase 81 U/L (14-36); Bilirubin Direct 0.1 mg/dL (0-0.3); Bilirubin,Total 3.8 mg/dL (0.2-1.3)
[2023-05-05] MEDS: PANTOPRAZOLE 40 MG TABLET PO (12:14)
[2023-05-05] MEDS: MORPHINE SULFATE (*CRX) 2 MG/ML INJ IV PUSH ×2 (12:16→22:09)
--- NOTE | 2023-05-05 13:18 | PCPTNOTE ---
Spoke with hospitalist Liliana Perera APRN who agreed with removal of bedrest orders at this time. Will make RN aware.
--- NOTE | 2023-05-05 13:29 | PCPTNOTE ---
Attempted PT evaluation, pt off the unit for procedure. Will follow.
--- NOTE | 2023-05-05 13:36 | PCOTNOTE ---
Attempted OT evaluation, pt off the unit for procedure. Will follow.
[2023-05-05 14:30] LABS: Appearance Peritoneal Fluid Cloudy (Clear); Color Peritoneal Fluid Yellow (Colorless); Lymphocytes Peritoneal Fluid 17 %; Neutrophils Peritoneal Fluid 2 % (0-25); Source Peritoneal Fluid Peritoneal Fluid
[2023-05-05 14:31] LABS: Macrophages Peritoneal Fluid 29 %; Mesothelial Cells Peritoneal Fluid 6 %; Monocytes Peritoneal Fluid 46 %
[2023-05-05 14:34] LABS: Nucleated Cells Peritoneal Flu 91 /uL (0-500); RBC Peritoneal Fluid < 2000 /uL (0-100000)
[2023-05-05] MEDS: levoFLOXacin 750 MG/D5W 150 ML 750 MG/150 ML BAG 100 MG IVPB (17:26)
[2023-05-06] MEDS: chlordiazePOXIDE (*CRX) 25 MG CAPSULE 50 MG PO ×4 (05:09→23:35)
[2023-05-06 06:34] LABS: Basophils Absolute Auto 0.2 K/mm3 (0.0-0.1); Basophils Percent Auto 1.4 % (0.2-1.2); Eosinophils Absolute Auto 0.2 K/mm3 (0-0.3); Eosinophils Percent Auto 1.5 % (0-4.4); Hematocrit 24.7 % (37.0-47.0); Hemoglobin 7.4 g/dL (12.0-15.0); Immature Granulocyte Absolute 0.06 K/mm3 (0.00-0.031); Immature Granulocyte Percent A 0.5 % (0-0.5); Lymphocytes Absolute Auto 1.71 K/mm3 (0.9-3.2); Lymphocytes Percent Auto 14.7 % (18.3-44.2); Mean Corpuscular Hemoglobin 27.6 pg (26-34); Mean Corpuscular Volume 92.2 fl (80-100); Mean Platelet Volume 9.8 fl (7.4-10.4); Monocytes Absolute Auto 0.9 K/mm3 (0.1-0.6); Monocytes Percent Auto 7.7 % (2.6-8.5); Neutrophils Absolute Auto 8.6 K/mm3 (1.3-6.7); Neutrophils Percent Auto 74.2 % (45.5-73.1); Platelet Count Result 364 k/mm3 (150-375); Red Blood Count 2.68 M/mm3 (4.2-5.4); Red Cell Distribution Width 20.9 % (11.5-14.5); White Blood Count 11.6 K/mm3 (4.5-10.0)
[2023-05-06 06:54] LABS: Partial Thromboplastin Time 44.2 SECONDS (22.3-36.8)
[2023-05-06 07:12] LABS: Alanine Aminotransferase 14 U/L (6-35); Albumin Level 2.6 g/dL (3.5-5.1); Alkaline Phosphatase 146 U/L (38-126); Anion Gap 10 mmol/L (8-16); Aspartate Amino Transferase 57 U/L (14-36); Bilirubin Direct 0.2 mg/dL (0-0.3); Bilirubin,Total 3.2 mg/dL (0.2-1.3); Blood Urea Nitrogen 4 mg/dL (7-17); Calcium 8.3 mg/dL (8.4-10.2); Carbon Dioxide 22 mmol/L (22-30); Chloride 105 mmol/L (98-107); Estimated CRCL calculation 121 ml/min; Estimated Glomerular Filt Rate > 60; Glucose 96 mg/dL (65-110); Potassium 4.1 mmol/L (3.4-5.0); Sodium 137 mmol/L (137-145)
--- NOTE | 2023-05-06 08:30 | PM.IMPN ---
Progress Note: A&P Assessment and Plan (1) Alcoholic cirrhosis of liver with ascites: Code(s): K70.31 - Alcoholic cirrhosis of liver with ascites Status: Chronic Assessment and Plan: CT abdomen and pelvis with IV contrast: Impression: 1. Cirrhosis and stigmata of portal hypertension including moderate ascites. 2. Small-bowel wall thickening may represent portal hypertensive enteropathy. Fluid-filled loops of small bowel suggesting ileus or enteritis. 3. Moderate hiatal hernia. 4. Anasarca CIWA Q4 thiamine bag x3 will order diagnostic paracentesis due to elevated WBC 12.4 and abdominal discomfort Librium and PRN supportive care H&H stable, continue to monitor CBC and electrolytes [place] on stopping drinking Needs to follow with a liver specialist 05/06: Checking an ammonia tomorrow. She is A&Ox4 but drowsy with delayed responses. May need lactulose. Had 2.4 L removed 05/05 with paracentesis. Some improvement with breathing and abdominal pain. Switched antibiotics to Rocephin for potential SBP as this is best recommended for SBP. She has portal HTN seen on imaging. She may need started on beta florencia therapy for esophageal varice prophylaxis should her blood pressure improve with TID midorine. UptoDate recommends starting with coreg 3.125 mg PO BID. (2) UTI (urinary tract infection): Qualifiers: Hematuria presence: with hematuria Urinary tract infection type: acute cystitis Qualified Code(s): N30.01 - Acute cystitis with hematuria Code(s): N39.0 - Urinary tract infection, site not specified Status: Acute Assessment and Plan: elevated WBC 12.4 today UA showed bacteria, previous sepsis post UTI untreated started on Levaquin UA culture pending 05/06: Switched to rocephin. Culture still pending. Leukocytosis with minimal decrease. (3) Generalized weakness: Code(s): R53.1 - Weakness Status: Acute Assessment and Plan: CT brain normal. CT facial bones normal care coordination consulted for d/c planning (4) Falls frequently: Code(s): R29.6 - Repeated falls Status: Acute Assessment and Plan: CT brain normal. CT facial bones normal Shoulder x-ray also appears unchanged. previously went home on walker likely due to decompensating cirrhosis care coordination to help with d/c planning Plan Feeding: regular diet Analgesia: tylenol and tramadol Thromboembolic prophylaxis: lovenox Ulcer prophylaxis: PPI Glycemic control: NA Bowel regimen: NA Lines: PIV Antibiotics: Rocephin Disposition: Home when medically ready. Subjective Date/time seen: 05/06/23 08:30 Interval history: HPI obtained from the chart, Patient is a 33 yo female with PMH of cirrhosis admitted from the ED with chief complaint of a fall. Reports she was here in this hospital earlier and left AMA using a walker. She was here for decompensated alcoholic cirrhosis of the liver with ascites. She returned home where she felt very weak, lightheaded and she fell down to the ground, hitting her head and shoulder. Patient denies any EtOH or drug use on admission, reporting her last alcohol consumption was one week ago.? Denies fevers, chills, vomiting. She denies LOC or WASSERMAN. 05/05: CIWA was 14 this morning, she has PRN and Librium scheduled. She is tearful at the bedside this morning, reporting non-specific pain and aches all throughout her body. Some mild, non-guarding tenderness on palpation of abdomen, especially on her RUQ. She reports she was been swollen all over, especially ankles and legs. She previously had a UTI that she reports was untreated by her PCP and spread to sepsis. UA culture pending, but will treat empirically as bacteria was present given her history. Second thiamine bag will infuse today, continue CIWA monitoring. She is A&O x3 this morning. Care coordination following for discharge planning. Will consider paracentesis for comf
[2023-05-06 09:12] VITALS: BP 101/48
[2023-05-06] MEDS: FLUoxetine HCL 20 MG CAPSULE PO (09:13)
[2023-05-06] MEDS: PANTOPRAZOLE 40 MG TABLET PO (09:13)
[2023-05-06] MEDS: SPIRONOLACTONE 50 MG TABLET PO (09:13)
[2023-05-06] MEDS: MIDODRINE HCL 2.5 MG TABLET 5 MG PO ×3 (09:13→17:47)
[2023-05-06] MEDS: FUROSEMIDE 20 MG TABLET PO (09:13)
[2023-05-06] MEDS: ENOXAPARIN 40 MG/0.4 ML SYRINGE SUB-Q (09:22)
[2023-05-06] MEDS: traMADol HCL (*CRX) 50 MG TABLET PO ×3 (11:47→23:36)
[2023-05-06 13:36] LABS: Ammonia 28 umol/L (9-30)
[2023-05-06 17:25] LABS: Glucose Point of Care 117 mg/dl (65-105)
[2023-05-06 20:00] VITALS: PULSE 90
[2023-05-06 22:00] VITALS: BP 98/52; PULSE 90; RESP 20; TEMP 36.9; O2SAT 96
[2023-05-07] VITALS: PULSE 84
[2023-05-07 04:00] VITALS: PULSE 90
[2023-05-07] MEDS: traMADol HCL (*CRX) 50 MG TABLET PO (05:58)
[2023-05-07] MEDS: chlordiazePOXIDE (*CRX) 25 MG CAPSULE 50 MG PO ×4 (05:58→23:14)
[2023-05-07 06:09] LABS: Basophils Absolute Auto 0.2 K/mm3 (0.0-0.1); Basophils Percent Auto 1.2 % (0.2-1.2); Eosinophils Absolute Auto 0.2 K/mm3 (0-0.3); Eosinophils Percent Auto 1.3 % (0-4.4); Hematocrit 27.8 % (37.0-47.0); Hemoglobin 8.5 g/dL (12.0-15.0); Immature Granulocyte Absolute 0.07 K/mm3 (0.00-0.031); Immature Granulocyte Percent A 0.4 % (0-0.5); Lymphocytes Absolute Auto 2.17 K/mm3 (0.9-3.2); Lymphocytes Percent Auto 13.9 % (18.3-44.2); Mean Corpuscular HGB Conc 30.6 g/dl (32-36); Mean Corpuscular Hemoglobin 27.9 pg (26-34); Mean Corpuscular Volume 91.1 fl (80-100); Mean Platelet Volume 9.7 fl (7.4-10.4); Monocytes Absolute Auto 0.8 K/mm3 (0.1-0.6); Monocytes Percent Auto 5.3 % (2.6-8.5); Neutrophils Absolute Auto 12.2 K/mm3 (1.3-6.7); Neutrophils Percent Auto 77.9 % (45.5-73.1); Platelet Count Result 430 k/mm3 (150-375); Red Blood Count 3.05 M/mm3 (4.2-5.4); Red Cell Distribution Width 21.2 % (11.5-14.5); White Blood Count 15.6 K/mm3 (4.5-10.0)
[2023-05-07 06:22] LABS: Alanine Aminotransferase 14 U/L (6-35); Albumin Level 2.8 g/dL (3.5-5.1); Alkaline Phosphatase 162 U/L (38-126); Anion Gap 9 mmol/L (8-16); Aspartate Amino Transferase 64 U/L (14-36); Bilirubin,Total 3.4 mg/dL (0.2-1.3); Blood Urea Nitrogen 6 mg/dL (7-17); Calcium 8.4 mg/dL (8.4-10.2); Carbon Dioxide 24 mmol/L (22-30); Chloride 105 mmol/L (98-107); Estimated CRCL calculation 121 ml/min; Estimated Glomerular Filt Rate > 60; Glucose 120 mg/dL (65-110); Magnesium 1.7 mg/dL (1.6-2.3); Potassium 3.8 mmol/L (3.4-5.0); Sodium 138 mmol/L (137-145)
[2023-05-07] MEDS: FLUoxetine HCL 20 MG CAPSULE PO (08:45)
[2023-05-07] MEDS: SPIRONOLACTONE 50 MG TABLET PO (08:45)
[2023-05-07] MEDS: ENOXAPARIN 40 MG/0.4 ML SYRINGE SUB-Q (08:45)
[2023-05-07] MEDS: MIDODRINE HCL 2.5 MG TABLET 5 MG PO ×3 (08:45→17:05)
[2023-05-07] MEDS: PANTOPRAZOLE 40 MG TABLET PO (08:45)
[2023-05-07] MEDS: FUROSEMIDE 20 MG TABLET PO (08:45)
[2023-05-07] MEDS: THIAMINE 500 MG/NS 100 ML 500 MG/100 ML BAG 200 MG IVPB (10:20)
[2023-05-07 14:00] VITALS: BP 104/73; PULSE 96; RESP 16; TEMP 36.4; O2SAT 100
--- NOTE | 2023-05-07 14:34 | PM.IMPN ---
Progress Note: A&P Assessment and Plan (1) Alcoholic cirrhosis of liver with ascites: Code(s): K70.31 - Alcoholic cirrhosis of liver with ascites Status: Chronic Assessment and Plan: CT abdomen and pelvis with IV contrast: Impression: 1. Cirrhosis and stigmata of portal hypertension including moderate ascites. 2. Small-bowel wall thickening may represent portal hypertensive enteropathy. Fluid-filled loops of small bowel suggesting ileus or enteritis. 3. Moderate hiatal hernia. 4. Anasarca CIWA Q4 thiamine bag x3 diagnostic paracentesis removed 2.4 L on 05/05, may need repeat prior to d/c ammonia WNL Librium and PRN supportive care H&H stable, continue to monitor CBC and electrolytes [place] on stopping drinking Needs to follow with a liver specialist continue Rocephin for potential SBP coverage She may need started on beta florencia therapy for esophageal varice prophylaxis should her blood pressure improve with TID midorine. UptoDate recommends starting with coreg 3.125 mg PO BID. (2) UTI (urinary tract infection): Qualifiers: Hematuria presence: with hematuria Urinary tract infection type: acute cystitis Qualified Code(s): N30.01 - Acute cystitis with hematuria Code(s): N39.0 - Urinary tract infection, site not specified Status: Acute Assessment and Plan: UA showed bacteria, previous sepsis post UTI untreated UA culture negative (3) Generalized weakness: Code(s): R53.1 - Weakness Status: Acute Assessment and Plan: CT brain normal. CT facial bones normal care coordination consulted for d/c planning (4) Falls frequently: Code(s): R29.6 - Repeated falls Status: Acute Assessment and Plan: CT brain normal. CT facial bones normal Shoulder x-ray also appears unchanged. previously went home on walker likely due to decompensating cirrhosis care coordination to help with d/c planning Plan Feeding: regular diet Analgesia: tylenol and tramadol Thromboembolic prophylaxis: lovenox Ulcer prophylaxis: PPI Glycemic control: NA Bowel regimen: NA Lines: PIV Antibiotics: Rocephin Disposition: Home when medically ready. Subjective Date/time seen: 05/07/23 14:34 Interval history: Patient is sitting up in bed. She appears drowsy and has delayed responses. She is jaundice. She says at this time she feels okay and she has intermittent generalized pain somewhat localized to her abdomen. It is difficult to get a good pain assessment from her. Will continue thiamine infusion x2 more bags. Continue midodrine for low BP, continue to monitor. Review of Systems Review of Systems: All systems reviewed & are unremarkable except as noted in HPI and below Exam Narrative: General: drowsy, well developed, well nourished, appears stated age. HEENT: normocephalic, atraumatic. Mucous membranes moist. EOMI, PERRLA, bilateral jaundice sclera, no conjunctival injection. Neck supple without JVD, lymphadenopathy, or bruit. Respiratory: clear to auscultation bilaterally. No rales/rhonic/wheezes. Cardiovascular: Regular rate and rhythm, normal S1-S2 upon auscultation. No murmurs, rubs, or clicks. PMI is nondisplaced, capillary re-fill less than 3 second. Abdomen: Soft, round, no pulsatile masses, + distended and Mildly tender. No rebound, no guarding. No CVA tenderness, no hepatosplenomegaly. Bowel sounds present to all four quadrants. No high pitch or tinkling sounds, resonant to percussion. Extremities: No cyanosis, clubbing. Trace, +1 BLE edema. Pulses are palpable 2/2. Active ROM to all four extremities. Neuro: Alert and orientated x 4. PERRLA. Cranial nerves 2-12 intact without focal deficit. Delayed processing, delayed responses. Skin: Warm, dry, and intact, without rash, erythema, or lesion. Jaundice. Lines: PIV Incisions: tap site Psych: normal speech, normal affect, no hallucinations, no dysarthria, d
[2023-05-07 17:44] LABS: Bilirubin Direct 0.3 mg/dL (0-0.3); Bilirubin,Total 3.6 mg/dL (0.2-1.3)
[2023-05-07 20:00] VITALS: PULSE 100
[2023-05-07 22:00] VITALS: BP 109/51; PULSE 105; RESP 14; TEMP 37.1; O2SAT 97
[2023-05-08] VITALS: PULSE 88
[2023-05-08 04:00] VITALS: PULSE 80
[2023-05-08 06:00] VITALS: BP 92/55; PULSE 76; RESP 16; TEMP 36.4; O2SAT 99
[2023-05-08] MEDS: chlordiazePOXIDE (*CRX) 25 MG CAPSULE 50 MG PO ×3 (06:07→17:57)
[2023-05-08 06:31] LABS: Basophils Absolute Auto 0.1 K/mm3 (0.0-0.1); Basophils Percent Auto 1.1 % (0.2-1.2); Eosinophils Absolute Auto 0.2 K/mm3 (0-0.3); Eosinophils Percent Auto 1.6 % (0-4.4); Hematocrit 28.7 % (37.0-47.0); Hemoglobin 8.6 g/dL (12.0-15.0); Immature Granulocyte Absolute 0.06 K/mm3 (0.00-0.031); Immature Granulocyte Percent A 0.5 % (0-0.5); Lymphocytes Absolute Auto 1.82 K/mm3 (0.9-3.2); Lymphocytes Percent Auto 14.4 % (18.3-44.2); Mean Corpuscular Hemoglobin 27.5 pg (26-34); Mean Corpuscular Volume 91.7 fl (80-100); Mean Platelet Volume 9.6 fl (7.4-10.4); Monocytes Absolute Auto 0.8 K/mm3 (0.1-0.6); Monocytes Percent Auto 5.9 % (2.6-8.5); Neutrophils Absolute Auto 9.7 K/mm3 (1.3-6.7); Neutrophils Percent Auto 76.5 % (45.5-73.1); Platelet Count Result 410 k/mm3 (150-375); Red Blood Count 3.13 M/mm3 (4.2-5.4); Red Cell Distribution Width 20.9 % (11.5-14.5); White Blood Count 12.6 K/mm3 (4.5-10.0)
[2023-05-08 07:39] LABS: Alanine Aminotransferase 15 U/L (6-35); Albumin Level 3.1 g/dL (3.5-5.1); Alkaline Phosphatase 153 U/L (38-126); Anion Gap 8 mmol/L (8-16); Aspartate Amino Transferase 88 U/L (14-36); Bilirubin,Total 3.8 mg/dL (0.2-1.3); Blood Urea Nitrogen 6 mg/dL (7-17); Calcium 8.9 mg/dL (8.4-10.2); Carbon Dioxide 26 mmol/L (22-30); Chloride 103 mmol/L (98-107); Estimated CRCL calculation 121 ml/min; Estimated Glomerular Filt Rate > 60; Glucose 79 mg/dL (65-110); Magnesium 1.7 mg/dL (1.6-2.3); Potassium 3.7 mmol/L (3.4-5.0); Sodium 137 mmol/L (137-145)
--- NOTE | 2023-05-08 08:40 | PCPTNOTE ---
Attempted to see patient, however patient nauseated and vomiting at this time. RN aware. PT will continue to follow per plan of care.
[2023-05-08] MEDS: ENOXAPARIN 40 MG/0.4 ML SYRINGE SUB-Q (09:01)
[2023-05-08] MEDS: MIDODRINE HCL 2.5 MG TABLET 7.5 MG PO ×3 (09:01→17:56)
[2023-05-08] MEDS: LACTULOSE 20 GM/30 ML UDC PO ×2 (09:01→17:57)
[2023-05-08] MEDS: FLUoxetine HCL 20 MG CAPSULE PO (09:01)
[2023-05-08] MEDS: ONDANSETRON INJ 4 MG/2 ML VIAL IV PUSH (09:01)
[2023-05-08] MEDS: SPIRONOLACTONE 50 MG TABLET PO (09:01)
[2023-05-08] MEDS: FUROSEMIDE 20 MG TABLET PO (09:01)
[2023-05-08] MEDS: PANTOPRAZOLE 40 MG TABLET PO (09:02)
[2023-05-08] MEDS: traMADol HCL (*CRX) 50 MG TABLET PO ×2 (10:00→21:00)
[2023-05-08] MEDS: THIAMINE 500 MG/NS 100 ML 500 MG/100 ML BAG 200 MG IVPB (10:01)
[2023-05-08 12:02] VITALS: BP 95/57; PULSE 84; RESP 14; O2SAT 100
[2023-05-08 14:00] VITALS: BP 101/48; PULSE 85; RESP 16; TEMP 36.8; O2SAT 100
--- NOTE | 2023-05-08 15:44 | P.PNIM_ITS ---
Progress Note: A&P Assessment and Plan (1) Alcoholic cirrhosis of liver with ascites: Code(s): K70.31 - Alcoholic cirrhosis of liver with ascites Status: Chronic Assessment and Plan: * CT abdomen and pelvis with IV contrast: * Impression: 1. Cirrhosis and stigmata of portal hypertension including moderate ascites. 2. Small-bowel wall thickening may represent portal hypertensive enteropathy. Fluid-filled loops of small bowel suggesting ileus or enteritis. 3. Moderate hiatal hernia. 4. Anasarca * CIWA Q4 * thiamine bag x3 * diagnostic paracentesis removed 2.4 L on 05/05, may need repeat prior to d/c * ammonia WNL, will start on lactulose BID due to clinical presentation * Librium and PRN supportive care * H&H stable, continue to monitor CBC and electrolytes * [place] on stopping drinking * Needs to follow with a liver specialist * continue Rocephin for potential SBP coverage * She may need started on beta florencia therapy for esophageal varice prophylaxis should her blood pressure improve with TID midodrine. Increased midodrine to 7.5 mg in hopes to increase her BP. UptoDate recommends starting with coreg 3.125 mg PO BID. (2) UTI (urinary tract infection): Qualifiers: Hematuria presence: with hematuria Urinary tract infection type: acute cystitis Qualified Code(s): N30.01 - Acute cystitis with hematuria Code(s): N39.0 - Urinary tract infection, site not specified Status: Ruled-out Assessment and Plan: * UA showed bacteria, previous sepsis post UTI untreated * UA culture negative (3) Generalized weakness: Code(s): R53.1 - Weakness Status: Acute Assessment and Plan: * CT brain normal. * CT facial bones normal * care coordination consulted for d/c planning (4) Falls frequently: Code(s): R29.6 - Repeated falls Status: Acute Assessment and Plan: * CT brain normal. * CT facial bones normal * Shoulder x-ray also appears unchanged. * previously went home on walker * likely due to decompensating cirrhosis * care coordination to help with d/c planning * fall in bathroom today, no trauma or LOC. XR right humerus negative for acute injury Plan Feeding: regular diet Analgesia: tylenol and tramadol Thromboembolic prophylaxis: lovenox Ulcer prophylaxis: PPI Glycemic control: NA Bowel regimen: NA Lines: PIV Antibiotics: Rocephin Disposition: Home when medically ready. Subjective Date/time seen: 05/08/23 15:44 Interval history: Patient is sitting up in bed. She appears drowsy and has delayed responses. She is jaundice. She says at this time she feels okay and she has intermittent generalized pain somewhat localized to her abdomen. It is difficult to get a good pain assessment from her. Will continue thiamine infusion x1. Will increase midodrine as her BP has remained low, and start on lactulose BID. She did have a fall in the bathroom this afternoon. Nursing reported she did not hit her head, but caught herself on the wall with her right arm and slid down. She is denying any LOC, head trauma, WASSERMAN or injury. XR of humerus showed no acute fracture or injury. Review of Systems Review of Systems: All systems reviewed & are unremarkable except as noted in HPI and below Exam Narrative: General: drowsy, well developed, well nourished, appears stated age. HEENT: normocephalic, atraumatic. Mucous membranes moist. EOMI, PERRLA, bilater al jaundice sclera, no conjunctival injection. Neck supple without JVD,
--- NOTE | 2023-05-08 15:44 | PM.IMPN ---
Progress Note: A&P Assessment and Plan (1) Alcoholic cirrhosis of liver with ascites: Code(s): K70.31 - Alcoholic cirrhosis of liver with ascites Status: Chronic Assessment and Plan: CT abdomen and pelvis with IV contrast: Impression: 1. Cirrhosis and stigmata of portal hypertension including moderate ascites. 2. Small-bowel wall thickening may represent portal hypertensive enteropathy. Fluid-filled loops of small bowel suggesting ileus or enteritis. 3. Moderate hiatal hernia. 4. Anasarca CIWA Q4 thiamine bag x3 diagnostic paracentesis removed 2.4 L on 05/05, may need repeat prior to d/c ammonia WNL, will start on lactulose BID due to clinical presentation Librium and PRN supportive care H&H stable, continue to monitor CBC and electrolytes [place] on stopping drinking Needs to follow with a liver specialist continue Rocephin for potential SBP coverage She may need started on beta florencia therapy for esophageal varice prophylaxis should her blood pressure improve with TID midodrine. Increased midodrine to 7.5 mg in hopes to increase her BP. UptoDate recommends starting with coreg 3.125 mg PO BID. (2) UTI (urinary tract infection): Qualifiers: Hematuria presence: with hematuria Urinary tract infection type: acute cystitis Qualified Code(s): N30.01 - Acute cystitis with hematuria Code(s): N39.0 - Urinary tract infection, site not specified Status: Ruled-out Assessment and Plan: UA showed bacteria, previous sepsis post UTI untreated UA culture negative (3) Generalized weakness: Code(s): R53.1 - Weakness Status: Acute Assessment and Plan: CT brain normal. CT facial bones normal care coordination consulted for d/c planning (4) Falls frequently: Code(s): R29.6 - Repeated falls Status: Acute Assessment and Plan: CT brain normal. CT facial bones normal Shoulder x-ray also appears unchanged. previously went home on walker likely due to decompensating cirrhosis care coordination to help with d/c planning fall in bathroom today, no trauma or LOC. XR right humerus negative for acute injury Plan Feeding: regular diet Analgesia: tylenol and tramadol Thromboembolic prophylaxis: lovenox Ulcer prophylaxis: PPI Glycemic control: NA Bowel regimen: NA Lines: PIV Antibiotics: Rocephin Disposition: Home when medically ready. Subjective Date/time seen: 12/07/23 15:44 Interval history: Patient is sitting up in bed. She appears drowsy and has delayed responses. She is jaundice. She says at this time she feels okay and she has intermittent generalized pain somewhat localized to her abdomen. It is difficult to get a good pain assessment from her. Will continue thiamine infusion x1. Will increase midodrine as her BP has remained low, and start on lactulose BID. She did have a fall in the bathroom this afternoon. Nursing reported she did not hit her head, but caught herself on the wall with her right arm and slid down. She is denying any LOC, head trauma, WASSERMAN or injury. XR of humerus showed no acute fracture or injury. Review of Systems Review of Systems: All systems reviewed & are unremarkable except as noted in HPI and below Exam Narrative: General: drowsy, well developed, well nourished, appears stated age. HEENT: normocephalic, atraumatic. Mucous membranes moist. EOMI, PERRLA, bilateral jaundice sclera, no conjunctival injection. Neck supple without JVD, lymphadenopathy, or bruit. Respiratory: clear to auscultation bilaterally. No rales/rhonic/wheezes. Cardiovascular: Regular rate and rhythm, normal S1-S2 upon auscultation. No murmurs, rubs, or clicks. PMI is nondisplaced, capillary re-fill less than 3 second. Abdomen: Soft, round, no pulsatile masses, + distended and Mildly tender. No rebound, no guarding. No CVA tenderness, no hepatosplenomegaly. Bowel sounds present to all four quadrants. No
[2023-05-08 21:45] VITALS: BP 87/55; PULSE 88; RESP 20; TEMP 36.6; O2SAT 95
[2023-05-09] MEDS: chlordiazePOXIDE (*CRX) 25 MG CAPSULE 50 MG PO ×4 (00:24→17:10)
[2023-05-09 06:00] VITALS: BP 96/57; PULSE 101; RESP 18; TEMP 36.7; O2SAT 100
[2023-05-09] MEDS: traMADol HCL (*CRX) 50 MG TABLET PO ×3 (06:13→20:53)
[2023-05-09 06:32] LABS: Basophils Absolute Auto 0.1 K/mm3 (0.0-0.1); Eosinophils Absolute Auto 0.3 K/mm3 (0-0.3); Eosinophils Percent Auto 2.1 % (0-4.4); Hematocrit 27.2 % (37.0-47.0); Hemoglobin 8.3 g/dL (12.0-15.0); Immature Granulocyte Absolute 0.06 K/mm3 (0.00-0.031); Immature Granulocyte Percent A 0.4 % (0-0.5); Lymphocytes Absolute Auto 1.65 K/mm3 (0.9-3.2); Lymphocytes Percent Auto 12.2 % (18.3-44.2); Mean Corpuscular HGB Conc 30.5 g/dl (32-36); Mean Corpuscular Volume 91.9 fl (80-100); Mean Platelet Volume 9.9 fl (7.4-10.4); Monocytes Absolute Auto 0.9 K/mm3 (0.1-0.6); Monocytes Percent Auto 6.9 % (2.6-8.5); Neutrophils Absolute Auto 10.4 K/mm3 (1.3-6.7); Neutrophils Percent Auto 77.4 % (45.5-73.1); Platelet Count Result 411 k/mm3 (150-375); Red Blood Count 2.96 M/mm3 (4.2-5.4); White Blood Count 13.5 K/mm3 (4.5-10.0)
[2023-05-09 06:39] LABS: Alanine Aminotransferase 16 U/L (6-35); Alkaline Phosphatase 151 U/L (38-126); Anion Gap 7 mmol/L (8-16); Aspartate Amino Transferase 81 U/L (14-36); Bilirubin,Total 3.3 mg/dL (0.2-1.3); Blood Urea Nitrogen 6 mg/dL (7-17); Calcium 8.8 mg/dL (8.4-10.2); Carbon Dioxide 24 mmol/L (22-30); Chloride 104 mmol/L (98-107); Estimated CRCL calculation 121 ml/min; Estimated Glomerular Filt Rate > 60; Glucose 91 mg/dL (65-110); Magnesium 1.8 mg/dL (1.6-2.3); Potassium 3.8 mmol/L (3.4-5.0); Sodium 135 mmol/L (137-145)
[2023-05-09] MEDS: rifAXIMin 550 MG TABLET PO ×2 (09:39→20:53)
[2023-05-09] MEDS: ENOXAPARIN 40 MG/0.4 ML SYRINGE SUB-Q (09:39)
[2023-05-09] MEDS: MIDODRINE HCL 2.5 MG TABLET 7.5 MG PO ×3 (09:39→17:10)
[2023-05-09] MEDS: FLUoxetine HCL 20 MG CAPSULE PO (09:39)
[2023-05-09] MEDS: FUROSEMIDE 20 MG TABLET PO (09:39)
[2023-05-09] MEDS: LACTULOSE 20 GM/30 ML UDC PO ×3 (09:39→17:10)
[2023-05-09] MEDS: SPIRONOLACTONE 50 MG TABLET PO (09:40)
[2023-05-09] MEDS: PANTOPRAZOLE 40 MG TABLET PO (09:40)
--- NOTE | 2023-05-09 12:11 | PC.NURSE ---
Pt is going to be getting a thoracentesis sometime after 2pm and needs to remain NPO until then. Meds will be held until she returns from the procedure.
--- NOTE | 2023-05-09 13:17 | PC.NURSE ---
Pt transported to radiology for paracentesis by stretcher at [id number].
--- NOTE | 2023-05-09 14:48 | P.PNIM_ITS ---
Progress Note: A&P Assessment and Plan (1) Alcoholic cirrhosis of liver with ascites: Code(s): K70.31 - Alcoholic cirrhosis of liver with ascites Status: Chronic Assessment and Plan: * CT abdomen and pelvis with IV contrast: * Impression: 1. Cirrhosis and stigmata of portal hypertension including moderate ascites. 2. Small-bowel wall thickening may represent portal hypertensive enteropathy. Fluid-filled loops of small bowel suggesting ileus or enteritis. 3. Moderate hiatal hernia. 4. Anasarca * CIWA Q4 * completed thiamine bag x3 * diagnostic paracentesis removed 2.4 L on 05/05, repeated today and will culture * ammonia WNL, will start on lactulose BID due to clinical presentation * Librium and PRN supportive care * H&H stable, continue to monitor CBC and electrolytes * [place] on stopping drinking * Needs to follow with a liver specialist * continue Rocephin for potential SBP coverage * She may need started on beta florencia therapy for esophageal varices prophylaxis should her blood pressure improve with TID midodrine. Increased midodrine to 7.5 mg in hopes to increase her BP. UptoDate recommends starting with coreg 3.125 mg PO BID. * started on Xifaxan today due to concern of unimproved hepatic encephalopathy with lactulose. (2) UTI (urinary tract infection): Qualifiers: Hematuria presence: with hematuria Urinary tract infection type: acute cystitis Qualified Code(s): N30.01 - Acute cystitis with hematuria Code(s): N39.0 - Urinary tract infection, site not specified Status: Ruled-out Assessment and Plan: * UA showed bacteria, previous sepsis post UTI untreated * UA culture negative (3) Generalized weakness: Code(s): R53.1 - Weakness Status: Acute Assessment and Plan: * CT brain normal. * CT facial bones normal * care coordination consulted for d/c planning (4) Falls frequently: Code(s): R29.6 - Repeated falls Status: Acute Assessment and Plan: * CT brain normal. * CT facial bones normal * Shoulder x-ray also appears unchanged. * previously went home on walker * likely due to decompensating cirrhosis * care coordination to help with d/c planning * fall in bathroom today, no trauma or LOC. XR right humerus negative for acute injury Plan Feeding: regular diet Analgesia: tylenol and tramadol Thromboembolic prophylaxis: lovenox Ulcer prophylaxis: PPI Glycemic control: NA Bowel regimen: NA Lines: PIV Antibiotics: Rocephin Disposition: Home when medically ready. Subjective Date/time seen: 05/09/23 14:48 Interval history: Patient is sitting up in bed. She appears drowsy and has delayed responses. She is jaundice. It is difficult to get a good pain assessment from her. She did have a fall in the bathroom yesterday so we discussed not getting up alone. No signs of bruising or trauma. Concern for worsening/unimproved encephalopathy so started on Xifaxan today, and will continue to monitor. Repeat paracentesis done today by US, will culture the fluid again as it was dark yellow. Review of Systems Review of Systems: All systems reviewed & are unremarkable except as noted in HPI and below Exam Narrative: General: drowsy, well developed, well nourished, appears stated age. HEENT: normocephalic, atraumatic. Mucous membranes moist. EOMI, PERRLA, bilateral jaundice sclera, no conjunctival injection. Neck supple without JVD, lymphadenopathy, or bruit. Respiratory: clear to auscul
--- NOTE | 2023-05-09 14:48 | PM.IMPN ---
Progress Note: A&P Assessment and Plan (1) Alcoholic cirrhosis of liver with ascites: Code(s): K70.31 - Alcoholic cirrhosis of liver with ascites Status: Chronic Assessment and Plan: CT abdomen and pelvis with IV contrast: Impression: 1. Cirrhosis and stigmata of portal hypertension including moderate ascites. 2. Small-bowel wall thickening may represent portal hypertensive enteropathy. Fluid-filled loops of small bowel suggesting ileus or enteritis. 3. Moderate hiatal hernia. 4. Anasarca CIWA Q4 completed thiamine bag x3 diagnostic paracentesis removed 2.4 L on 05/05, repeated today and will culture ammonia WNL, will start on lactulose BID due to clinical presentation Librium and PRN supportive care H&H stable, continue to monitor CBC and electrolytes [place] on stopping drinking Needs to follow with a liver specialist continue Rocephin for potential SBP coverage She may need started on beta florencia therapy for esophageal varices prophylaxis should her blood pressure improve with TID midodrine. Increased midodrine to 7.5 mg in hopes to increase her BP. UptoDate recommends starting with coreg 3.125 mg PO BID. started on Xifaxan today due to concern of unimproved hepatic encephalopathy with lactulose. (2) UTI (urinary tract infection): Qualifiers: Hematuria presence: with hematuria Urinary tract infection type: acute cystitis Qualified Code(s): N30.01 - Acute cystitis with hematuria Code(s): N39.0 - Urinary tract infection, site not specified Status: Ruled-out Assessment and Plan: UA showed bacteria, previous sepsis post UTI untreated UA culture negative (3) Generalized weakness: Code(s): R53.1 - Weakness Status: Acute Assessment and Plan: CT brain normal. CT facial bones normal care coordination consulted for d/c planning (4) Falls frequently: Code(s): R29.6 - Repeated falls Status: Acute Assessment and Plan: CT brain normal. CT facial bones normal Shoulder x-ray also appears unchanged. previously went home on walker likely due to decompensating cirrhosis care coordination to help with d/c planning fall in bathroom today, no trauma or LOC. XR right humerus negative for acute injury Plan Feeding: regular diet Analgesia: tylenol and tramadol Thromboembolic prophylaxis: lovenox Ulcer prophylaxis: PPI Glycemic control: NA Bowel regimen: NA Lines: PIV Antibiotics: Rocephin Disposition: Home when medically ready. Subjective Date/time seen: 05/09/23 14:48 Interval history: Patient is sitting up in bed. She appears drowsy and has delayed responses. She is jaundice. It is difficult to get a good pain assessment from her. She did have a fall in the bathroom yesterday so we discussed not getting up alone. No signs of bruising or trauma. Concern for worsening/unimproved encephalopathy so started on Xifaxan today, and will continue to monitor. Repeat paracentesis done today by US, will culture the fluid again as it was dark yellow. Review of Systems Review of Systems: All systems reviewed & are unremarkable except as noted in HPI and below Exam Narrative: General: drowsy, well developed, well nourished, appears stated age. HEENT: normocephalic, atraumatic. Mucous membranes moist. EOMI, PERRLA, bilateral jaundice sclera, no conjunctival injection. Neck supple without JVD, lymphadenopathy, or bruit. Respiratory: clear to auscultation bilaterally. No rales/rhonic/wheezes. Cardiovascular: Regular rate and rhythm, normal S1-S2 upon auscultation. No murmurs, rubs, or clicks. PMI is nondisplaced, capillary re-fill less than 3 second. Abdomen: Soft, round, no pulsatile masses, + distended and Mildly tender. No rebound, no guarding. No CVA tenderness, no hepatosplenomegaly. Bowel sounds present to all four quadrants. No high pitch or tinkling sounds, resonant to percussion. Extremities:
[2023-05-09 15:32] VITALS: BP 108/53; PULSE 82; RESP 18; TEMP 37.1; O2SAT 98
[2023-05-09 22:00] VITALS: BP 100/60; PULSE 88; RESP 20; TEMP 36.8; O2SAT 99
[2023-05-10 06:00] VITALS: BP 103/56; PULSE 82; RESP 20; TEMP 36.8; O2SAT 99
[2023-05-10] MEDS: chlordiazePOXIDE (*CRX) 25 MG CAPSULE 50 MG PO ×4 (06:13→17:47)
[2023-05-10] MEDS: traMADol HCL (*CRX) 50 MG TABLET PO ×4 (06:13→22:01)
[2023-05-10 06:46] LABS: Basophils Absolute Auto 0.2 K/mm3 (0.0-0.1); Basophils Percent Auto 1.3 % (0.2-1.2); Eosinophils Absolute Auto 0.3 K/mm3 (0-0.3); Eosinophils Percent Auto 2.5 % (0-4.4); Hemoglobin 8.3 g/dL (12.0-15.0); Immature Granulocyte Absolute 0.06 K/mm3 (0.00-0.031); Immature Granulocyte Percent A 0.5 % (0-0.5); Lymphocytes Absolute Auto 1.27 K/mm3 (0.9-3.2); Lymphocytes Percent Auto 11.1 % (18.3-44.2); Mean Corpuscular HGB Conc 30.7 g/dl (32-36); Mean Corpuscular Hemoglobin 27.8 pg (26-34); Mean Corpuscular Volume 90.3 fl (80-100); Mean Platelet Volume 9.9 fl (7.4-10.4); Monocytes Absolute Auto 0.7 K/mm3 (0.1-0.6); Monocytes Percent Auto 5.8 % (2.6-8.5); Neutrophils Percent Auto 78.8 % (45.5-73.1); Platelet Count Result 376 k/mm3 (150-375); Red Blood Count 2.99 M/mm3 (4.2-5.4); White Blood Count 11.5 K/mm3 (4.5-10.0)
[2023-05-10 06:56] LABS: Alanine Aminotransferase 15 U/L (6-35); Albumin Level 2.9 g/dL (3.5-5.1); Alkaline Phosphatase 134 U/L (38-126); Anion Gap 6 mmol/L (8-16); Aspartate Amino Transferase 70 U/L (14-36); Bilirubin,Total 2.9 mg/dL (0.2-1.3); Blood Urea Nitrogen 4 mg/dL (7-17); Calcium 8.5 mg/dL (8.4-10.2); Carbon Dioxide 24 mmol/L (22-30); Chloride 103 mmol/L (98-107); Estimated CRCL calculation 122 ml/min; Estimated Glomerular Filt Rate > 60; Glucose 90 mg/dL (65-110); Potassium 3.7 mmol/L (3.4-5.0); Sodium 133 mmol/L (137-145)
[2023-05-10] MEDS: LACTULOSE 20 GM/30 ML UDC PO ×2 (08:29→12:42)
[2023-05-10] MEDS: ENOXAPARIN 40 MG/0.4 ML SYRINGE SUB-Q (08:29)
[2023-05-10] MEDS: PANTOPRAZOLE 40 MG TABLET PO (08:30)
[2023-05-10] MEDS: SPIRONOLACTONE 50 MG TABLET PO ×2 (08:30→12:43)
[2023-05-10] MEDS: rifAXIMin 550 MG TABLET PO ×2 (08:30→22:01)
[2023-05-10] MEDS: FUROSEMIDE 20 MG TABLET PO (08:30)
[2023-05-10] MEDS: FLUoxetine HCL 20 MG CAPSULE PO (08:30)
[2023-05-10] MEDS: MIDODRINE HCL 2.5 MG TABLET 7.5 MG PO ×3 (08:30→17:47)
[2023-05-10 12:57] LABS: Ammonia 36 umol/L (9-30)
[2023-05-10 14:00] VITALS: BP 98/53; PULSE 79; RESP 18; TEMP 36.6; O2SAT 94
--- NOTE | 2023-05-10 14:44 | P.PNIM_ITS ---
Progress Note: A&P Assessment and Plan (1) Alcoholic cirrhosis of liver with ascites: Code(s): K70.31 - Alcoholic cirrhosis of liver with ascites Status: Chronic Assessment and Plan: * CT abdomen and pelvis with IV contrast: * Impression: 1. Cirrhosis and stigmata of portal hypertension including moderate ascites. 2. Small-bowel wall thickening may represent portal hypertensive enteropathy. Fluid-filled loops of small bowel suggesting ileus or enteritis. 3. Moderate hiatal hernia. 4. Anasarca * CIWA Q4 * completed thiamine bag x3 * diagnostic paracentesis removed 2.4 L on 05/05, repeated 05/09 and will culture * ammonia elevated to 36 today, increase lactulose to 30 mg TID due to clinical presentation * urine drug screen ordered * CT brain ordered * Librium and PRN supportive care * H&H stable, continue to monitor CBC and electrolytes * [place] on stopping drinking * Needs to follow with a liver specialist * continue Rocephin for potential SBP coverage * She may need started on beta florencia therapy for esophageal varices prophylaxis should her blood pressure improve with TID midodrine. Increased midodrine to 7.5 mg in hopes to increase her BP. UptoDate recommends starting with coreg 3.125 mg PO BID. * started on Xifaxan due to concern of unimproved hepatic encephalopathy with lactulose. * increased spironolactone to 100 mg, Lasix to 40 mg for refractory ascites (2) UTI (urinary tract infection): Qualifiers: Hematuria presence: with hematuria Urinary tract infection type: acute cystitis Qualified Code(s): N30.01 - Acute cystitis with hematuria Code(s): N39.0 - Urinary tract infection, site not specified Status: Ruled-out Assessment and Plan: * UA showed bacteria, previous sepsis post UTI untreated * UA culture negative (3) Generalized weakness: Code(s): R53.1 - Weakness Status: Acute Assessment and Plan: * CT brain normal, will repeat today for worsening cognition * CT facial bones normal * care coordination consulted for d/c planning (4) Falls frequently: Code(s): R29.6 - Repeated falls Status: Acute Assessment and Plan: * CT brain normal. * CT facial bones normal * Shoulder x-ray also appears unchanged. * previously went home on walker * likely due to decompensating cirrhosis * care coordination to help with d/c planning * XR right humerus negative for acute injury post fall in bathroom Plan Feeding: regular diet Analgesia: tylenol and tramadol Thromboembolic prophylaxis: lovenox Ulcer prophylaxis: PPI Glycemic control: NA Bowel regimen: NA Lines: PIV Antibiotics: Rocephin Disposition: Home when medically ready. Subjective Date/time seen: 05/10/23 14:44 Interval history: Patient is laying in bed, her mental status and cognition is not at her baseline. She appears drowsy and has delayed responses. She continues to be very lethargic and difficult to arouse. It is difficult to get a good pain assessment from her. Concern for worsening/unimproved encephalopathy. Repeat ammonia was elevated, increased her lactulose. Increased her spironolactone and Lasix with hopes to help her ascites. Ordered drug screen urine and CT scan of her brain. Repeat paracentesis done yesterday by US, will culture the fluid again as it was dark yellow. Will continue to closely monitor. Review of Systems Review of Systems: All systems reviewed & are unremarkable except as noted in HPI and below Exam Narr
--- NOTE | 2023-05-10 14:44 | PM.IMPN ---
Progress Note: A&P Assessment and Plan (1) Alcoholic cirrhosis of liver with ascites: Code(s): K70.31 - Alcoholic cirrhosis of liver with ascites Status: Chronic Assessment and Plan: CT abdomen and pelvis with IV contrast: Impression: 1. Cirrhosis and stigmata of portal hypertension including moderate ascites. 2. Small-bowel wall thickening may represent portal hypertensive enteropathy. Fluid-filled loops of small bowel suggesting ileus or enteritis. 3. Moderate hiatal hernia. 4. Anasarca CIWA Q4 completed thiamine bag x3 diagnostic paracentesis removed 2.4 L on 05/05, repeated 05/09 and will culture ammonia elevated to 36 today, increase lactulose to 30 mg TID due to clinical presentation urine drug screen ordered CT brain ordered Librium and PRN supportive care H&H stable, continue to monitor CBC and electrolytes [place] on stopping drinking Needs to follow with a liver specialist continue Rocephin for potential SBP coverage She may need started on beta florencia therapy for esophageal varices prophylaxis should her blood pressure improve with TID midodrine. Increased midodrine to 7.5 mg in hopes to increase her BP. UptoDate recommends starting with coreg 3.125 mg PO BID. started on Xifaxan due to concern of unimproved hepatic encephalopathy with lactulose. increased spironolactone to 100 mg, Lasix to 40 mg for refractory ascites (2) UTI (urinary tract infection): Qualifiers: Hematuria presence: with hematuria Urinary tract infection type: acute cystitis Qualified Code(s): N30.01 - Acute cystitis with hematuria Code(s): N39.0 - Urinary tract infection, site not specified Status: Ruled-out Assessment and Plan: UA showed bacteria, previous sepsis post UTI untreated UA culture negative (3) Generalized weakness: Code(s): R53.1 - Weakness Status: Acute Assessment and Plan: CT brain normal, will repeat today for worsening cognition CT facial bones normal care coordination consulted for d/c planning (4) Falls frequently: Code(s): R29.6 - Repeated falls Status: Acute Assessment and Plan: CT brain normal. CT facial bones normal Shoulder x-ray also appears unchanged. previously went home on walker likely due to decompensating cirrhosis care coordination to help with d/c planning XR right humerus negative for acute injury post fall in bathroom Plan Feeding: regular diet Analgesia: tylenol and tramadol Thromboembolic prophylaxis: lovenox Ulcer prophylaxis: PPI Glycemic control: NA Bowel regimen: NA Lines: PIV Antibiotics: Rocephin Disposition: Home when medically ready. Subjective Date/time seen: 05/10/23 14:44 Interval history: Patient is laying in bed, her mental status and cognition is not at her baseline. She appears drowsy and has delayed responses. She continues to be very lethargic and difficult to arouse. It is difficult to get a good pain assessment from her. Concern for worsening/unimproved encephalopathy. Repeat ammonia was elevated, increased her lactulose. Increased her spironolactone and Lasix with hopes to help her ascites. Ordered drug screen urine and CT scan of her brain. Repeat paracentesis done yesterday by US, will culture the fluid again as it was dark yellow. Will continue to closely monitor. Review of Systems Review of Systems: All systems reviewed & are unremarkable except as noted in HPI and below Exam Narrative: General: drowsy, well developed, well nourished, appears stated age. HEENT: normocephalic, atraumatic. Mucous membranes moist. EOMI, PERRLA, bilateral jaundice sclera, no conjunctival injection. Neck supple without JVD, lymphadenopathy, or bruit. Respiratory: clear to auscultation bilaterally. No rales/rhonic/wheezes. Cardiovascular: Regular rate and rhythm, normal S1-S2 upon auscultation. No murmurs, rubs, or clicks. PMI is nondisplaced, capi
[2023-05-10 14:47] LABS: Alveolar/Arterial O2 Gradient 39.7 mmHg; Base Excess ABG 2.7 mEq/l (+/-2.0); Device ROOM AIR; Fractional Inspired Oxygen 21 %; HCO3 ABG 25.9 mEq/l (22.0-26.0); Modified Allen's Test Pass; Oxygen Content ABG 12.4 %vol (16.0-22.0); Oxygen Saturation ABG 95.2 % (95.0-100.0); Oxyhemoglobin 92.4 % THb (90.0-100.0); PCO2 ABG 34.5 mmHg (35.0-45.0); PO2 ABG 68.7 mmHg (80.0-100.0); PO2 FiO2 Ratio Arterial Blood 3.27 %; Site Drawn LEFT RADIAL; Total Hemoglobin 9.5 g/dL (12.0-18.0); pH ABG 7.494 (7.350-7.450)
[2023-05-10 16:11] LABS: Amphetamine Screen Urine Negative (Negative); Barbiturate Screen Urine Negative (Negative); Benzodiazepines Screen Urine Positive (Negative); Cannabinoid Screen Urine Positive (Negative); Cocaine Screen Urine Negative (Negative); Methadone Screen Urine Negative (Negative); Opiate Screen Urine Negative (Negative); Phencyclidine Screen Urine Negative (Negative)
[2023-05-10] MEDS: LACTULOSE 20 GM/30 ML UDC 30 GM PO (17:46)
[2023-05-10] MEDS: ALBUMIN HUMAN 25% 25 GM/100 ML 100 ML IVPB (17:47)
[2023-05-10 22:00] VITALS: BP 95/54; PULSE 74; RESP 18; TEMP 36.7; O2SAT 93
[2023-05-10 22:16] LABS: Glucose Point of Care 108 mg/dl (65-105)
[2023-05-11] MEDS: chlordiazePOXIDE (*CRX) 25 MG CAPSULE 50 MG PO ×5 (00:22→23:08)
[2023-05-11] MEDS: ALBUMIN HUMAN 25% 25 GM/100 ML 100 ML IVPB ×3 (00:22→11:26)
[2023-05-11 06:00] VITALS: BP 97/54; PULSE 76; RESP 18; TEMP 36.4; O2SAT 94
[2023-05-11] MEDS: traMADol HCL (*CRX) 50 MG TABLET PO ×3 (06:06→16:53)
[2023-05-11 07:53] LABS: Basophils Absolute Auto 0.2 K/mm3 (0.0-0.1); Basophils Percent Auto 1.3 % (0.2-1.2); Eosinophils Absolute Auto 0.3 K/mm3 (0-0.3); Eosinophils Percent Auto 2.7 % (0-4.4); Hematocrit 26.2 % (37.0-47.0); Hemoglobin 7.9 g/dL (12.0-15.0); Immature Granulocyte Absolute 0.06 K/mm3 (0.00-0.031); Immature Granulocyte Percent A 0.5 % (0-0.5); Lymphocytes Absolute Auto 1.06 K/mm3 (0.9-3.2); Lymphocytes Percent Auto 8.8 % (18.3-44.2); Mean Corpuscular HGB Conc 30.2 g/dl (32-36); Mean Corpuscular Hemoglobin 27.4 pg (26-34); Mean Platelet Volume 10.2 fl (7.4-10.4); Monocytes Absolute Auto 0.8 K/mm3 (0.1-0.6); Neutrophils Absolute Auto 9.6 K/mm3 (1.3-6.7); Neutrophils Percent Auto 79.7 % (45.5-73.1); Platelet Count Result 326 k/mm3 (150-375); Red Blood Count 2.88 M/mm3 (4.2-5.4); Red Cell Distribution Width 21.1 % (11.5-14.5); White Blood Count 12.1 K/mm3 (4.5-10.0)
[2023-05-11 08:17] LABS: Alanine Aminotransferase 15 U/L (6-35); Albumin Level 3.5 g/dL (3.5-5.1); Alkaline Phosphatase 117 U/L (38-126); Anion Gap 3 mmol/L (8-16); Aspartate Amino Transferase 77 U/L (14-36); Bilirubin,Total 3.2 mg/dL (0.2-1.3); Blood Urea Nitrogen 3 mg/dL (7-17); Calcium 8.9 mg/dL (8.4-10.2); Carbon Dioxide 24 mmol/L (22-30); Chloride 101 mmol/L (98-107); Estimated CRCL calculation 123 ml/min; Estimated Glomerular Filt Rate > 60; Glucose 94 mg/dL (65-110); Potassium 3.6 mmol/L (3.4-5.0); Sodium 128 mmol/L (137-145)
[2023-05-11] MEDS: FLUoxetine HCL 20 MG CAPSULE PO (08:20)
[2023-05-11] MEDS: LACTULOSE 20 GM/30 ML UDC 30 GM PO ×3 (08:20→16:52)
[2023-05-11] MEDS: FUROSEMIDE 40 MG TABLET PO (08:20)
[2023-05-11] MEDS: ENOXAPARIN 40 MG/0.4 ML SYRINGE SUB-Q (08:20)
[2023-05-11] MEDS: rifAXIMin 550 MG TABLET PO ×2 (08:20→20:07)
[2023-05-11] MEDS: MIDODRINE HCL 2.5 MG TABLET 7.5 MG PO ×3 (08:20→16:53)
[2023-05-11] MEDS: PANTOPRAZOLE 40 MG TABLET PO (08:20)
[2023-05-11] MEDS: SPIRONOLACTONE 50 MG TABLET 100 MG PO (08:20)
[2023-05-11 09:13] LABS: Glucose Peritoneal Fluid 99
[2023-05-11 09:14] LABS: Total Protein Peritoneal Fluid <3.0
[2023-05-11 09:15] LABS: LDH Peritoneal Fluid 22
[2023-05-11] MEDS: SODIUM CHLORIDE 0.9% IV 1,000 ML 100 ML IV CONT ×2 (09:59→22:01)
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
[2023-05-11 14:00] VITALS: BP 96/46; PULSE 50; RESP 18; TEMP 37.4; O2SAT 94
--- NOTE | 2023-05-11 15:27 | PCPTNOTE ---
Hold PT today per nursing- will cont per POC
[2023-05-11 21:36] VITALS: BP 99/59; PULSE 88; RESP 18; TEMP 37.2; O2SAT 97
[2023-05-12] MEDS: chlordiazePOXIDE (*CRX) 25 MG CAPSULE 50 MG PO (05:21)
[2023-05-12] MEDS: traMADol HCL (*CRX) 50 MG TABLET PO (05:26)
[2023-05-12 06:00] VITALS: BP 95/59; PULSE 80; RESP 16; TEMP 36.4; O2SAT 100
[2023-05-12 07:53] LABS: Ammonia 29 umol/L (9-30)
[2023-05-12 07:53] LABS: Basophils Absolute Auto 0.1 K/mm3 (0.0-0.1); Basophils Percent Auto 0.7 % (0.2-1.2); Eosinophils Absolute Auto 0.3 K/mm3 (0-0.3); Eosinophils Percent Auto 2.3 % (0-4.4); Hematocrit 27.2 % (37.0-47.0); Immature Granulocyte Absolute 0.03 K/mm3 (0.00-0.031); Immature Granulocyte Percent A 0.3 % (0-0.5); Lymphocytes Absolute Auto 1.09 K/mm3 (0.9-3.2); Lymphocytes Percent Auto 10.1 % (18.3-44.2); Mean Corpuscular HGB Conc 29.4 g/dl (32-36); Mean Corpuscular Hemoglobin 27.9 pg (26-34); Mean Corpuscular Volume 94.8 fl (80-100); Mean Platelet Volume 10.3 fl (7.4-10.4); Monocytes Absolute Auto 0.7 K/mm3 (0.1-0.6); Monocytes Percent Auto 6.1 % (2.6-8.5); Neutrophils Absolute Auto 8.6 K/mm3 (1.3-6.7); Neutrophils Percent Auto 80.5 % (45.5-73.1); Platelet Count Result 314 k/mm3 (150-375); Red Blood Count 2.87 M/mm3 (4.2-5.4); Red Cell Distribution Width 21.2 % (11.5-14.5); White Blood Count 10.7 K/mm3 (4.5-10.0)
[2023-05-12 08:04] LABS: Alanine Aminotransferase 13 U/L (6-35); Albumin Level 3.2 g/dL (3.5-5.1); Alkaline Phosphatase 95 U/L (38-126); Anion Gap 8 mmol/L (8-16); Aspartate Amino Transferase 60 U/L (14-36); Bilirubin,Total 2.8 mg/dL (0.2-1.3); Calcium 8.2 mg/dL (8.4-10.2); Carbon Dioxide 22 mmol/L (22-30); Chloride 103 mmol/L (98-107); Estimated CRCL calculation 102 ml/min; Estimated Glomerular Filt Rate > 60; Glucose 83 mg/dL (65-110); Potassium 3.7 mmol/L (3.4-5.0); Sodium 133 mmol/L (137-145)
[2023-05-12 08:08] LABS: Blood Urea Nitrogen < 2 mg/dL (7-17)
[2023-05-12] MEDS: FLUoxetine HCL 20 MG CAPSULE PO (08:22)
[2023-05-12] MEDS: SPIRONOLACTONE 50 MG TABLET 100 MG PO (08:22)
[2023-05-12] MEDS: FUROSEMIDE 40 MG TABLET PO (08:22)
[2023-05-12] MEDS: MIDODRINE HCL 2.5 MG TABLET 7.5 MG PO (08:22)
[2023-05-12] MEDS: rifAXIMin 550 MG TABLET PO (08:22)
[2023-05-12] MEDS: LACTULOSE 20 GM/30 ML UDC 30 GM PO (08:22)
[2023-05-12] MEDS: ENOXAPARIN 40 MG/0.4 ML SYRINGE SUB-Q (08:22)
[2023-05-12] MEDS: PANTOPRAZOLE 40 MG TABLET PO (08:22)
--- NOTE | 2023-05-12 08:50 | PCOTNOTE ---
Attempted to see Patient at this time. Upon arrival, Patient very emotional, crying and very angry. Patient stated her fiance' yesterday and shes doing nothing with anyone. Patient refused any services at this time.
[2023-05-12 10:53] LABS: Platelet Estimate Adequate (Adequate)
[2023-05-12 10:54] LABS: Acanthocytes 1+ (NORMAL); Burr Cells 2+ (NORMAL); Ovalocytes 1+ (NORMAL); Poikilocytosis 1+ (NORMAL); Schistocytes Rare (NORMAL)
--- NOTE | 2023-05-12 11:55 | PC.NURSE ---
Patient verbalizes that she wants to sign out AMCande Perera to bedside to discuss with patient. Educated on the importance of hospitalization and receiving care until patient is well enough to be medically cleared. Patient alert and oriented to person, place, time, and situation. Patient is unable to find a ride to leave the hospital. Patient refusing bed and chair alarms at this time, educated on the importance of safety and fall risk measures, still refusing. Patient is still in room 302 as of 12:00 PM, refusing care and safety measures.
--- NOTE | 2023-05-12 12:08 | PCPTNOTE ---
Patient refusing care at this time.
--- NOTE | 2023-05-12 13:40 | P.DS_ITS ---
DS: Admitting Diagnosis Discharge Date 05/12/23 Admitting Diagnosis falls DS: Discharge Diagnosis Discharge Diagnosis (1) Alcoholic cirrhosis of liver with ascites: Code(s): K70.31 - Alcoholic cirrhosis of liver with ascites Status: Chronic Assessment and Plan: * CT abdomen and pelvis with IV contrast: * Impression: 1. Cirrhosis and stigmata of portal hypertension including moderate ascites. 2. Small-bowel wall thickening may represent portal hypertensive enteropathy. Fluid-filled loops of small bowel suggesting ileus or enteritis. 3. Moderate hiatal hernia. 4. Anasarca * CIWA Q4 * completed thiamine bag x3 * diagnostic paracentesis removed 2.4 L on 05/05, repeated 05/09 and will culture * ammonia elevated to 36 05/10, increased lactulose to 30 mg TID due to clinical presentation * urine drug screen positive for MJ and benzos * CT brain normal * Librium and PRN supportive care * H&H stable, continue to monitor CBC and electrolytes * [place] on stopping drinking * Needs to follow with a liver specialist * continue Rocephin for potential SBP coverage * started on Xifaxan due to concern of unimproved hepatic encephalopathy with lactulose. * increased spironolactone to 100 mg, Lasix to 40 mg for refractory ascites * albumin replacement x4 bags * sodium 133 this am, d/c fluids and monitor * She may need to start on beta florencia therapy for esophageal varices prophylaxis should her blood pressure improve with TID midodrine. Increased midodrine to 7.5 mg in hopes to increase her BP. UptoDate recommends starting with Coreg 3.125 mg PO BID. (2) UTI (urinary tract infection): Qualifiers: Hematuria presence: with hematuria Urinary tract infection type: acute cystitis Qualified Code(s): N30.01 - Acute cystitis with hematuria Code(s): N39.0 - Urinary tract infection, site not specified Status: Ruled-out Assessment and Plan: * UA showed bacteria, previous sepsis post UTI untreated * UA culture negative (3) Generalized weakness: Code(s): R53.1 - Weakness Status: Acute Assessment and Plan: * CT brain normal, will repeat today for worsening cognition * CT facial bones normal * care coordination consulted for d/c planning (4) Falls frequently: Code(s): R29.6 - Repeated falls Status: Acute Assessment and Plan: * CT brain normal. * CT facial bones normal * Shoulder x-ray also appears unchanged. * previously went home on walker * likely due to decompensating cirrhosis * care coordination to help with d/c planning * XR right humerus negative for acute injury post fall in bathroom DS: Summary Hospital Course Hospital Course: Patient left AMA this morning. She insisted her sister could take care of her. Went to patient bedside to discuss risks, encouraged her to follow up with a rhinestone setter and the importance of her smoking and drinking cessation for her health and outcomes. Time spent discussing smoking cessation with patient: 3 to 10 minutes Status at Discharge Functional status at discharge: wheelchair bound Overall status at discharge: patient is not back to baseline Time Spent with Patient Time attestation: Total time spent providing and/or coordinating discharge services: Exam Narrative: General: drowsy, well developed, well nourished, appears stated age. HEENT: normocephalic, atraumatic. Mucous membranes moist. EOMI, PERRLA, bilateral jaundice sclera, no conjunctival injection. Neck supple without JVD, lymphadenopa
--- NOTE | 2023-05-12 13:40 | PM.DS ---
DS: Admitting Diagnosis Discharge Date 05/12/23 Admitting Diagnosis falls DS: Discharge Diagnosis Discharge Diagnosis (1) Alcoholic cirrhosis of liver with ascites: Code(s): K70.31 - Alcoholic cirrhosis of liver with ascites Status: Chronic Assessment and Plan: CT abdomen and pelvis with IV contrast: Impression: 1. Cirrhosis and stigmata of portal hypertension including moderate ascites. 2. Small-bowel wall thickening may represent portal hypertensive enteropathy. Fluid-filled loops of small bowel suggesting ileus or enteritis. 3. Moderate hiatal hernia. 4. Anasarca CIWA Q4 completed thiamine bag x3 diagnostic paracentesis removed 2.4 L on 05/05, repeated 05/09 and will culture ammonia elevated to 36 05/10, increased lactulose to 30 mg TID due to clinical presentation urine drug screen positive for MJ and benzos CT brain normal Librium and PRN supportive care H&H stable, continue to monitor CBC and electrolytes [place] on stopping drinking Needs to follow with a liver specialist continue Rocephin for potential SBP coverage started on Xifaxan due to concern of unimproved hepatic encephalopathy with lactulose. increased spironolactone to 100 mg, Lasix to 40 mg for refractory ascites albumin replacement x4 bags sodium 133 this am, d/c fluids and monitor She may need to start on beta florencia therapy for esophageal varices prophylaxis should her blood pressure improve with TID midodrine. Increased midodrine to 7.5 mg in hopes to increase her BP. UptoDate recommends starting with Coreg 3.125 mg PO BID. (2) UTI (urinary tract infection): Qualifiers: Hematuria presence: with hematuria Urinary tract infection type: acute cystitis Qualified Code(s): N30.01 - Acute cystitis with hematuria Code(s): N39.0 - Urinary tract infection, site not specified Status: Ruled-out Assessment and Plan: UA showed bacteria, previous sepsis post UTI untreated UA culture negative (3) Generalized weakness: Code(s): R53.1 - Weakness Status: Acute Assessment and Plan: CT brain normal, will repeat today for worsening cognition CT facial bones normal care coordination consulted for d/c planning (4) Falls frequently: Code(s): R29.6 - Repeated falls Status: Acute Assessment and Plan: CT brain normal. CT facial bones normal Shoulder x-ray also appears unchanged. previously went home on walker likely due to decompensating cirrhosis care coordination to help with d/c planning XR right humerus negative for acute injury post fall in bathroom DS: Summary Hospital Course Hospital Course: Patient left AMA this morning. She insisted her sister could take care of her. Went to patient bedside to discuss risks, encouraged her to follow up with a medical delivery driver and the importance of her smoking and drinking cessation for her health and outcomes. Time spent discussing smoking cessation with patient: 3 to 10 minutes Status at Discharge Functional status at discharge: wheelchair bound Overall status at discharge: patient is not back to baseline Time Spent with Patient Time attestation: Total time spent providing and/or coordinating discharge services: Exam Narrative: General: drowsy, well developed, well nourished, appears stated age. HEENT: normocephalic, atraumatic. Mucous membranes moist. EOMI, PERRLA, bilateral jaundice sclera, no conjunctival injection. Neck supple without JVD, lymphadenopathy, or bruit. Respiratory: clear to auscultation bilaterally. No rales/rhonic/wheezes. Cardiovascular: Regular rate and rhythm, normal S1-S2 upon auscultation. No murmurs, rubs, or clicks. PMI is nondisplaced, capillary re-fill less than 3 second. Abdomen: Soft, round, no pulsatile masses, + distended and Mildly tender. No rebound, no guarding. No CVA tenderness, no hepatosplenomegaly. Bowel sounds present to all four quadrants. No high pi
[2023-05-16 07:58] LABS: Albumin Peritoneal Fluid 0.7
[2023-05-16 08:15] LABS: Amylase Peritoneal Fluid <10
--- NOTE | 2023-05-22 13:23 | PC.NURSE ---
Personal belongings bag including cell phone and I pad located in Housekeeping department and returned to patient by Sb from [facility].
== END 2023-05-12 13:30 | disposition left against medical advice (07) | DRG 280 ==
LOC: ANHED 22:22 → ANH3MEDSUR 05-05 03:17
PROVIDERS: Nurse Practitioner Acute Care; Admitting Provider Internal Medicine; Emergency Provider Physician Assistant; PCP Internal Medicine Gastroenterology; Visit Provider Nurse Practitioner
DX: K70.31 Alcoholic cirrhosis of liver with ascites (principal); K70.11 Alcoholic hepatitis with ascites; K76.82 Hepatic encephalopathy; K76.6 Portal hypertension; I95.9 Hypotension, unspecified; N39.0 Urinary tract infection, site not specified; K44.9 Diaphragmatic hernia without obstruction or gangrene; R29.6 Repeated falls; F32.A Depression, unspecified; F17.210 Nicotine dependence, cigarettes, uncomplicated
CPT/HCPCS: 36415; 36600; 49083; 70450; 70486; 71045; 73030; 73060; 74177; 80048; 80053; 80076; 80307; 81001; 82042; 82140; 82150; 82247; 82248; 82607; 82746; 82805; 82945; 82948; 83615; 83735; 83880; 84157; 84702; 85025; 85027; 85610; 85730; 86140; 87070; 87075; 87086; 87205; 89051; 93005; 96365; 96372; 96375; 96376; 97116; 97161; 97165; 97530; 97535; 99285; A9270; G0378; G0379; J0696; J1650; J1956; J2060; J2270; J2405; J3411; J7030; P9047; Q9967

== ENCOUNTER 2023-05-24 16:52 | Emergency (ER) | payer OTHER, SELFPAY ==
[2023-05-24 17:33] VITALS: BP 99/66; PULSE 95; RESP 16; TEMP 36.5; O2SAT 99
[2023-05-24 17:40] LABS: Glucose Point of Care 83 mg/dl (65-105)
[2023-05-24 20:51] VITALS: BP 122/72; PULSE 85; RESP 14; O2SAT 100
--- NOTE | 2023-05-24 21:45 | ED.GENADULT ---
HPI - General Adult General Chief complaint: Recheck/Abnormal Lab/Rx Stated complaint: low blood sugar Time Seen by Provider: 05/24/23 21:32 History of Present Illness HPI narrative: Patient is a 31-year-old female who presents to the emergency department is evening complaining of a low blood sugar. Patient was recently seen at our facility as a new left AMA. She has a history of alcohol abuse with alcoholic cirrhosis and patient admits that she has quit drinking alcohol. She is tearful and states that her fiance recently and that she has no place to stay as his place is now all locked up. Patient stayed with her friend last night who she states that she can not get a hold out today. Her sister dropped her to the emergency department today and patient states that she can not get a hold of her sister now as she is sleeping and there is no way she is going to get a hold of her. patient states that she does not have any medical problem at this. Patient denies any chest pain, shortness of breath, nausea, vomiting, abdominal pain, dysuria, hematuria, constipation, diarrhea, melena, hematochezia, fevers or chills. Patient also denies any headaches, dizziness, lightheadedness, blurry visions, focal weakness, numbness and or tingling. There are no other modifying, alleviating, or precipitating factors at this time. Related Data Home Medications Medication Instructions Recorded Confirmed furosemide 20 mg tablet 20 mg PO DAILY 03/01/23 05/05/23 omeprazole 20 mg capsule,delayed 20 mg PO DAILY 03/01/23 05/05/23 release spironolactone 50 mg tablet 50 mg PO DAILY 03/01/23 05/05/23 furosemide 20 mg tablet 20 mg PO DAILY 04/28/23 04/28/23 omeprazole 40 mg capsule,delayed 40 mg PO DAILY 04/28/23 04/28/23 release spironolactone 50 mg tablet 50 mg PO DAILY 04/28/23 04/28/23 Allergies Allergy/AdvReac Type Severity Reaction Status Date / Time apple Allergy Anaphylaxis Verified 05/24/23 16:54 Penicillins Allergy Anaphylaxis Verified 05/24/23 16:54 Sulfa (Sulfonamide AdvReac Nausea and Verified 05/24/23 16:54 Antibiotics) Vomiting preservatives in apple Allergy Severe Swelling Uncoded 05/24/23 16:54 juice/ throat to swell Review of Systems Review of Systems: All systems are reviewed and are negative unless stated otherwise in the HPI. [facility] Past Medical History Medical History Acute blood loss anemia Alcohol withdrawal Alcoholic cirrhosis of liver with ascites Alcoholic hepatitis Alcoholic hepatitis Alcoholism Anxiety Ascites Cirrhosis, alcoholic Cirrhosis, alcoholic Closed fracture of glenoid cavity of right scapula Coffee ground emesis Depression Depression Erosive esophagitis Surgical History Surgical History History of abdominal paracentesis No significant past surgical history Family History Family History Mother Cirrhosis Brain aneurysm Mother Family history of malignant neoplasm of cervix COPD (chronic obstructive pulmonary disease) Father COPD (chronic obstructive pulmonary disease) Sibling Celiac disease Social History Social History Social History: Currently lives with her jinny?. Surrogate Decision Maker: jinny Jimenez?. Code Status: Full Code. Smoking packs per day: 0.25 Smoking cigarettes per day: 5.0 Years smoked: 20 Smoking pack-years: 5.00 Smoking status: Current every day smoker Tobacco type: cigarettes Second hand tobacco smoke exposure: Yes Alcohol intake: current Drinks per week: 20 Alcohol use details: 1 Pint of hard ETOH per day minimum, daily. Heavy ETOH use for the past 10 years as of 04/23/23. Substance use: current Substance use type: marijuana Last use: 04/22/23 Lack of Transportation: No Lack of Food:
[2023-05-24 21:46] VITALS: BP 103/58; PULSE 83; RESP 21; O2SAT 100
[2023-05-24 22:15] VITALS: PULSE 86; RESP 17; O2SAT 96
[2023-05-24 22:16] VITALS: BP 102/65; PULSE 89; RESP 20; O2SAT 97
== END 2023-05-24 22:57 | disposition home or self-care (01) ==
PROVIDERS: Emergency Provider Emergency Medicine; PCP Internal Medicine Gastroenterology
DX: K74.60 Unspecified cirrhosis of liver (principal); F17.210 Nicotine dependence, cigarettes, uncomplicated; F32.A Depression, unspecified; F41.9 Anxiety disorder, unspecified
CPT/HCPCS: 82948; 99282